=== PATIENT | female | born 1970 | race Hispanic/Latino ===

== ENCOUNTER 2018-01-18 07:30 | Day surgery (SDC) | payer OTHER, MEDICARE ==
[2018-01-18] MEDS ORDERED: Lactated Ringer's 1,000 ML IV ONE (08:09)
[2018-01-18] MEDS ORDERED: Etomidate 20 mg/10ml Inj IV ONE (08:36)
[2018-01-18] MEDS ORDERED: ePHEDrine 50 mg/ml Inj ONE (08:36)
[2018-01-18] MEDS ORDERED: Midazolam 2 MG/2 ML VIAL ONE (08:37)
[2018-01-18] MEDS ORDERED: Esmolol 100 mg/10ml Inj IV ONE (08:37)
[2018-01-18] MEDS ORDERED: Benzocaine/Butamben/Tetracai 14-2-2% TOP Spray TOP ONE (08:37)
[2018-01-18] MEDS ORDERED: Propofol 10 mg/ml Inj (20 ML) ONE (08:38)
[2018-01-18 09:21] VITALS: PULSE 82; TEMP 97
[2018-01-18 09:24] VITALS: BP 145/63; RESP 16; O2SAT 96
[2018-01-18] MEDS ORDERED: Labetalol 5mg/ml (4ml) ONE (15:40)
== END 2018-01-18 13:11 | disposition home or self-care (01) ==
LOC: H.ENDO 07:30 → EDSTATUS 08:45 → H.ENDO 13:11
PROVIDERS: ATTEND Internal Medicine Gastroenterology
DX: K30 Functional dyspepsia (principal); K31.9 Disease of stomach and duodenum, unspecified; J45.909 Unspecified asthma, uncomplicated; I25.10 Atherosclerotic heart disease of native coronary artery without angina pectoris; I50.9 Heart failure, unspecified; E11.9 Type 2 diabetes mellitus without complications; Z86.73 Personal history of transient ischemic attack (TIA), and cerebral infarction without residual deficits
CPT/HCPCS: 43239; 88305; J2250; J2704; J7120

== ENCOUNTER 2018-11-08 15:34 | Inpatient (IN) | payer OTHER, MEDICARE ==
[2018-11-08 15:34] VITALS: BMI 35.3
[2018-11-08 17:10] LABS: BASO % 0.9 % (0.0-2.0); EOS # 0.1 K/uL (0.0-0.7); EOS % 2.5 % (0.0-4.0); HEMOGLOBIN 11.8 g/dL (12.0-16.0); LYMPH # 0.9 K/uL (1.0-4.3); LYMPH % 25.3 % (20.0-40.0); MEAN CELL VOLUME 82.5 fl (81.0-99.0); MEAN CORPUSCULAR HEMOGLOBIN 26.8 pg (27.0-31.0); MEAN CORPUSCULAR HGB CONC 32.5 g/dL (33.0-37.0); MEAN PLATELET VOLUME 7.9 fl (7.2-11.7); MONO # 0.2 K/uL (0.0-0.8); MONO % 5.2 % (0.0-10.0); NEUT # 2.5 K/uL (1.8-7.0); NEUT % 66.1 % (50.0-75.0); NRBC % 0.1 % (0.0-0.0); RBC 4.39 Mil/uL (3.80-5.20); RED CELL DISTRIBUTION WIDTH 19.8 % (11.5-14.5); WHITE BLOOD COUNT 3.7 K/uL (4.8-10.8)
[2018-11-08 17:41] LABS: ALB/GLOB RATIO 0.9 (1.0-2.1); ALBUMIN 3.6 g/dL (3.5-5.0); ALT/SGPT 17 U/L (9-52); AST/SGOT 78 U/L (14-36); BLOOD UREA NITROGEN 13 mg/dl (7-17); CALCIUM 8.7 mg/dL (8.4-10.2); GFR NON-AFRICAN AMERICAN 59
[2018-11-08 17:52] LABS: B-TYPE NATRIURETIC PEPTIDE 1570 pg/ml (0-450)
--- NOTE | 2018-11-08 19:07 | CT ---
Date of service: 11/08/2018 PROCEDURE: CT Abdomen and Pelvis without intravenous contrast HISTORY: upper abd pain, nausea, anorexia COMPARISON: Comparison is made with 11/25/2017 TECHNIQUE: Axial and reformatted coronal and sagittal CT images of the abdomen and pelvis were obtained without IV or oral contrast administration.. Contrast dose: 0 Radiation dose: Total exam DLP = 875.01 mGy-cm. This CT exam was performed using one or more of the following dose reduction techniques: Automated exposure control, adjustment of the mA and/or kV according to patient size, and/or use of iterative reconstruction technique. FINDINGS: LOWER THORAX: Unremarkable. LIVER: Cirrhotic manifestation of the liver are again noted. The evaluation for possible small liver lesion is limited without IV contrast administration. GALLBLADDER AND BILE DUCTS: Distended gallbladder demonstrate mild diffuse wall thickening. PANCREAS: Heterogeneous pancreas. The main pancreatic duct is not clearly visualized. SPLEEN: Splenomegaly is noted. ADRENALS: Unremarkable. No mass. KIDNEYS AND URETERS: Unremarkable. No hydronephrosis. No solid mass. VASCULATURE: Unremarkable. No aortic aneurysm. Moderate aortic atherosclerotic calcification and mural plaque present. BOWEL: Unremarkable. No obstruction. No gross mural thickening. APPENDIX: No evidence of appendicitis PERITONEUM: Unremarkable. No free fluid. No free air. LYMPH NODES: Unremarkable. No enlarged lymph nodes. BLADDER: Unremarkable. REPRODUCTIVE: There is a complex thick wall cystic lesion at the left adnexa measures 5.7 centimeter BONES: No evidence of destructive bony lesion. OTHER FINDINGS: Small amount of ascites in the abdomen and pelvis IMPRESSION: Advanced cirrhosis with findings suggestive of portal hypertension including ascites and splenomegaly. 5.8 centimeter complex cystic mass lesion in the left adnexa. Further evaluation is recommended. The possibility of adnexal neoplasm should be excluded.
[2018-11-08 19:24] LABS: SQUAMOUS EPITHIAL 1 /hpf (0-5); URINE BACTERIA RARE (<OCC); URINE BILIRUBIN NEGATIVE (NEGATIVE); URINE BLOOD NEGATIVE (NEGATIVE); URINE CLARITY CLEAR (Clear); URINE COLOR YELLOW (YELLOW); URINE GLUCOSE (UA) NEG (NEGATIVE); URINE LEUKOCYTE ESTERASE TRACE Leu/uL (Negative); URINE PROTEIN NEGATIVE (NEGATIVE); URINE UROBILINOGEN 0.2-1.0 mg/dL (0.2-1.0)
--- NOTE | 2018-11-08 20:47 | ED PDOC ---
HPI: SOB/CHF/COPD Time Seen by Provider: 11/08/18 16:23 Chief Complaint (Nursing): Shortness Of Breath Chief Complaint (Provider): weak, abdominal pain, SOB History Per: Patient History/Exam Limitations: no limitations Onset/Duration Of Symptoms: Days (6-7), Gradual Current Symptoms Are (Timing): Still Present Quality: Tightness Exacerbating Factor(s): Exertion, Laying Flat Current Respiratory Medications: See Home Med List Severity: Moderate Associated Symptoms: Heart Racing, Dizziness Similar Symptoms Previously: abd pain is new Additional Complaint(s): 48yo female c/o upper abd pain with anorexia, SOB, fatigue and weakness ongoing and worsening over 6-7 days. Associated with nonbloody diarrhea and nausea. D enies fever, sore throat, chest pain or syncope. Admits to compliance w medications. Past Medical History Reviewed: Historical Data, Nursing Documentation, Vital Signs Vital Signs: Last Vital Signs Temp 98.3 F 11/08/18 15:46 Pulse 72 11/08/18 19:13 Resp 20 11/08/18 19:13 BP 155/88 H 11/08/18 19:13 Pulse Ox 98 11/08/18 19:13 - Medical History PMH: Anemia, Anxiety, Arthritis, Asthma, Bronchitis, CAD, CHF, Depression, Diabetes, Deep Vein Thrombosis, Fractures, GERD, HTN, Hypercholesterolemia, Hypothyroidism, Peripheral Edema, Pneumonia, Pulmonary Embolism, Sleep Apnea (use c-pap), TIA (x2 ) Denies: HIV, Osteoporosis, Chronic Kidney Disease - Surgical History Surgical History: Coronary Stent (x4), Endoscopy, Tonsillectomy Denies: Appendectomy, Cholecystectomy - Family History Family History: States: Unknown Family Hx - Living Arrangements Living Arrangements: With Family - Social History Current smoker - smoking cessation education provided: No - Immunization History Hx Tetanus Toxoid Vaccination: No Hx Influenza Vaccination: Yes Hx Pneumococcal Vaccination: No - Home Medications Home Medications: Ambulatory Orders Medication Instructions Recorded Ranolazine [Ranexa] 500 mg PO BID #0 ter 02/27/15 Levothyroxine [Synthroid] 200 mcg PO DAILY 05/30/15 Potassium Chloride [K-Dur 20 mEq 40 meq PO BID 05/30/15 ER Tab] Montelukast [Singulair] 10 mg PO HS 07/18/16 Clopidogrel [Plavix] 75 mg PO DAILY #0 tab 08/01/16 Vilazodone HCl [Viibryd] 20 mg PO DAILY 10/07/16 cloNIDine [Catapres] 0.2 mg PO BID 10/07/16 ALPRAZolam [Xanax] 0.25 mg PO HS PRN 01/28/17 Ergocalciferol (Vitamin D2) 50,000 unit PO TH 01/28/17 [Vitamin D2] Furosemide [Lasix] 40 mg PO BID 01/28/17 Levocetirizine Dihydrochloride 5 mg PO HS 01/28/17 [Xyzal] Rosuvastatin Calcium [Crestor] 10 mg PO QOTHERDAY 01/28/17 metFORMIN [glucOPHAGE] 500 mg PO BID 01/28/17 Levalbuterol Tartrate [Xopenex Hfa] 2 puff IH Q6H PRN 07/29/17 Metoprolol Succinate XL [Toprol XL] 100 mg PO DAILY 08/03/17 Insulin Aspart, Recombinant 15 - 25 unit SC ACTID 08/17/17 [Novolog] Insulin Detemir [Levemir] 20 units SC QAM 08/17/17 Nystatin [Nyamyc] 1 appl TOP BID 09/18/17 Pantoprazole [Protonix EC Tab] 40 mg PO DAILY 12/14/17 Allopurinol [Zyloprim] 1 tab PO DAILY 01/18/18 Insulin Lispro [Humalog (Insulin 20 units SUBCUT TID 01/18/18 Lispro)] - Allergies Allergies/Adverse Reactions: Allergies Allergy/AdvReac Type Severity Reaction Status Date / Time amlodipine [From Norvasc] Allergy RASH Verified 10/20/18 08:13 ciprofloxacin [From Cipro] Allergy NAUSEA Verified 10/20/18 08:13 codeine Allergy FATIGUE Verified 10/20/18 08:13 Iodinated Contrast- Oral and Allergy RASH Verified 10/20/18 08:13 IV Dye kiwi Allergy RASH Verified 10/20/18 08:13 mustard Allergy RASH Verified 10/20/18 08:13 Penicillins Allergy ANAPHYLAXIS Verified 10/20/18 08:13 pepper (genus Capsicum) Allergy RASH Verified 10/20/18 08:13 [pepper] Sulfa (Sulfonamide Allergy RASH Verified 10/20/18 08:13 Antibiotics) tomato Allergy RASH Verified 10/20/18 08:13 metoclopramide HCl AdvReac DIZZINESS Verified 10/20/18 08:13 [From Reglan] filberts Allergy SWELLING Uncoded 10/20/18 08:13 IV CONTRAST Allergy RASH Uncoded 10/20/18 08:13 Review of Systems Constitutional: Positive for: Weakness, Malaise. Negative for: Fever Eyes: Positive for: Other (R eye blindness). Negative for: Vision Change Cardiovascular: Positive for: Palpitations, Orthopnea, Paroxysmal Noc. Dyspnea, Light Headedness Respiratory: Positive for: Shortness of Breath Gastrointestinal: Positive for: Nausea, Abdominal Pain, Diarrhea Genitourinary Female: Negative for: Dysuria, Hematuria Musculoskeletal: Positive for: Back Pain. Negative for: Neck Pain Skin: Negative for: Rash, Lesions Neurological: Positive for: Headache, Dizziness. Negative for: Weakness, Numbness Psych: Negative for: Suicidal ideation Physical Exam - Reviewed Nursing Documentation Reviewed: Yes Vital Signs Reviewed: Yes - Physical Exam Appears: Positive for: Well, Non-toxic, No Acute Distress Head Exam: Positive for: ATRAUMATIC, NORMAL INSPECTION, NORMOCEPHALIC Skin: Positive for: Normal Color, Warm, DRY Eye Exam: Positive for: Normal appearance, EOMI (L eye), PERRL (L eye), Other (R eye patched) ENT: Positive for: Normal ENT Inspection. Negative for: Pharyngeal Erythema Neck: Positive for: Normal, Painless ROM Cardiovascular/Chest: Positive for: Regular Rate, Rhythm Respiratory: Positive for: CNT, Normal Breath Sounds Gastrointestinal/Abdominal: Positive for: Soft, Tenderness (RUQ), Distended, Asicites. Negative for: Guarding Back: Positive for: Normal Inspection Extremity: Positive for: Swelling Neurologic/Psych: Positive for: Alert, Oriented. Negative for: Motor/Sensory Deficits - Laboratory Results Result Diagrams: 11/08/18 17:07 11/08/18 17:07 Lab Results: Troponin I 0.0210 ng/mL (0.00-0.120) 11/08/18 17:07 NT-Pro-B Natriuret Pep 1570 pg/ml (0-450) H 11/08/18 17:07 Total Bilirubin 1.3 mg/dl (0.2-1.3) 11/08/18 17:07 AST 78 U/L (14-36) H D 11/08/18 17:07 ALT 17 U/L (9-52) 11/08/18 17:07 Alkaline Phosphatase 76 U/L (38-126) 11/08/18 17:07 Total Protein 7.6 G/DL (6.3-8.2) 11/08/18 17:07 Albumin 3.6 g/dL (3.5-5.0) 11/08/18 17:07 Globulin 4.0 gm/dL (2.2-3.9) H 11/08/18 17:07 Albumin/Globulin Ratio 0.9 (1.0-2.1) L 11/08/18 17:07 Urine Color Yellow (YELLOW) 11/08/18 19:10 Urine Clarity Clear (Clear) 11/08/18 19:10 Urine pH 7.0 (5.0-8.0) 11/08/18 19:10 Ur Specific [place] 1.010 (1.003-1.030) 11/08/18 19:10 Urine Protein Negative mg/dL (NEGATIVE) 11/08/18 19:10 Urine Glucose (UA) Neg mg/dL (NEGATIVE) 11/08/18 19:10 Urine Ketones Negative mg/dL (NEGATIVE) 11/08/18 19:10 Urine Blood Negative (NEGATIVE) 11/08/18 19:10 Urine Nitrate Negative (NEGATIVE) 11/08/18 19:10 Urine Bilirubin Negative (NEGATIVE) 11/08/18 19:10 Urine Urobilinogen 0.2-1.0 mg/dL (0.2-1.0) 11/08/18 19:10 Ur Leukocyte Esterase Trace Heidi/uL (Negative) 11/08/18 19:10 Urine RBC (Auto) 3 /hpf (0-3) 11/08/18 19:10 Urine Microscopic WBC 5 /hpf (0-5) 11/08/18 19:10 Ur Squamous Epith Cells 1 /hpf (0-5) 11/08/18 19:10 Urine Bacteria Rare (<OCC) 11/08/18 19:10 - ECG ECG Rhythm: Positive for: Sinus Rhythm, Left Bundle Branch Block Rate: 68 O2 Sat by Pulse Oximetry: 98 Pulse Ox Interpretation: Normal - Radiology X-Ray: Interpreted by Me X-Ray Interpretation: Cardiomegaly, Other (neg infiltrates) Medical Decision Making Medical Decision Making: labs reviewed LFTs reveal mild elev AST lipase normal mild leukopenia EKG sinus w LBBB (old) Accession No. 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 Contrast dose: 0 Radiation dose: Total exam DLP = 875.01 mGy-cm. This CT exam was performed using one or more of the following dose reduction techniques: Automated exposure control, adjustment of the mA and/or kV according to patient size, and/or use of iterative reconstruction technique. FINDINGS: LOWER THORAX: Unremarkable. LIVER: Cirrhotic manifestation of the liver are again noted. The evaluation for possible small liver lesion is limited without IV contrast administration. GALLBLADDER AND BILE DUCTS: Distended gallbladder demonstrate mild diffuse wall thickening. PANCREAS: Heterogeneous pancreas. The main pancreatic duct is not clearly visualized. SPLEEN: Splenomegaly is noted. ADRENALS: Unremarkable. No mass. KIDNEYS AND URETERS: Unremarkable. No hydronephrosis. No solid mass. VASCULATURE: Unremarkable. No aortic aneurysm. Moderate aortic atherosclerotic calcification and mural plaque present. BOWEL: Unremarkable. No obstruction. No gross mural thickening. APPENDIX: No evidence of appendicitis PERITONEUM: Unremarkable. No free fluid. No free air. LYMPH NODES: Unremarkable. No enlarged lymph nodes. BLADDER: Unremarkable. REPRODUCTIVE: There is a complex thick wall cystic lesion at the left adnexa measures 5.7 centimeter BONES: No evidence of destructive bony lesion. OTHER FINDINGS: Small amount of ascites in the abdomen and pelvis IMPRESSION: Advanced cirrhosis with findings suggestive of portal hypertension including ascites and splenomegaly. 5.8 centimeter complex cystic mass lesion in the left adnexa. Further evaluation is recommended. The possibility of adnexal neoplasm should be excluded. patient unaware of hepatic findings. Aware of previous [place] from approx 10yrs ago [place] [facility] [place], unclear if same cyst. Post menopausal for approx 10yrs. lasix initiated given SOB and elev BNP US abd and pelvis ordered Admit hospitalist for Dr Granados D/w Dr Granados and Dr Corey. Will need GI eval, followup official US reports r/o cholecystitis. Disposition - Clinical Impression Clinical Impression: Dyspnea, Morbid obesity, Abdominal pain, CHF exacerbation - Patient ED Disposition Is Patient to be Admitted: Yes - Disposition Disposition Time: 20:30 Condition: FAIR - Pt Status Changed To: Hospital Disposition Of: Inpatient - Admit Certification Admit to Inpatient:: After my assessment, the patient will require ho spitalization for at least two midnights. This is because of the severity of symptoms shown, intensity of services needed, and/or the medical risk in this patient being treated as an outpatient. - POA Present On Arrival: Poor Glycemic Control
--- NOTE | 2018-11-09 00:32 | CP.PCM.HP ---
<Chanda Bell - Last Filed: 11/09/18 03:30> History of Present Illness - History of Present Illness History of Present Illness: 48 yo F with history of right eye blindness, TIA, CAD, IDDM II with diabetic neuropathy, hypertension, anemia, gout, anxiety, and environmental allergies- presented to ED with about 1 weeks duration of left sided abdominal pain with loss of appetite, weakness, new onset shortness of breath on light exertion, palpitations. States that despite her not being able to eat and having no appetite, she continues to have soft and at times watery BMs. Endorses that she has also vomited several mornings in a row. States that she can only tolerate tea with honey, however today was able to eat some hashbrowns from [employer]. She has history of anemia; has recently finished 5 monthly infusions of venofer, states done by dispatch manager. Denies fevers, chills, syncope, chest pain, dizziness, dysuria, constipation. PMD: Dr. Granados GI: Dr. Acosta Flight Radio Operator: Dr. Kinjal Kincaid [employer] Operator Dr. Manisha Kincaid PMH: Anemia, Anxiety, Arthritis, Asthma, CAD, Depression, IDDM II; DVT, GERD, HTN, HLD, Hypothyroidism, Osteoporosis, Peripheral Edema, Pulmonary Embolism, Sleep Apnea, TIA, gastroparesis; morbid obesity PSH: Coronary Stent (3x), Endoscopy, Tonsillectomy; malignant tumor of the right eye surgery; D&C X3 SH: Denies smoking, alcohol, drug use FH: NC Allergies: as per EMR: Cipro; Codine; Iodine contrast; PCN; Amlodipine; Reglan; Sulfa, Kiwi; Tomato; mustard; Medication: reviewed, as per med rec In ED: Vitals: BP 156/67, HR 78, Temp 98.3, RR 18, O2 sat 100 on RA EKG - NSR with LBBB CBC: no leukocytosis, Hgb 11.8, PLT 86 CMP - hyperglycemia; AST 78 pro-BNP elevated at 1570; review of EMR shows pt has not had elevated proBNP before; last echo was 07/2016; EF 60%; CHF history documented in prior notes h owever Received 40 mg lasix IVP CXR - cardiomegaly Abd CT: IMPRESSION: Advanced cirrhosis with findings suggestive of portal hypertension including ascites and splenomegaly. 5.8 centimeter complex cystic mass lesion in the left adnexa. Further evaluation is recommended. The possibility of adnexal neoplasm should be excluded. Distended gallbladder with mild diffuse wall thickening also mentioned on CT read. Transvaginal and abd/pelvis US ordered Present on Admission - Present on Admission Any Indicators Present on Admission: Yes History of DVT/PE: Yes History of Uncontrolled Diabetes: Yes Review of Systems - Review of Systems All systems: reviewed and no additional remarkable complaints except Review of Systems: as per hpi Past Patient History - Infectious Disease Hx of Infectious Diseases: None - Past Medical History & Family History Past Medical History?: Yes - Past Social History Smoking Status: Never Smoked Alcohol: None Drugs: Denies Home Situation {Lives}: With Family - CARDIAC Hx Congestive Heart Failure: Yes Hx Heart Attack: Yes Hx Hypercholesterolemia: Yes Hx Hypertension: Yes Hx Peripheral Edema: Yes - PULMONARY Hx Asthma: Yes Hx Bronchitis: Yes Hx Pneumonia: Yes Hx Pulmonary Embolism: Yes Hx Sleep Apnea: Yes (use c-pap) - NEUROLOGICAL Hx Transient Ischemic Attacks (TIA): Yes (x2 2004/2015) - HEENT Hx HEENT Problems: Yes Hx Blind: Yes (right eye) - RENAL Hx Chronic Kidney Disease: No - ENDOCRINE/METABOLIC Hx Diabetes Mellitus Type 1: Yes Hx Diabetes Mellitus Type 2: Yes Hx Hypothyroidism: Yes - HEMATOLOGICAL/ONCOLOGICAL Hx AIDS: No Hx Anemia: Yes Hx Cancer: Yes (right eye) Hx Human Immunodeficiency Virus (HIV): No - INTEGUMENTARY Hx Dermatological Problems: Yes - MUSCULOSKELETAL/RHEUMATOLOGICAL Hx Arthritis: Yes Hx Falls: Yes Hx Fractures: Yes Hx Osteoporosis: No - GASTROINTESTINAL Hx Gastrointestinal Disorders: Yes Hx Gastroesophageal Reflux: Yes Hx Hemorrhoids: Yes Other/Comment: attempted lap band - GENITOURINARY/GYNECOLOGICAL Hx Genitourinary Disorders: No Hx Urinary Tract Infection: Yes - PSYCHIATRIC Hx Anxiety: Yes Hx Depression: Yes Hx Substance Use: No - SURGICAL HISTORY Hx Appendectomy: No Hx Cholecystectomy: No Hx Coronary Stent: Yes (x4) Hx Tonsillectomy: Yes - ANESTHESIA Hx Anesthesia: Yes Hx Anesthesia Reactions: Yes (takes pre-meds prior to anesthesia) Meds Allergies/Adverse Reactions: Allergies Allergy/AdvReac Type Severity Reaction Status Date / Time amlodipine [From Norvasc] Allergy RASH Verified 10/20/18 08:13 ciprofloxacin [From Cipro] Allergy NAUSEA Verified 10/20/18 08:13 codeine Allergy FATIGUE Verified 10/20/18 08:13 Iodinated Contrast- Oral and Allergy RASH Verified 10/20/18 08:13 IV Dye kiwi Allergy RASH Verified 10/20/18 08:13 mustard Allergy RASH Verified 10/20/18 08:13 Penicillins Allergy ANAPHYLAXIS Verified 10/20/18 08:13 pepper (genus Capsicum) Allergy RASH Verified 10/20/18 08:13 [pepper] Sulfa (Sulfonamide Allergy RASH Verified 10/20/18 08:13 Antibiotics) tomato Allergy RASH Verified 10/20/18 08:13 metoclopramide HCl AdvReac DIZZINESS Verified 10/20/18 08:13 [From Reglan] filberts Allergy SWELLING Uncoded 10/20/18 08:13 IV CONTRAST Allergy RASH Uncoded 10/20/18 08:13 Physical Exam - Constitutional Appears: Non-toxic, No Acute Distress - Eye Exam Additional comments: eye patch over R eye - ENT Exam ENT Exam: Mucous Membranes Moist - Neck Exam Neck exam: Positive for: Full Rom - Respiratory Exam Respiratory Exam: NORMAL BREATHING PATTERN. absent: Respiratory Distress Additional comments: breath sounds equal bilaterally; diminished at bases, no wheezing auscultated - Cardiovascular Exam Cardiovascular Exam: REGULAR RHYTHM, +S1, +S2 - GI/Abdominal Exam GI & Abdominal Exam: Normal Bowel Sounds, Soft (exam limited by patient's body habitus), Tenderness (diffuse mild, left sided; no right sided tenderness) - Extremities Exam Extremities exam: Positive for: pedal edema (1+). Negative for: calf tenderness - Back Exam Back exam: NORMAL INSPECTION - Neurological Exam Neurological exam: Alert, Oriented x3 - Psychiatric Exam Psychiatric exam: Normal Affect, Normal Mood - Skin Skin Exam: Dry, Warm Additional comments: multiple papillomas Results - Vital Signs Recent Vital Signs: Last Vital Signs Temp 98.6 F 11/08/18 23:00 Pulse 68 11/08/18 23:11 Resp 18 11/08/18 23:47 BP 156/70 H 11/08/18 23:00 Pulse Ox 98 11/08/18 23:11 - Labs Result Diagrams: 11/08/18 17:07 11/08/18 17:07 Labs: Laboratory Results - last 24 hr 11/08/18 11/08/18 11/08/18 17:07 17:07 19:10 WBC 3.7 L RBC 4.39 Hgb 11.8 L Hct 36.2 MCV 82.5 MCH 26.8 L MCHC 32.5 L RDW 19.8 H Plt Count 86 L D MPV 7.9 Neut % (Auto) 66.1 Lymph % (Auto) 25.3 [place] % (Auto) 5.2 Eos % (Auto) 2.5 Baso % (Auto) 0.9 Neut # (Auto) 2.5 Lymph # (Auto) 0.9 L [place] # (Auto) 0.2 Eos # (Auto) 0.1 Baso # (Auto) 0.0 Sodium 137 Potassium 4.9 Chloride 97 L Carbon Dioxide 27 Anion Gap 18 BUN 13 Creatinine 1.0 Est GFR ( Amer) > 60 Est GFR (Non-Af Amer) 59 Random Glucose 252 H Calcium 8.7 Phosphorus 3.5 Magnesium 1.7 Total Bilirubin 1.3 AST 78 H D ALT 17 Alkaline Phosphatase 76 Troponin I 0.0210 NT-Pro-B Natriuret Pep 1570 H Total Protein 7.6 Albumin 3.6 Globulin 4.0 H Albumin/Globulin Ratio 0.9 L Lipase TSH 3rd Generation 4.35 Urine Color Yellow Urine Clarity Clear Urine pH 7.0 Ur Specific [place] 1.010 Urine Protein Negative Urine Glucose (UA) Neg Urine Ketones Negative Urine Blood Negative Urine Nitrate Negative Urine Bilirubin Negative Urine Urobilinogen 0.2-1.0 Ur Leukocyte Esterase Trace Urine RBC (Auto) 3 Urine Microscopic WBC 5 Ur Squamous Epith Cells 1 Urine Bacteria Rare 11/08/18 22:00 WBC RBC Hgb Hct MCV MCH MCHC RDW Plt Count MPV Neut % (Auto) Lymph % (Auto) [place] % (Auto) Eos % (Auto) Baso % (Auto) Neut # (Auto) Lymph # (Auto) [place] # (Auto) Eos # (Auto) Baso # (Auto) Sodium Potassium Chloride Carbon Dioxide Anion Gap BUN Creatinine Est GFR ( Amer) Est GFR (Non-Af Amer) Random Glucose Calcium Phosphorus Magnesium Total Bilirubin AST ALT Alkaline Phosphatase Troponin I NT-Pro-B Natriuret Pep Total Protein Albumin Globulin Albumin/Globulin Ratio Lipase 199 TSH 3rd Generation Urine Color Urine Clarity Urine pH Ur Specific [place] Urine Protein Urine Glucose (UA) Urine Ketones Urine Blood Urine Nitrate Urine Bilirubin Urine Urobilinogen Ur Leukocyte Esterase Urine RBC (Auto) Urine Microscopic WBC Ur Squamous Epith Cells Urine Bacteria Assessment & Plan - Assessment and Plan (Free Text) Assessment: 48 yo F with history of right eye blindness, TIA, CAD, IDDM II with diabetic neuropathy, hypertension, anemia, gout, anxiety, and environmental allergies with possible CHF exacerbation vs new CHF?, new cirrhosis. Plan: Shortness of Breath - May be CHF new vs exacerbation?; elevated proBNP and new onset SOB - Lasix 40 mg IVP BID - Echo ordered Abdominal pain - May be due to cirrhosis vs cholecystitis - F/u reports for abdominal sono - UA - GI consult - Dr. Acosta, f/u recs - HbsAg, Hep C Ab, Hep A IgM ordered - F/u CMP Adnexal Cyst - F/u results of TVUS - Consider [employer] eval Hypertension - Resume home meds clonidine, metoprolol succinate, CAD - Resume home meds for BP control and Ranexa IDDM - Resume insulin; hold metformin for now - Insulin coverage scale; hypoglycemia protocol Hypothyroidism - Resume levothyroxine 200 mcg daily History of TIA - Resume plavix Anxiety - Home med xanax 0.25 mg HS PRN ordered Anemia - Asymptomatic; Hgb 11.8 - F/u CBC Gout - Resume home med allopurinol Allergies - Resume home med montelukast Diet - NPO for now; plan for Consistent Carb/Heart Healthy when can eat - Protonix for GI prophylaxis DVT prophylaxis - Lovenox Pt examined/discussed with Dr. Corey. <Annalisa Varela - Last Filed: 11/09/18 19:21> Results - Vital Signs Recent Vital Signs: Last Vital Signs Temp 98.1 F 11/09/18 16:00 Pulse 63 11/09/18 17:15 Resp 16 11/09/18 16:00 BP 134/79 11/09/18 17:24 Pulse Ox 92 L 11/09/18 16:00 - Labs Result Diagrams: 11/09/18 04:30 11/09/18 04:30 Labs: Laboratory Results - last 24 hr 11/08/18 11/08/18 11/09/18 19:10 22:00 01:27 WBC RBC Hgb Hct MCV MCH MCHC RDW Plt Count MPV Neut % (Auto) Lymph % (Auto) [place] % (Auto) Eos % (Auto) Baso % (Auto) Neut # (Auto) Lymph # (Auto) [place] # (Auto) Eos # (Auto) Baso # (Auto) Sodium Potassium Chloride Carbon Dioxide Anion Gap BUN Creatinine Est GFR ( Amer) Est GFR (Non-Af Amer) POC Glucose (mg/dL) 303 H Random Glucose Calcium Total Bilirubin AST ALT Alkaline Phosphatase Troponin I Total Protein Albumin Globulin Albumin/Globulin Ratio Lipase 199 Urine Color Yellow Urine Clarity Clear Urine pH 7.0 Ur Specific [place] 1.010 Urine Protein Negative Urine Glucose (UA) Neg Urine Ketones Negative Urine Blood Negative Urine Nitrate Negative Urine Bilirubin Negative Urine Urobilinogen 0.2-1.0 Ur Leukocyte Esterase Trace Urine RBC (Auto) 3 Urine Microscopic WBC 5 Ur Squamous Epith Cells 1 Urine Bacteria Rare Hepatitis A IgM Ab Hep Bs Antigen Hepatitis C Antibody 11/09/18 11/09/18 11/09/18 04:30 04:30 04:30 WBC 3.1 L RBC 4.11 Hgb 11.0 L Hct 34.1 MCV 82.9 MCH 26.8 L MCHC 32.4 L RDW 19.5 H Plt Count 86 L MPV 7.8 Neut % (Auto) 64.4 Lymph % (Auto) 27.4 [place] % (Auto) 5.1 Eos % (Auto) 2.8 Baso % (Auto) 0.3 Neut # (Auto) 2.0 Lymph # (Auto) 0.8 L [place] # (Auto) 0.2 Eos # (Auto) 0.1 Baso # (Auto) 0.0 Sodium 138 Potassium 3.1 L Chloride 98 Carbon Dioxide 29 Anion Gap 14 BUN 12 Creatinine 1.0 Est GFR ( Amer) > 60 Est GFR (Non-Af Amer) 59 POC Glucose (mg/dL) Random Glucose 280 H Calcium 8.6 Total Bilirubin 0.7 AST 49 H D ALT 26 Alkaline Phosphatase 80 Troponin I Total Protein 6.9 Albumin 3.2 L Globulin 3.7 Albumin/Globulin Ratio 0.9 L Lipase Urine Color Urine Clarity Urine pH Ur Specific [place] Urine Protein Urine Glucose (UA) Urine Ketones Urine Blood Urine Nitrate Urine Bilirubin Urine Urobilinogen Ur Leukocyte Esterase Urine RBC (Auto) Urine Microscopic WBC Ur Squamous Epith Cells Urine Bacteria Hepatitis A IgM Ab Negative Hep Bs Antigen Negative Hepatitis C Antibody Negative 11/09/18 11/09/18 11/09/18 06:02 08:20 09:10 WBC RBC Hgb Hct MCV MCH MCHC RDW Plt Count MPV Neut % (Auto) Lymph % (Auto) [place] % (Auto) Eos % (Auto) Baso % (Auto) Neut # (Auto) Lymph # (Auto) [place] # (Auto) Eos # (Auto) Baso # (Auto) Sodium Potassium Chloride Carbon Dioxide Anion Gap BUN Creatinine Est GFR ( Amer) Est GFR (Non-Af Amer) POC Glucose (mg/dL) 235 H Random Glucose Calcium Total Bilirubin AST ALT Alkaline Phosphatase Troponin I 0.0150 Total Protein Albumin Globulin Albumin/Globulin Ratio Lipase Urine Color Yellow Urine Clarity Clear Urine pH 7.0 Ur Specific [place] 1.008 Urine Protein Negative Urine Glucose (UA) 50 Urine Ketones Negative Urine Blood Negative Urine Nitrate Negative Urine Bilirubin Negative Urine Urobilinogen 0.2-1.0 Ur Leukocyte Esterase Neg Urine RBC (Auto) 1 Urine Microscopic WBC 1 Ur Squamous Epith Cells < 1 Urine Bacteria Rare Hepatitis A IgM Ab Hep Bs Antigen Hepatitis C Antibody 11/09/18 11/09/18 10:55 16:19 WBC RBC Hgb Hct MCV MCH MCHC RDW Plt Count MPV Neut % (Auto) Lymph % (Auto) [place] % (Auto) Eos % (Auto) Baso % (Auto) Neut # (Auto) Lymph # (Auto) [place] # (Auto) Eos # (Auto) Baso # (Auto) Sodium Potassium Chloride Carbon Dioxide Anion Gap BUN Creatinine Est GFR ( Amer) Est GFR (Non-Af Amer) POC Glucose (mg/dL) 180 H 266 H Random Glucose Calcium Total Bilirubin AST ALT Alkaline Phosphatase Troponin I Total Protein Albumin Globulin Albumin/Globulin Ratio Lipase Urine Color Urine Clarity Urine pH Ur Specific [place] Urine Protein Urine Glucose (UA) Urine Ketones Urine Blood Urine Nitrate Urine Bilirubin Urine Urobilinogen Ur Leukocyte Esterase Urine RBC (Auto) Urine Microscopic WBC Ur Squamous Epith Cells Urine Bacteria Hepatitis A IgM Ab Hep Bs Antigen Hepatitis C Antibody Attending/Attestation - Attestation I have personally seen and examined this patient.: Yes I have fully participated in the care of the patient.: Yes I have reviewed all pertinent clinical information: Yes Notes (Text): Dyspnea prob due to Acute CHF exacerbation , diastolic dysfunction - elevated proBNP - cont Lasix IV and Toprol Adnexal Mass Dr Lemus consulted however Pt refused to be seen by [employer] and would prefer to have this evaluated a outpt - PET scan as outpt Cirrhosis prob due to fatty liver - will consult Dr Moya for further recommendation DM type II Insulin Dependent with Hyperglycemia - Dr Marte consulted - cont Insulin Hypokalemia likely due to Diuretics - Potassium supplement Pancytopenia likely due to the liver dis
[2018-11-09 05:17] LABS: BASO % 0.3 % (0.0-2.0); EOS # 0.1 K/uL (0.0-0.7); EOS % 2.8 % (0.0-4.0); LYMPH # 0.8 K/uL (1.0-4.3); LYMPH % 27.4 % (20.0-40.0); MEAN CELL VOLUME 82.9 fl (81.0-99.0); MEAN CORPUSCULAR HEMOGLOBIN 26.8 pg (27.0-31.0); MEAN CORPUSCULAR HGB CONC 32.4 g/dL (33.0-37.0); MEAN PLATELET VOLUME 7.8 fl (7.2-11.7); MONO # 0.2 K/uL (0.0-0.8); MONO % 5.1 % (0.0-10.0); NEUT % 64.4 % (50.0-75.0); NRBC % 0.2 % (0.0-0.0); RBC 4.11 Mil/uL (3.80-5.20); RED CELL DISTRIBUTION WIDTH 19.5 % (11.5-14.5); WHITE BLOOD COUNT 3.1 K/uL (4.8-10.8)
[2018-11-09 05:28] LABS: ALB/GLOB RATIO 0.9 (1.0-2.1); ALBUMIN 3.2 g/dL (3.5-5.0); ALT/SGPT 26 U/L (9-52); AST/SGOT 49 U/L (14-36); BLOOD UREA NITROGEN 12 mg/dl (7-17); CALCIUM 8.6 mg/dL (8.4-10.2); GFR NON-AFRICAN AMERICAN 59
[2018-11-09] MEDS ORDERED: Dextrose 50% SYRINGE Inj (50 ml) IV PRN (06:12)
[2018-11-09] MEDS ORDERED: Glucagon Recombinant 1 mg Inj IM PRN (06:12)
[2018-11-09] MEDS: Levothyroxine 200 MCG TAB PO SCH (06:27)
[2018-11-09] MEDS ORDERED: Potassium Chloride 20 mEq ER Tab PO ONE (07:00)
[2018-11-09] MEDS ORDERED: Enoxaparin 40 mg Syringe SC SCH (09:00)
[2018-11-09] MEDS ORDERED: INSULIN LISPRO 20 UNIT SUBCUT SCH (09:00)
[2018-11-09 09:18] LABS: SQUAMOUS EPITHIAL < 1 /hpf (0-5); URINE BACTERIA RARE (<OCC); URINE BILIRUBIN NEGATIVE (NEGATIVE); URINE BLOOD NEGATIVE (NEGATIVE); URINE CLARITY CLEAR (Clear); URINE COLOR YELLOW (YELLOW); URINE GLUCOSE (UA) 50 mg/dL (NEGATIVE); URINE LEUKOCYTE ESTERASE NEG Leu/uL (Negative); URINE PROTEIN NEGATIVE (NEGATIVE); URINE UROBILINOGEN 0.2-1.0 mg/dL (0.2-1.0)
[2018-11-09] MEDS: Potassium Chloride 20 mEq ER Tab PO SCH ×2 (09:47→17:21)
[2018-11-09] MEDS: Insulin Detemir 100 Units/ml Inj SC SCH ×3 (09:50→22:25)
[2018-11-09] MEDS: Enoxaparin 40 mg Syringe SC SCH ×2 (09:51→10:01)
[2018-11-09] MEDS: Pantoprazole 40 mg EC Tab PO SCH (09:52)
[2018-11-09] MEDS: Metoprolol Succinate 100 mg XL Tab PO SCH (09:53)
[2018-11-09] MEDS: Ranolazine 500 mg Extended Release Tablets PO SCH ×2 (09:53→17:26)
[2018-11-09] MEDS: Insulin Lispro (humaLOG) 100 Units/ml Inj SC SCH ×6 (09:55→22:34)
--- NOTE | 2018-11-09 11:02 | CP.PCM.CON ---
Past Patient History - Infectious Disease Hx of Infectious Diseases: None - Past Medical History & Family History Past Medical History?: Yes - Past Social History Smoking Status: Never Smoked Alcohol: None Drugs: Denies Home Situation {Lives}: With Family - CARDIAC Hx Congestive Heart Failure: Yes Hx Heart Attack: Yes Hx Hypercholesterolemia: Yes Hx Hypertension: Yes Hx Peripheral Edema: Yes - PULMONARY Hx Asthma: Yes Hx Bronchitis: Yes Hx Pneumonia: Yes Hx Pulmonary Embolism: Yes Hx Sleep Apnea: Yes (use c-pap) - NEUROLOGICAL Hx Transient Ischemic Attacks (TIA): Yes (x2 2004/2015) - HEENT Hx HEENT Problems: Yes Hx Blind: Yes (right eye) - RENAL Hx Chronic Kidney Disease: No - ENDOCRINE/METABOLIC Hx Diabetes Mellitus Type 1: Yes Hx Diabetes Mellitus Type 2: Yes Hx Hypothyroidism: Yes - HEMATOLOGICAL/ONCOLOGICAL Hx AIDS: No Hx Anemia: Yes Hx Cancer: Yes (right eye) Hx Human Immunodeficiency Virus (HIV): No - INTEGUMENTARY Hx Dermatological Problems: Yes - MUSCULOSKELETAL/RHEUMATOLOGICAL Hx Arthritis: Yes Hx Falls: Yes Hx Fractures: Yes Hx Osteoporosis: No - GASTROINTESTINAL Hx Gastrointestinal Disorders: Yes Hx Gastroesophageal Reflux: Yes Hx Hemorrhoids: Yes Other/Comment: attempted lap band - GENITOURINARY/GYNECOLOGICAL Hx Genitourinary Disorders: No Hx Urinary Tract Infection: Yes - PSYCHIATRIC Hx Anxiety: Yes Hx Depression: Yes Hx Substance Use: No - SURGICAL HISTORY Hx Appendectomy: No Hx Cholecystectomy: No Hx Coronary Stent: Yes (x4) Hx Tonsillectomy: Yes - ANESTHESIA Hx Anesthesia: Yes Hx Anesthesia Reactions: Yes (takes pre-meds prior to anesthesia) Meds Allergies/Adverse Reactions: Allergies Allergy/AdvReac Type Severity Reaction Status Date / Time amlodipine [From Norvasc] Allergy RASH Verified 10/20/18 08:13 ciprofloxacin [From Cipro] Allergy NAUSEA Verified 10/20/18 08:13 codeine Allergy FATIGUE Verified 10/20/18 08:13 Iodinated Contrast- Oral and Allergy RASH Verified 10/20/18 08:13 IV Dye kiwi Allergy RASH Verified 10/20/18 08:13 mustard Allergy RASH Verified 10/20/18 08:13 Penicillins Allergy ANAPHYLAXIS Verified 10/20/18 08:13 pepper (genus Capsicum) Allergy RASH Verified 10/20/18 08:13 [pepper] Sulfa (Sulfonamide Allergy RASH Verified 10/20/18 08:13 Antibiotics) tomato Allergy RASH Verified 10/20/18 08:13 metoclopramide HCl AdvReac DIZZINESS Verified 10/20/18 08:13 [From Reglan] filberts Allergy SWELLING Uncoded 10/20/18 08:13 IV CONTRAST Allergy RASH Uncoded 10/20/18 08:13 - Medications Medications: Current Medications Allopurinol (Zyloprim) 300 mg PO DAILY [facility] Last Admin: 11/09/18 09:53 Dose: 300 mg Alprazolam (Xanax) 0.25 mg PO HS PRN PRN Reason: Anxiety Stop: 11/15/18 22:17 Last Admin: 11/09/18 02:23 Dose: 0.25 mg Clonidine HCl (Catapres) 0.2 mg PO BID [facility] Last Admin: 11/09/18 09:45 Dose: 0.2 mg Clopidogrel Bisulfate (Plavix) 75 mg PO DAILY [facility] Last Admin: 11/09/18 09:52 Dose: 75 mg Dextrose (Dextrose 50% Inj) 0 ml IV STAT PRN; Protocol PRN Reason: Hypoglycemia Protocol Dextrose (Glutose 15) 0 gm PO ONCE PRN; Protocol PRN Reason: Hypoglycemia Protocol Enoxaparin Sodium (Lovenox) 40 mg SC DAILY [facility]; Protocol Last Admin: 11/09/18 10:01 Dose: Not Given Ergocalciferol (Drisdol 50,000 Intl Units Cap) 1 cap PO TH [facility] Furosemide (Lasix) 40 mg IVP BID [facility] Last Admin: 11/09/18 09:48 Dose: 40 mg Glucagon (Glucagen Diagnostic Kit) 0 mg IM STAT PRN; Protocol PRN Reason: Hypoglycemia Protocol Insulin Detemir (Levemir) 20 units SC QAM [facility] Last Admin: 11/09/18 10:24 Dose: Not Given Insulin Human Lispro (Humalog) 20 units SC TID [facility] Last Admin: 11/09/18 10:24 Dose: Not Given Insulin Human Lispro (Humalog) 0 units SC ACHS [facility]; Protocol Last Admin: 11/09/18 09:55 Dose: Not Given Levothyroxine Sodium (Synthroid) 200 mcg PO DAILY@0630 [facility] Last Admin: 11/09/18 06:27 Dose: 200 mcg Metoprolol Succinate (Toprol Xl) 100 mg PO DAILY [facility] Last Admin: 11/09/18 09:53 Dose: 100 mg Montelukast Sodium (Singulair) 10 mg PO [facility] Nystatin (Nystop Topical Powder) 1 applic TOP BID [facility] Last Admin: 11/09/18 09:52 Dose: 1 applic Pantoprazole Sodium (Protonix Ec Tab) 40 mg PO DAILY [facility] Last Admin: 11/09/18 09:52 Dose: 40 mg Potassium Chloride (K-Dur 20 Meq Er Tab) 40 meq PO BID [facility] Last Admin: 11/09/18 09:47 Dose: 40 meq Ranolazine (Ranexa) 500 mg PO BID [facility] Last Admin: 11/09/18 09:53 Dose: 500 mg Results - Vital Signs Recent Vital Signs: Last Vital Signs Temp 97.8 F 11/09/18 08:07 Pulse 65 11/09/18 09:53 Resp 20 11/09/18 08:07 BP 157/83 H 11/09/18 09:53 Pulse Ox 95 11/09/18 08:07 - Labs Result Diagrams: 11/09/18 04:30 11/09/18 04:30 Labs: Laboratory Results - last 24 hr 11/08/18 11/08/18 11/08/18 17:07 17:07 19:10 WBC 3.7 L RBC 4.39 Hgb 11.8 L Hct 36.2 MCV 82.5 MCH 26.8 L MCHC 32.5 L RDW 19.8 H Plt Count 86 L D MPV 7.9 Neut % (Auto) 66.1 Lymph % (Auto) 25.3 [place] % (Auto) 5.2 Eos % (Auto) 2.5 Baso % (Auto) 0.9 Neut # (Auto) 2.5 Lymph # (Auto) 0.9 L [place] # (Auto) 0.2 Eos # (Auto) 0.1 Baso # (Auto) 0.0 Sodium 137 Potassium 4.9 Chloride 97 L Carbon Dioxide 27 Anion Gap 18 BUN 13 Creatinine 1.0 Est GFR ( Amer) > 60 Est GFR (Non-Af Amer) 59 POC Glucose (mg/dL) Random Glucose 252 H Calcium 8.7 Phosphorus 3.5 Magnesium 1.7 Total Bilirubin 1.3 AST 78 H D ALT 17 Alkaline Phosphatase 76 Troponin I 0.0210 NT-Pro-B Natriuret Pep 1570 H Total Protein 7.6 Albumin 3.6 Globulin 4.0 H Albumin/Globulin Ratio 0.9 L Lipase TSH 3rd Generation 4.35 Urine Color Yellow Urine Clarity Clear Urine pH 7.0 Ur Specific [place] 1.010 Urine Protein Negative Urine Glucose (UA) Neg Urine Ketones Negative Urine Blood Negative Urine Nitrate Negative Urine Bilirubin Negative Urine Urobilinogen 0.2-1.0 Ur Leukocyte Esterase Trace Urine RBC (Auto) 3 Urine Microscopic WBC 5 Ur Squamous Epith Cells 1 Urine Bacteria Rare 11/08/18 11/09/18 11/09/18 22:00 01:27 04:30 WBC 3.1 L RBC 4.11 Hgb 11.0 L Hct 34.1 MCV 82.9 MCH 26.8 L MCHC 32.4 L RDW 19.5 H Plt Count 86 L MPV 7.8 Neut % (Auto) 64.4 Lymph % (Auto) 27.4 [place] % (Auto) 5.1 Eos % (Auto) 2.8 Baso % (Auto) 0.3 Neut # (Auto) 2.0 Lymph # (Auto) 0.8 L [place] # (Auto) 0.2 Eos # (Auto) 0.1 Baso # (Auto) 0.0 Sodium Potassium Chloride Carbon Dioxide Anion Gap BUN Creatinine Est GFR ( Amer) Est GFR (Non-Af Amer) POC Glucose (mg/dL) 303 H Random Glucose Calcium Phosphorus Magnesium Total Bilirubin AST ALT Alkaline Phosphatase Troponin I NT-Pro-B Natriuret Pep Total Protein Albumin Globulin Albumin/Globulin Ratio Lipase 199 TSH 3rd Generation Urine Color Urine Clarity Urine pH Ur Specific [place] Urine Protein Urine Glucose (UA) Urine Ketones Urine Blood Urine Nitrate Urine Bilirubin Urine Urobilinogen Ur Leukocyte Esterase Urine RBC (Auto) Urine Microscopic WBC Ur Squamous Epith Cells Urine Bacteria 11/09/18 11/09/18 11/09/18 04:30 06:02 08:20 WBC RBC Hgb Hct MCV MCH MCHC RDW Plt Count MPV Neut % (Auto) Lymph % (Auto) [place] % (Auto) Eos % (Auto) Baso % (Auto) Neut # (Auto) Lymph # (Auto) [place] # (Auto) Eos # (Auto) Baso # (Auto) Sodium 138 Potassium 3.1 L Chloride 98 Carbon Dioxide 29 Anion Gap 14 BUN 12 Creatinine 1.0 Est GFR ( Amer) > 60 Est GFR (Non-Af Amer) 59 POC Glucose (mg/dL) 235 H Random Glucose 280 H Calcium 8.6 Phosphorus Magnesium Total Bilirubin 0.7 AST 49 H D ALT 26 Alkaline Phosphatase 80 Troponin I 0.0150 NT-Pro-B Natriuret Pep Total Protein 6.9 Albumin 3.2 L Globulin 3.7 Albumin/Globulin Ratio 0.9 L Lipase TSH 3rd Generation Urine Color Urine Clarity Urine pH Ur Specific [place] Urine Protein Urine Glucose (UA) Urine Ketones Urine Blood Urine Nitrate Urine Bilirubin Urine Urobilinogen Ur Leukocyte Esterase Urine RBC (Auto) Urine Microscopic WBC Ur Squamous Epith Cells Urine Bacteria 11/09/18 09:10 WBC RBC Hgb Hct MCV MCH MCHC RDW Plt Count MPV Neut % (Auto) Lymph % (Auto) [place] % (Auto) Eos % (Auto) Baso % (Auto) Neut # (Auto) Lymph # (Auto) [place] # (Auto) Eos # (Auto) Baso # (Auto) Sodium Potassium Chloride Carbon Dioxide Anion Gap BUN Creatinine Est GFR ( Amer) Est GFR (Non-Af Amer) POC Glucose (mg/dL) Random Glucose Calcium Phosphorus Magnesium Total Bilirubin AST ALT Alkaline Phosphatase Troponin I NT-Pro-B Natriuret Pep Total Protein Albumin Globulin Albumin/Globulin Ratio Lipase TSH 3rd Generation Urine Color Yellow Urine Clarity Clear Urine pH 7.0 Ur Specific [place] 1.008 Urine Protein Negative Urine Glucose (UA) 50 Urine Ketones Negative Urine Blood Negative Urine Nitrate Negative Urine Bilirubin Negative Urine Urobilinogen 0.2-1.0 Ur Leukocyte Esterase Neg Urine RBC (Auto) 1 Urine Microscopic WBC 1 Ur Squamous Epith Cells < 1 Urine Bacteria Rare Assessment & Plan (1) Asthma Status: Chronic Priority: High (2) Morbid exogenous obesity Status: Chronic Priority: High (3) Obesity hypoventilation syndrome Status: Chronic Priority: High (4) Obstructive sleep apnea (adult) (pediatric) Status: Chronic Priority: High - Date & Time Date: 11/09/18 Time: 10:57
--- NOTE | 2018-11-09 11:10 | CP.PCM.CON ---
History of Present Illness - History of Present Illness History of Present Illness: This is a 48 yrs old female who is well known to me. She has multiple medical problems including DM, HTN,HDL, iron deficiency anemia,morbid obesity. I have seen her for iron deficiency anemia, and given her iv iron infusions off and on .. Last dose of iron was 2 weeks ago. She is admitted with left sided abdominal pain, in the flank. A CAt scan done yesterday showed a cirrhotic liver with varices and splenomegaly. She has low WBC count 3.4, and low platelet count as of 85K. She was also short of breath, and po2 wa65 even though she was using a CPAP machine.. Her PO@ is normal now. The ct scan also sowed a complex mass in the left ovary, but pt says she has always had a cyst in that ovary but was told by her SHOPFITTER , 10 yrs ago to leave it alone unless it bothers her. Past Patient History - Infectious Disease Hx of Infectious Diseases: None - Past Medical History & Family History Past Medical History?: Yes - Past Social History Smoking Status: Never Smoked Alcohol: None Drugs: Denies Home Situation {Lives}: With Family - CARDIAC Hx Congestive Heart Failure: Yes Hx Heart Attack: Yes Hx Hypercholesterolemia: Yes Hx Hypertension: Yes Hx Peripheral Edema: Yes - PULMONARY Hx Asthma: Yes Hx Bronchitis: Yes Hx Pneumonia: Yes Hx Pulmonary Embolism: Yes Hx Sleep Apnea: Yes (use c-pap) - NEUROLOGICAL Hx Transient Ischemic Attacks (TIA): Yes (x2 2004/2015) - HEENT Hx HEENT Problems: Yes Hx Blind: Yes (right eye) - RENAL Hx Chronic Kidney Disease: No - ENDOCRINE/METABOLIC Hx Diabetes Mellitus Type 1: Yes Hx Diabetes Mellitus Type 2: Yes Hx Hypothyroidism: Yes - HEMATOLOGICAL/ONCOLOGICAL Hx AIDS: No Hx Anemia: Yes Hx Cancer: Yes (right eye) Hx Human Immunodeficiency Virus (HIV): No - INTEGUMENTARY Hx Dermatological Problems: Yes - MUSCULOSKELETAL/RHEUMATOLOGICAL Hx Arthritis: Yes Hx Falls: Yes Hx Fractures: Yes Hx Osteoporosis: No - GASTROINTESTINAL Hx Gastrointestinal Disorders: Yes Hx Gastroesophageal Reflux: Yes Hx Hemorrhoids: Yes Other/Comment: attempted lap band - GENITOURINARY/GYNECOLOGICAL Hx Genitourinary Disorders: No Hx Urinary Tract Infection: Yes - PSYCHIATRIC Hx Anxiety: Yes Hx Depression: Yes Hx Substance Use: No - SURGICAL HISTORY Hx Appendectomy: No Hx Cholecystectomy: No Hx Coronary Stent: Yes (x4) Hx Tonsillectomy: Yes - ANESTHESIA Hx Anesthesia: Yes Hx Anesthesia Reactions: Yes (takes pre-meds prior to anesthesia) Meds Allergies/Adverse Reactions: Allergies Allergy/AdvReac Type Severity Reaction Status Date / Time amlodipine [From Norvasc] Allergy RASH Verified 10/20/18 08:13 ciprofloxacin [From Cipro] Allergy NAUSEA Verified 10/20/18 08:13 codeine Allergy FATIGUE Verified 10/20/18 08:13 Iodinated Contrast- Oral and Allergy RASH Verified 10/20/18 08:13 IV Dye kiwi Allergy RASH Verified 10/20/18 08:13 mustard Allergy RASH Verified 10/20/18 08:13 Penicillins Allergy ANAPHYLAXIS Verified 10/20/18 08:13 pepper (genus Capsicum) Allergy RASH Verified 10/20/18 08:13 [pepper] Sulfa (Sulfonamide Allergy RASH Verified 10/20/18 08:13 Antibiotics) tomato Allergy RASH Verified 10/20/18 08:13 metoclopramide HCl AdvReac DIZZINESS Verified 10/20/18 08:13 [From Reglan] filberts Allergy SWELLING Uncoded 10/20/18 08:13 IV CONTRAST Allergy RASH Uncoded 10/20/18 08:13 - Medications Medications: Current Medications Allopurinol (Zyloprim) 300 mg PO DAILY [facility] Last Admin: 11/09/18 09:53 Dose: 300 mg Alprazolam (Xanax) 0.25 mg PO HS PRN PRN Reason: Anxiety Stop: 11/15/18 22:17 Last Admin: 11/09/18 02:23 Dose: 0.25 mg Clonidine HCl (Catapres) 0.2 mg PO BID [facility] Last Admin: 11/09/18 09:45 Dose: 0.2 mg Clopidogrel Bisulfate (Plavix) 75 mg PO DAILY [facility] Last Admin: 11/09/18 09:52 Dose: 75 mg Dextrose (Dextrose 50% Inj) 0 ml IV STAT PRN; Protocol PRN Reason: Hypoglycemia Protocol Dextrose (Glutose 15) 0 gm PO ONCE PRN; Protocol PRN Reason: Hypoglycemia Protocol Enoxaparin Sodium (Lovenox) 40 mg SC DAILY [facility]; Protocol Last Admin: 11/09/18 10:01 Dose: Not Given Ergocalciferol (Drisdol 50,000 Intl Units Cap) 1 cap PO TH [facility] Furosemide (Lasix) 40 mg IVP BID [facility] Last Admin: 11/09/18 09:48 Dose: 40 mg Glucagon (Glucagen Diagnostic Kit) 0 mg IM STAT PRN; Protocol PRN Reason: Hypoglycemia Protocol Insulin Detemir (Levemir) 20 units SC QAM [facility] Last Admin: 11/09/18 10:24 Dose: Not Given Insulin Human Lispro (Humalog) 20 units SC TID [facility] Last Admin: 11/09/18 10:24 Dose: Not Given Insulin Human Lispro (Humalog) 0 units SC ACHS [facility]; Protocol Last Admin: 11/09/18 09:55 Dose: Not Given Levothyroxine Sodium (Synthroid) 200 mcg PO DAILY@0630 [facility] Last Admin: 11/09/18 06:27 Dose: 200 mcg Metoprolol Succinate (Toprol Xl) 100 mg PO DAILY [facility] Last Admin: 11/09/18 09:53 Dose: 100 mg Montelukast Sodium (Singulair) 10 mg PO [facility] Nystatin (Nystop Topical Powder) 1 applic TOP BID [facility] Last Admin: 11/09/18 09:52 Dose: 1 applic Pantoprazole Sodium (Protonix Ec Tab) 40 mg PO DAILY [facility] Last Admin: 11/09/18 09:52 Dose: 40 mg Potassium Chloride (K-Dur 20 Meq Er Tab) 40 meq PO BID [facility] Last Admin: 11/09/18 09:47 Dose: 40 meq Ranolazine (Ranexa) 500 mg PO BID [facility] Last Admin: 11/09/18 09:53 Dose: 500 mg Physical Exam - Additional Findings Additional findings: Physical exam; alert,well oriented, in no acute distress, morbidly obese neck; Supple, no adenopathy Chest; Clear, no rales or rhonchi Heart; RSR,no murmur Abd; Obese, no mass alpable Results - Vital Signs Recent Vital Signs: Last Vital Signs Temp 97.8 F 11/09/18 08:07 Pulse 65 11/09/18 09:53 Resp 20 11/09/18 08:07 BP 157/83 H 11/09/18 09:53 Pulse Ox 95 11/09/18 08:07 - Labs Result Diagrams: 11/09/18 04:30 11/09/18 04:30 Labs: Laboratory Results - last 24 hr 11/08/18 11/08/18 11/08/18 17:07 17:07 19:10 WBC 3.7 L RBC 4.39 Hgb 11.8 L Hct 36.2 MCV 82.5 MCH 26.8 L MCHC 32.5 L RDW 19.8 H Plt Count 86 L D MPV 7.9 Neut % (Auto) 66.1 Lymph % (Auto) 25.3 Hyde % (Auto) 5.2 Eos % (Auto) 2.5 Baso % (Auto) 0.9 Neut # (Auto) 2.5 Lymph # (Auto) 0.9 L Hyde # (Auto) 0.2 Eos # (Auto) 0.1 Baso # (Auto) 0.0 Sodium 137 Potassium 4.9 Chloride 97 L Carbon Dioxide 27 Anion Gap 18 BUN 13 Creatinine 1.0 Est GFR ( Amer) > 60 Est GFR (Non-Af Amer) 59 POC Glucose (mg/dL) Random Glucose 252 H Calcium 8.7 Phosphorus 3.5 Magnesium 1.7 Total Bilirubin 1.3 AST 78 H D ALT 17 Alkaline Phosphatase 76 Troponin I 0.0210 NT-Pro-B Natriuret Pep 1570 H Total Protein 7.6 Albumin 3.6 Globulin 4.0 H Albumin/Globulin Ratio 0.9 L Lipase TSH 3rd Generation 4.35 Urine Color Yellow Urine Clarity Clear Urine pH 7.0 Ur Specific [place] 1.010 Urine Protein Negative Urine Glucose (UA) Neg Urine Ketones Negative Urine Blood Negative Urine Nitrate Negative Urine Bilirubin Negative Urine Urobilinogen 0.2-1.0 Ur Leukocyte Esterase Trace Urine RBC (Auto) 3 Urine Microscopic WBC 5 Ur Squamous Epith Cells 1 Urine Bacteria Rare 11/08/18 11/09/18 11/09/18 22:00 01:27 04:30 WBC 3.1 L RBC 4.11 Hgb 11.0 L Hct 34.1 MCV 82.9 MCH 26.8 L MCHC 32.4 L RDW 19.5 H Plt Count 86 L MPV 7.8 Neut % (Auto) 64.4 Lymph % (Auto) 27.4 Hyde % (Auto) 5.1 Eos % (Auto) 2.8 Baso % (Auto) 0.3 Neut # (Auto) 2.0 Lymph # (Auto) 0.8 L Hyde # (Auto) 0.2 Eos # (Auto) 0.1 Baso # (Auto) 0.0 Sodium Potassium Chloride Carbon Dioxide Anion Gap BUN Creatinine Est GFR ( Amer) Est GFR (Non-Af Amer) POC Glucose (mg/dL) 303 H Random Glucose Calcium Phosphorus Magnesium Total Bilirubin AST ALT Alkaline Phosphatase Troponin I NT-Pro-B Natriuret Pep Total Protein Albumin Globulin Albumin/Globulin Ratio Lipase 199 TSH 3rd Generation Urine Color Urine Clarity Urine pH Ur Specific [place] Urine Protein Urine Glucose (UA) Urine Ketones Urine Blood Urine Nitrate Urine Bilirubin Urine Urobilinogen Ur Leukocyte Esterase Urine RBC (Auto) Urine Microscopic WBC Ur Squamous Epith Cells Urine Bacteria 11/09/18 11/09/18 11/09/18 04:30 06:02 08:20 WBC RBC Hgb Hct MCV MCH MCHC RDW Plt Count MPV Neut % (Auto) Lymph % (Auto) Hyde % (Auto) Eos % (Auto) Baso % (Auto) Neut # (Auto) Lymph # (Auto) Hyde # (Auto) Eos # (Auto) Baso # (Auto) Sodium 138 Potassium 3.1 L Chloride 98 Carbon Dioxide 29 Anion Gap 14 BUN 12 Creatinine 1.0 Est GFR ( Amer) > 60 Est GFR (Non-Af Amer) 59 POC Glucose (mg/dL) 235 H Random Glucose 280 H Calcium 8.6 Phosphorus Magnesium Total Bilirubin 0.7 AST 49 H D ALT 26 Alkaline Phosphatase 80 Troponin I 0.0150 NT-Pro-B Natriuret Pep Total Protein 6.9 Albumin 3.2 L Globulin 3.7 Albumin/Globulin Ratio 0.9 L Lipase TSH 3rd Generation Urine Color Urine Clarity Urine pH Ur Specific [place] Urine Protein Urine Glucose (UA) Urine Ketones Urine Blood Urine Nitrate Urine Bilirubin Urine Urobilinogen Ur Leukocyte Esterase Urine RBC (Auto) Urine Microscopic WBC Ur Squamous Epith Cells Urine Bacteria 11/09/18 09:10 WBC RBC Hgb Hct MCV MCH MCHC RDW Plt Count MPV Neut % (Auto) Lymph % (Auto) Hyde % (Auto) Eos % (Auto) Baso % (Auto) Neut # (Auto) Lymph # (Auto) Hyde # (Auto) Eos # (Auto) Baso # (Auto) Sodium Potassium Chloride Carbon Dioxide Anion Gap BUN Creatinine Est GFR ( Amer) Est GFR (Non-Af Amer) POC Glucose (mg/dL) Random Glucose Calcium Phosphorus Magnesium Total Bilirubin AST ALT Alkaline Phosphatase Troponin I NT-Pro-B Natriuret Pep Total Protein Albumin Globulin Albumin/Globulin Ratio Lipase TSH 3rd Generation Urine Color Yellow Urine Clarity Clear Urine pH 7.0 Ur Specific [place] 1.008 Urine Protein Negative Urine Glucose (UA) 50 Urine Ketones Negative Urine Blood Negative Urine Nitrate Negative Urine Bilirubin Negative Urine Urobilinogen 0.2-1.0 Ur Leukocyte Esterase Neg Urine RBC (Auto) 1 Urine Microscopic WBC 1 Ur Squamous Epith Cells < 1 Urine Bacteria Rare Assessment & Plan - Assessment and Plan (Free Text) Assessment: Impression Cirrhosis due to a fatty liver, with varices,ascitis and splenomegaly COPD Plan: Plan; Would like to have [facility]OPFITTER consult to get an opinion re the ovarian mass Can also get a PET scan on discharge. - Date & Time Date: 11/09/18 Time: 11:24
--- NOTE | 2018-11-09 12:20 | US ---
Date of service: 11/08/2018 HISTORY: RUQ eval for cholecystitis COMPARISON: CT abdomen and pelvis from 11/08/2018. TECHNIQUE: Sonographic evaluation of the right upper quadrant of the abdomen. FINDINGS: LIVER: Measures 19.3 cm in length. There is diffuse increased echogenicity of the liver parenchyma. No mass. No intrahepatic bile duct dilatation. GALLBLADDER: There are no gallstones or pericholecystic fluid. There is diffuse gallbladder wall thickening which measures 11.2 mm. The sonographic Ratliff's sign is negative. COMMON BILE DUCT: Measures 5.3 mm. No stones. No dilatation. PANCREAS: Unremarkable as visualized. No mass. No ductal dilatation. RIGHT KIDNEY: Measures 11.3 cm in length. Normal echogenicity. No calculus, mass, or hydronephrosis. AORTA: No aneurysmal dilatation. IVC: Unremarkable. OTHER FINDINGS: Small amount of free fluid. IMPRESSION: 1. No cholelithiasis. Severe diffuse wall gallbladder wall thickening which is nonspecific and could be related to underdistention, gallbladder edema or thickening related to secondary etiologies. 2. Mild hepatomegaly. Diffuse increased echogenicity in the liver may reflect hepatic steatosis however parenchymal infectious/ inflammatory etiologies cannot be entirely excluded. Clinical and laboratory correlation is advised. 3. Small abdominal ascites. A preliminary report was provided by [employer].
--- NOTE | 2018-11-09 12:24 | US ---
Date of service: 11/08/2018 HISTORY: L adnexal cyst COMPARISON: None available. TECHNIQUE: Transabdominal pelvic ultrasound was performed. The patient refused transvaginal examination. Examination is limited due to patient body habitus FINDINGS: UTERUS: Measures 8.8 x 5.9 x 4.5 cm. Anteverted, normal in size and appearance. No fibroid or other mass lesion seen. ENDOMETRIUM: Unremarkable. CERVIX: No cervical abnormality identified. RIGHT OVARY: Not visualized. LEFT OVARY: Not visualized. FREE FLUID: No significant free fluid noted. OTHER FINDINGS: None. IMPRESSION: Limited transabdominal pelvic ultrasound due to patient body habitus. The patient refused endovaginal examination. Both ovaries are not visualized. No adnexal mass. Endovaginal examination may be helpful for further evaluation.
--- NOTE | 2018-11-09 12:27 | RAD ---
Date of service: 11/08/2018 HISTORY: Evaluate for pneumonia COMPARISON: 01/12/2018. TECHNIQUE: Chest PA and lateral FINDINGS: LINES AND TUBES: None. LUNG AND PLEURA: The lungs are well inflated and clear. No pleural effusion or pneumothorax. HEART AND MEDIASTINUM: The heart is not enlarged. No aortic atherosclerotic calcifications present. The hilar and mediastinal contours are within normal limits. SKELETAL STRUCTURES: The bony structures are within normal limits for the patient's age. VISUALIZED UPPER ABDOMEN: Normal. OTHER FINDINGS: None. IMPRESSION: No active pulmonary disease.
--- NOTE | 2018-11-09 12:32 | CARD ---
APPROVED REPORT Date of service: 11/09/2018 EXAM: Two-dimensional and M-mode echocardiogram with Doppler and color Doppler. Other Information Quality : AverageRhythm : NSR INDICATION Dyspnea Elevated Pro BNP 2D DIMENSIONS IVSd1.25 (0.7-1.1cm)LVDd4.69 (3.9-5.9cm) PWd1.18 (0.7-1.1cm)IVSs1.02 (0.8-1.2cm) LVDs4.17 (2.5-4.0cm)FS (%) 11.0 % PWs1.49 (0.8-1.2cm) M-Mode DIMENSIONS Left Atrium (MM)4.93 (2.5-4.0cm)Aortic Root2.65 (2.2-3.7cm) Aortic Cusp Exc.1.95 (1.5-2.0cm) Aortic Valve AoV Peak Xpqwupft895.4cm/sAoV VTI27.4cmAO Peak GR.7mmHg LVOT Peak Rstlzlmb943.6cm/sLVOT VTI23.76cmAO Mean GR.4mmHg Mitral Valve MV E Euhihvzt64.0cm/sMV DECEL [id number] A Nciodeat51.6cm/s MV [id number]/A ratio0.9MVA (PHT)2.98cm2 TDI E/Lateral E'0.0E/Medial E'0.0 LEFT VENTRICLE The left ventricle is normal size. There is borderline concentric left ventricular hypertrophy. The left ventricular systolic function is normal. The estimated ejection fraction is 55-60% No regional wall motion abnormalities noted.. Transmitral Doppler flow pattern is Grade I-abnormal relaxation pattern. No left ventricle thrombus noted on this study. There is no ventricular septal defect visualized. There is no left ventricular aneurysm. There is no mass noted in the left ventricle. RIGHT VENTRICLE The right ventricle is normal size. There is normal right ventricular wall thickness. The right ventricular systolic function is normal. ATRIA The left atrium is mild to moderately dilated. The right atrium size is normal. The interatrial septum is intact with no evidence for an atrial septal defect. AORTIC VALVE The aortic valve is normal in structure. No aortic regurgitation is present. There is no aortic valvular stenosis. There is no aortic valvular vegetation. MITRAL VALVE The mitral valve is normal in structure. There is no evidence of mitral valve prolapse. There is no mitral valve stenosis. There is no mitral valve regurgitation noted. TRICUSPID VALVE The tricuspid valve is normal in structure. There is no tricuspid valve regurgitation noted. There is no tricuspid valve prolapse or vegetation. There is no tricuspid valve stenosis. PULMONIC VALVE The pulmonary valve is normal in structure. There is no pulmonic valvular regurgitation. There is no pulmonic valvular stenosis. GREAT VESSELS The aortic root is normal in size. The ascending aorta is normal in size. The pulmonary artery is normal. The IVC is not visualized. PERICARDIAL EFFUSION There is no pericardial effusion. There is no pleural effusion. <Conclusion> Technically difficult study The estimated ejection fraction is 55-60% Transmitral Doppler flow pattern is Grade I-abnormal relaxation pattern. The left atrium is mild to moderately dilated. There is no tricuspid valve regurgitation noted. The IVC is not visualized.
--- NOTE | 2018-11-09 12:38 | CARD ---
APPROVED REPORT Date of service: 11/08/2018 EKG Measurement Heart [id number] <Conclusion> Sinus rhythm with 1st degree AV block Left bundle branch block Abnormal ECG
[2018-11-09 12:59] LABS: HEPATITIS B SURFACE AG Negative (NEGATIVE)
[2018-11-09 13:04] LABS: HEPATITIS A IGM NEGATIVE (NEGATIVE)
--- NOTE | 2018-11-09 13:07 | CP.PCM.CON ---
Past Patient History - Infectious Disease Hx of Infectious Diseases: None - Past Medical History & Family History Past Medical History?: Yes - Past Social History Smoking Status: Never Smoked Alcohol: None Drugs: Denies Home Situation {Lives}: With Family - CARDIAC Hx Congestive Heart Failure: Yes Hx Heart Attack: Yes Hx Hypercholesterolemia: Yes Hx Hypertension: Yes Hx Peripheral Edema: Yes - PULMONARY Hx Asthma: Yes Hx Bronchitis: Yes Hx Pneumonia: Yes Hx Pulmonary Embolism: Yes Hx Sleep Apnea: Yes (use c-pap) - NEUROLOGICAL Hx Transient Ischemic Attacks (TIA): Yes (x2 2004/2015) - HEENT Hx HEENT Problems: Yes Hx Blind: Yes (right eye) - RENAL Hx Chronic Kidney Disease: No - ENDOCRINE/METABOLIC Hx Diabetes Mellitus Type 1: Yes Hx Diabetes Mellitus Type 2: Yes Hx Hypothyroidism: Yes - HEMATOLOGICAL/ONCOLOGICAL Hx AIDS: No Hx Anemia: Yes Hx Cancer: Yes (right eye) Hx Human Immunodeficiency Virus (HIV): No - INTEGUMENTARY Hx Dermatological Problems: Yes - MUSCULOSKELETAL/RHEUMATOLOGICAL Hx Arthritis: Yes Hx Falls: Yes Hx Fractures: Yes Hx Osteoporosis: No - GASTROINTESTINAL Hx Gastrointestinal Disorders: Yes Hx Gastroesophageal Reflux: Yes Hx Hemorrhoids: Yes Other/Comment: attempted lap band - GENITOURINARY/GYNECOLOGICAL Hx Genitourinary Disorders: No Hx Urinary Tract Infection: Yes - PSYCHIATRIC Hx Anxiety: Yes Hx Depression: Yes Hx Substance Use: No - SURGICAL HISTORY Hx Appendectomy: No Hx Cholecystectomy: No Hx Coronary Stent: Yes (x4) Hx Tonsillectomy: Yes - ANESTHESIA Hx Anesthesia: Yes Hx Anesthesia Reactions: Yes (takes pre-meds prior to anesthesia) Meds Allergies/Adverse Reactions: Allergies Allergy/AdvReac Type Severity Reaction Status Date / Time amlodipine [From Norvasc] Allergy RASH Verified 10/20/18 08:13 ciprofloxacin [From Cipro] Allergy NAUSEA Verified 10/20/18 08:13 codeine Allergy FATIGUE Verified 10/20/18 08:13 Iodinated Contrast- Oral and Allergy RASH Verified 10/20/18 08:13 IV Dye kiwi Allergy RASH Verified 10/20/18 08:13 mustard Allergy RASH Verified 10/20/18 08:13 Penicillins Allergy ANAPHYLAXIS Verified 10/20/18 08:13 pepper (genus Capsicum) Allergy RASH Verified 10/20/18 08:13 [pepper] Sulfa (Sulfonamide Allergy RASH Verified 10/20/18 08:13 Antibiotics) tomato Allergy RASH Verified 10/20/18 08:13 metoclopramide HCl AdvReac DIZZINESS Verified 10/20/18 08:13 [From Reglan] filberts Allergy SWELLING Uncoded 10/20/18 08:13 IV CONTRAST Allergy RASH Uncoded 10/20/18 08:13 - Medications Medications: Current Medications Allopurinol (Zyloprim) 300 mg PO DAILY [facility] Last Admin: 11/09/18 09:53 Dose: 300 mg Alprazolam (Xanax) 0.25 mg PO HS PRN PRN Reason: Anxiety Stop: 11/15/18 22:17 Last Admin: 11/09/18 02:23 Dose: 0.25 mg Clonidine HCl (Catapres) 0.2 mg PO BID [facility] Last Admin: 11/09/18 09:45 Dose: 0.2 mg Clopidogrel Bisulfate (Plavix) 75 mg PO DAILY [facility] Last Admin: 11/09/18 09:52 Dose: 75 mg Dextrose (Dextrose 50% Inj) 0 ml IV STAT PRN; Protocol PRN Reason: Hypoglycemia Protocol Dextrose (Glutose 15) 0 gm PO ONCE PRN; Protocol PRN Reason: Hypoglycemia Protocol Enoxaparin Sodium (Lovenox) 40 mg SC DAILY [facility]; Protocol Last Admin: 11/09/18 10:01 Dose: Not Given Ergocalciferol (Drisdol 50,000 Intl Units Cap) 1 cap PO TH [facility] Furosemide (Lasix) 40 mg IVP BID [facility] Last Admin: 11/09/18 09:48 Dose: 40 mg Glucagon (Glucagen Diagnostic Kit) 0 mg IM STAT PRN; Protocol PRN Reason: Hypoglycemia Protocol Insulin Detemir (Levemir) 20 units SC QAM [facility] Last Admin: 11/09/18 10:24 Dose: Not Given Insulin Detemir (Levemir) 30 units SC HS [facility] Insulin Human Lispro (Humalog) 24 units SC AC ANTWAN Insulin Human Lispro (Humalog) 0 units SC ACHS [facility] Levothyroxine Sodium (Synthroid) 200 mcg PO DAILY@0630 [facility] Last Admin: 11/09/18 06:27 Dose: 200 mcg Metoprolol Succinate (Toprol Xl) 100 mg PO DAILY [facility] Last Admin: 11/09/18 09:53 Dose: 100 mg Montelukast Sodium (Singulair) 10 mg PO HS [facility] Nystatin (Nystop Topical Powder) 1 applic TOP BID [facility] Last Admin: 11/09/18 09:52 Dose: 1 applic Pantoprazole Sodium (Protonix Ec Tab) 40 mg PO DAILY [facility] Last Admin: 11/09/18 09:52 Dose: 40 mg Potassium Chloride (K-Dur 20 Meq Er Tab) 40 meq PO BID [facility] Last Admin: 11/09/18 09:47 Dose: 40 meq Ranolazine (Ranexa) 500 mg PO BID [facility] Last Admin: 11/09/18 09:53 Dose: 500 mg Results - Vital Signs Recent Vital Signs: Last Vital Signs Temp 97.7 F 11/09/18 12:31 Pulse 65 11/09/18 12:31 Resp 20 11/09/18 12:31 BP 112/74 11/09/18 12:31 Pulse Ox 93 L 11/09/18 12:31 - Labs Result Diagrams: 11/09/18 04:30 11/09/18 04:30 Labs: Laboratory Results - last 24 hr 11/08/18 11/08/18 11/08/18 17:07 17:07 19:10 WBC 3.7 L RBC 4.39 Hgb 11.8 L Hct 36.2 MCV 82.5 MCH 26.8 L MCHC 32.5 L RDW 19.8 H Plt Count 86 L D MPV 7.9 Neut % (Auto) 66.1 Lymph % (Auto) 25.3 [place] % (Auto) 5.2 Eos % (Auto) 2.5 Baso % (Auto) 0.9 Neut # (Auto) 2.5 Lymph # (Auto) 0.9 L [place] # (Auto) 0.2 Eos # (Auto) 0.1 Baso # (Auto) 0.0 Sodium 137 Potassium 4.9 Chloride 97 L Carbon Dioxide 27 Anion Gap 18 BUN 13 Creatinine 1.0 Est GFR ( Amer) > 60 Est GFR (Non-Af Amer) 59 POC Glucose (mg/dL) Random Glucose 252 H Calcium 8.7 Phosphorus 3.5 Magnesium 1.7 Total Bilirubin 1.3 AST 78 H D ALT 17 Alkaline Phosphatase 76 Troponin I 0.0210 NT-Pro-B Natriuret Pep 1570 H Total Protein 7.6 Albumin 3.6 Globulin 4.0 H Albumin/Globulin Ratio 0.9 L Lipase TSH 3rd Generation 4.35 Urine Color Yellow Urine Clarity Clear Urine pH 7.0 Ur Specific [place] 1.010 Urine Protein Negative Urine Glucose (UA) Neg Urine Ketones Negative Urine Blood Negative Urine Nitrate Negative Urine Bilirubin Negative Urine Urobilinogen 0.2-1.0 Ur Leukocyte Esterase Trace Urine RBC (Auto) 3 Urine Microscopic WBC 5 Ur Squamous Epith Cells 1 Urine Bacteria Rare Hepatitis A IgM Ab Hep Bs Antigen 11/08/18 11/09/18 11/09/18 22:00 01:27 04:30 WBC 3.1 L RBC 4.11 Hgb 11.0 L Hct 34.1 MCV 82.9 MCH 26.8 L MCHC 32.4 L RDW 19.5 H Plt Count 86 L MPV 7.8 Neut % (Auto) 64.4 Lymph % (Auto) 27.4 [place] % (Auto) 5.1 Eos % (Auto) 2.8 Baso % (Auto) 0.3 Neut # (Auto) 2.0 Lymph # (Auto) 0.8 L [place] # (Auto) 0.2 Eos # (Auto) 0.1 Baso # (Auto) 0.0 Sodium Potassium Chloride Carbon Dioxide Anion Gap BUN Creatinine Est GFR ( Amer) Est GFR (Non-Af Amer) POC Glucose (mg/dL) 303 H Random Glucose Calcium Phosphorus Magnesium Total Bilirubin AST ALT Alkaline Phosphatase Troponin I NT-Pro-B Natriuret Pep Total Protein Albumin Globulin Albumin/Globulin Ratio Lipase 199 TSH 3rd Generation Urine Color Urine Clarity Urine pH Ur Specific [place] Urine Protein Urine Glucose (UA) Urine Ketones Urine Blood Urine Nitrate Urine Bilirubin Urine Urobilinogen Ur Leukocyte Esterase Urine RBC (Auto) Urine Microscopic WBC Ur Squamous Epith Cells Urine Bacteria Hepatitis A IgM Ab Hep Bs Antigen 11/09/18 11/09/18 11/09/18 04:30 04:30 06:02 WBC RBC Hgb Hct MCV MCH MCHC RDW Plt Count MPV Neut % (Auto) Lymph % (Auto) [place] % (Auto) Eos % (Auto) Baso % (Auto) Neut # (Auto) Lymph # (Auto) [place] # (Auto) Eos # (Auto) Baso # (Auto) Sodium 138 Potassium 3.1 L Chloride 98 Carbon Dioxide 29 Anion Gap 14 BUN 12 Creatinine 1.0 Est GFR ( Amer) > 60 Est GFR (Non-Af Amer) 59 POC Glucose (mg/dL) 235 H Random Glucose 280 H Calcium 8.6 Phosphorus Magnesium Total Bilirubin 0.7 AST 49 H D ALT 26 Alkaline Phosphatase 80 Troponin I NT-Pro-B Natriuret Pep Total Protein 6.9 Albumin 3.2 L Globulin 3.7 Albumin/Globulin Ratio 0.9 L Lipase TSH 3rd Generation Urine Color Urine Clarity Urine pH Ur Specific [place] Urine Protein Urine Glucose (UA) Urine Ketones Urine Blood Urine Nitrate Urine Bilirubin Urine Urobilinogen Ur Leukocyte Esterase Urine RBC (Auto) Urine Microscopic WBC Ur Squamous Epith Cells Urine Bacteria Hepatitis A IgM Ab Negative Hep Bs Antigen Negative 11/09/18 11/09/18 11/09/18 08:20 09:10 10:55 WBC RBC Hgb Hct MCV MCH MCHC RDW Plt Count MPV Neut % (Auto) Lymph % (Auto) [place] % (Auto) Eos % (Auto) Baso % (Auto) Neut # (Auto) Lymph # (Auto) [place] # (Auto) Eos # (Auto) Baso # (Auto) Sodium Potassium Chloride Carbon Dioxide Anion Gap BUN Creatinine Est GFR ( Amer) Est GFR (Non-Af Amer) POC Glucose (mg/dL) 180 H Random Glucose Calcium Phosphorus Magnesium Total Bilirubin AST ALT Alkaline Phosphatase Troponin I 0.0150 NT-Pro-B Natriuret Pep Total Protein Albumin Globulin Albumin/Globulin Ratio Lipase TSH 3rd Generation Urine Color Yellow Urine Clarity Clear Urine pH 7.0 Ur Specific [place] 1.008 Urine Protein Negative Urine Glucose (UA) 50 Urine Ketones Negative Urine Blood Negative Urine Nitrate Negative Urine Bilirubin Negative Urine Urobilinogen 0.2-1.0 Ur Leukocyte Esterase Neg Urine RBC (Auto) 1 Urine Microscopic WBC 1 Ur Squamous Epith Cells < 1 Urine Bacteria Rare Hepatitis A IgM Ab Hep Bs Antigen
[2018-11-09 13:16] LABS: HEPATITIS C ANTIBODY NEGATIVE (NEGATIVE)
--- NOTE | 2018-11-09 16:52 | CP.PCM.CON ---
History of Present Illness - History of Present Illness History of Present Illness: Asked to see patient by Dr Paulino for cirrhosis 48 year old female with morbid obesity, diabetes, sleep apnea, and COPD, admitted for shortness of breath. 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 She suffered subsequent pituatary insufficiency,diabetes, and weight gain a s a child. She notes being evaluated for a lap band in 2009 and had a cardiac arrest in the OR? During this admission she underwent a non-contrast CT scan showing cirrhosis, ascites and splenomegaly. Review of Systems - Constitutional Constitutional: Sleep Apnea, Weight Gain, Weakness - Cardiovascular Cardiovascular: As Per HPI - Respiratory Respiratory: Dyspnea on Exertion - Gastrointestinal Gastrointestinal: As Per HPI - Menstruation Menstruation: As Per HPI - Musculoskeletal Musculoskeletal: As Per HPI - Integumentary Integumentary: As Per HPI - Neurological Neurological: As Per HPI - Endocrine Endocrine: As Per HPI Past Patient History - Infectious Disease Hx of Infectious Diseases: None - Past Medical History & Family History Past Medical History?: Yes - Past Social History Smoking Status: Never Smoked Alcohol: None Drugs: Denies Home Situation {Lives}: With Family - CARDIAC Hx Congestive Heart Failure: Yes Hx Heart Attack: Yes Hx Hypercholesterolemia: Yes Hx Hypertension: Yes Hx Peripheral Edema: Yes - PULMONARY Hx Asthma: Yes Hx Bronchitis: Yes Hx Pneumonia: Yes Hx Pulmonary Embolism: Yes Hx Sleep Apnea: Yes (use c-pap) - NEUROLOGICAL Hx Transient Ischemic Attacks (TIA): Yes (x2 2004/2015) - HEENT Hx HEENT Problems: Yes Hx Blind: Yes (right eye) - RENAL Hx Chronic Kidney Disease: No - ENDOCRINE/METABOLIC Hx Diabetes Mellitus Type 1: Yes Hx Diabetes Mellitus Type 2: Yes Hx Hypothyroidism: Yes - HEMATOLOGICAL/ONCOLOGICAL Hx AIDS: No Hx Anemia: Yes Hx Cancer: Yes (right eye) Hx Human Immunodeficiency Virus (HIV): No - INTEGUMENTARY Hx Dermatological Problems: Yes - MUSCULOSKELETAL/RHEUMATOLOGICAL Hx Arthritis: Yes Hx Falls: Yes Hx Fractures: Yes Hx Osteoporosis: No - GASTROINTESTINAL Hx Gastrointestinal Disorders: Yes Hx Gastroesophageal Reflux: Yes Hx Hemorrhoids: Yes Other/Comment: attempted lap band - GENITOURINARY/GYNECOLOGICAL Hx Genitourinary Disorders: No Hx Urinary Tract Infection: Yes - PSYCHIATRIC Hx Anxiety: Yes Hx Depression: Yes Hx Substance Use: No - SURGICAL HISTORY Hx Appendectomy: No Hx Cholecystectomy: No Hx Coronary Stent: Yes (x4) Hx Tonsillectomy: Yes - ANESTHESIA Hx Anesthesia: Yes Hx Anesthesia Reactions: Yes (takes pre-meds prior to anesthesia) Meds Allergies/Adverse Reactions: Allergies Allergy/AdvReac Type Severity Reaction Status Date / Time amlodipine [From Norvasc] Allergy RASH Verified 10/20/18 08:13 ciprofloxacin [From Cipro] Allergy NAUSEA Verified 10/20/18 08:13 codeine Allergy FATIGUE Verified 10/20/18 08:13 Iodinated Contrast- Oral and Allergy RASH Verified 10/20/18 08:13 IV Dye kiwi Allergy RASH Verified 10/20/18 08:13 mustard Allergy RASH Verified 10/20/18 08:13 Penicillins Allergy ANAPHYLAXIS Verified 10/20/18 08:13 pepper (genus Capsicum) Allergy RASH Verified 10/20/18 08:13 [pepper] Sulfa (Sulfonamide Allergy RASH Verified 10/20/18 08:13 Antibiotics) tomato Allergy RASH Verified 10/20/18 08:13 metoclopramide HCl AdvReac DIZZINESS Verified 10/20/18 08:13 [From Reglan] filberts Allergy SWELLING Uncoded 10/20/18 08:13 IV CONTRAST Allergy RASH Uncoded 10/20/18 08:13 - Medications Medications: Current Medications Allopurinol (Zyloprim) 300 mg PO DAILY [facility] Last Admin: 11/09/18 09:53 Dose: 300 mg Alprazolam (Xanax) 0.25 mg PO HS PRN PRN Reason: Anxiety Stop: 11/15/18 22:17 Last Admin: 11/09/18 02:23 Dose: 0.25 mg Clonidine HCl (Catapres) 0.2 mg PO BID [facility] Last Admin: 11/09/18 09:45 Dose: 0.2 mg Clopidogrel Bisulfate (Plavix) 75 mg PO DAILY [facility] Last Admin: 11/09/18 09:52 Dose: 75 mg Dextrose (Dextrose 50% Inj) 0 ml IV STAT PRN; Protocol PRN Reason: Hypoglycemia Protocol Dextrose (Glutose 15) 0 gm PO ONCE PRN; Protocol PRN Reason: Hypoglycemia Protocol Enoxaparin Sodium (Lovenox) 40 mg SC DAILY [facility]; Protocol Last Admin: 11/09/18 10:01 Dose: Not Given Ergocalciferol (Drisdol 50,000 Intl Units Cap) 1 cap PO TH [facility] Furosemide (Lasix) 40 mg IVP BID [facility] Last Admin: 11/09/18 09:48 Dose: 40 mg Glucagon (Glucagen Diagnostic Kit) 0 mg IM STAT PRN; Protocol PRN Reason: Hypoglycemia Protocol Insulin Detemir (Levemir) 20 units SC QAM [facility] Last Admin: 11/09/18 10:24 Dose: Not Given Insulin Detemir (Levemir) 30 units SC HS [facility] Insulin Human Lispro (Humalog) 24 units SC AC ANTWAN Insulin Human Lispro (Humalog) 0 units SC ACHS [facility] Levothyroxine Sodium (Synthroid) 200 mcg PO DAILY@0630 [facility] Last Admin: 11/09/18 06:27 Dose: 200 mcg Metoprolol Succinate (Toprol Xl) 100 mg PO DAILY [facility] Last Admin: 11/09/18 09:53 Dose: 100 mg Montelukast Sodium (Singulair) 10 mg PO [facility] Nystatin (Nystop Topical Powder) 1 applic TOP BID [facility] Last Admin: 11/09/18 09:52 Dose: 1 applic Pantoprazole Sodium (Protonix Ec Tab) 40 mg PO DAILY [facility] Last Admin: 11/09/18 09:52 Dose: 40 mg Potassium Chloride (K-Dur 20 Meq Er Tab) 40 meq PO BID [facility] Last Admin: 11/09/18 09:47 Dose: 40 meq Ranolazine (Ranexa) 500 mg PO BID [facility] Last Admin: 11/09/18 09:53 Dose: 500 mg Physical Exam - Constitutional Appears: No Acute Distress, Older Than Stated Age - Head Exam Head Exam: ATRAUMATIC - Respiratory Exam Respiratory Exam: NORMAL BREATHING PATTERN - Cardiovascular Exam Cardiovascular Exam: REGULAR RHYTHM - GI/Abdominal Exam GI & Abdominal Exam: Normal Bowel Sounds, Soft - Rectal Exam Rectal Exam: Deferred - Extremities Exam Extremities exam: Positive for: normal inspection - Neurological Exam Neurological exam: Alert, Oriented x3 Results - Vital Signs Recent Vital Signs: Last Vital Signs Temp 97.7 F 11/09/18 12:31 Pulse 65 11/09/18 12:31 Resp 20 11/09/18 12:31 BP 112/74 11/09/18 12:31 Pulse Ox 93 L 11/09/18 12:31 - Labs Result Diagrams: 11/09/18 04:30 11/09/18 04:30 Labs: Laboratory Results - last 24 hr 11/08/18 11/08/18 11/08/18 17:07 17:07 19:10 WBC 3.7 L RBC 4.39 Hgb 11.8 L Hct 36.2 MCV 82.5 MCH 26.8 L MCHC 32.5 L RDW 19.8 H Plt Count 86 L D MPV 7.9 Neut % (Auto) 66.1 Lymph % (Auto) 25.3 [place] % (Auto) 5.2 Eos % (Auto) 2.5 Baso % (Auto) 0.9 Neut # (Auto) 2.5 Lymph # (Auto) 0.9 L [place] # (Auto) 0.2 Eos # (Auto) 0.1 Baso # (Auto) 0.0 Sodium 137 Potassium 4.9 Chloride 97 L Carbon Dioxide 27 Anion Gap 18 BUN 13 Creatinine 1.0 Est GFR ( Amer) > 60 Est GFR (Non-Af Amer) 59 POC Glucose (mg/dL) Random Glucose 252 H Calcium 8.7 Phosphorus 3.5 Magnesium 1.7 Total Bilirubin 1.3 AST 78 H D ALT 17 Alkaline Phosphatase 76 Troponin I 0.0210 NT-Pro-B Natriuret Pep 1570 H Total Protein 7.6 Albumin 3.6 Globulin 4.0 H Albumin/Globulin Ratio 0.9 L Lipase TSH 3rd Generation 4.35 Urine Color Yellow Urine Clarity Clear Urine pH 7.0 Ur Specific [place] 1.010 Urine Protein Negative Urine Glucose (UA) Neg Urine Ketones Negative Urine Blood Negative Urine Nitrate Negative Urine Bilirubin Negative Urine Urobilinogen 0.2-1.0 Ur Leukocyte Esterase Trace Urine RBC (Auto) 3 Urine Microscopic WBC 5 Ur Squamous Epith Cells 1 Urine Bacteria Rare Hepatitis A IgM Ab Hep Bs Antigen Hepatitis C Antibody 11/08/18 11/09/18 11/09/18 22:00 01:27 04:30 WBC 3.1 L RBC 4.11 Hgb 11.0 L Hct 34.1 MCV 82.9 MCH 26.8 L MCHC 32.4 L RDW 19.5 H Plt Count 86 L MPV 7.8 Neut % (Auto) 64.4 Lymph % (Auto) 27.4 [place] % (Auto) 5.1 Eos % (Auto) 2.8 Baso % (Auto) 0.3 Neut # (Auto) 2.0 Lymph # (Auto) 0.8 L [place] # (Auto) 0.2 Eos # (Auto) 0.1 Baso # (Auto) 0.0 Sodium Potassium Chloride Carbon Dioxide Anion Gap BUN Creatinine Est GFR ( Amer) Est GFR (Non-Af Amer) POC Glucose (mg/dL) 303 H Random Glucose Calcium Phosphorus Magnesium Total Bilirubin AST ALT Alkaline Phosphatase Troponin I NT-Pro-B Natriuret Pep Total Protein Albumin Globulin Albumin/Globulin Ratio Lipase 199 TSH 3rd Generation Urine Color Urine Clarity Urine pH Ur Specific [place] Urine Protein Urine Glucose (UA) Urine Ketones Urine Blood Urine Nitrate Urine Bilirubin Urine Urobilinogen Ur Leukocyte Esterase Urine RBC (Auto) Urine Microscopic WBC Ur Squamous Epith Cells Urine Bacteria Hepatitis A IgM Ab Hep Bs Antigen Hepatitis C Antibody 11/09/18 11/09/18 11/09/18 04:30 04:30 06:02 WBC RBC Hgb Hct MCV MCH MCHC RDW Plt Count MPV Neut % (Auto) Lymph % (Auto) [place] % (Auto) Eos % (Auto) Baso % (Auto) Neut # (Auto) Lymph # (Auto) [place] # (Auto) Eos # (Auto) Baso # (Auto) Sodium 138 Potassium 3.1 L Chloride 98 Carbon Dioxide 29 Anion Gap 14 BUN 12 Creatinine 1.0 Est GFR ( Amer) > 60 Est GFR (Non-Af Amer) 59 POC Glucose (mg/dL) 235 H Random Glucose 280 H Calcium 8.6 Phosphorus Magnesium Total Bilirubin 0.7 AST 49 H D ALT 26 Alkaline Phosphatase 80 Troponin I NT-Pro-B Natriuret Pep Total Protein 6.9 Albumin 3.2 L Globulin 3.7 Albumin/Globulin Ratio 0.9 L Lipase TSH 3rd Generation Urine Color Urine Clarity Urine pH Ur Specific [place] Urine Protein Urine Glucose (UA) Urine Ketones Urine Blood Urine Nitrate Urine Bilirubin Urine Urobilinogen Ur Leukocyte Esterase Urine RBC (Auto) Urine Microscopic WBC Ur Squamous Epith Cells Urine Bacteria Hepatitis A IgM Ab Negative Hep Bs Antigen Negative Hepatitis C Antibody Negative 11/09/18 11/09/18 11/09/18 08:20 09:10 10:55 WBC RBC Hgb Hct MCV MCH MCHC RDW Plt Count MPV Neut % (Auto) Lymph % (Auto) [place] % (Auto) Eos % (Auto) Baso % (Auto) Neut # (Auto) Lymph # (Auto) [place] # (Auto) Eos # (Auto) Baso # (Auto) Sodium Potassium Chloride Carbon Dioxide Anion Gap BUN Creatinine Est GFR ( Amer) Est GFR (Non-Af Amer) POC Glucose (mg/dL) 180 H Random Glucose Calcium Phosphorus Magnesium Total Bilirubin AST ALT Alkaline Phosphatase Troponin I 0.0150 NT-Pro-B Natriuret Pep Total Protein Albumin Globulin Albumin/Globulin Ratio Lipase TSH 3rd Generation Urine Color Yellow Urine Clarity Clear Urine pH 7.0 Ur Specific [place] 1.008 Urine Protein Negative Urine Glucose (UA) 50 Urine Ketones Negative Urine Blood Negative Urine Nitrate Negative Urine Bilirubin Negative Urine Urobilinogen 0.2-1.0 Ur Leukocyte Esterase Neg Urine RBC (Auto) 1 Urine Microscopic WBC 1 Ur Squamous Epith Cells < 1 Urine Bacteria Rare Hepatitis A IgM Ab Hep Bs Antigen Hepatitis C Antibody - Imaging and Cardiology CT scan - abdomen Additional comment: cirrhosis, splenomegaly, ascites Assessment & Plan (1) Cirrhosis Assessment and Plan: need to asses for HCC and portal vein patency Status: Acute (2) Portal hypertension Assessment and Plan: needs upper endoscopy to assess for varices Status: Acute (3) Thrombocytopenia Assessment and Plan: secondary to portal hypertension, no treatment indicated Status: Acute (4) DENNIS (nonalcoholic steatohepatitis) Assessment and Plan: Vitamin E 400 IU daily, assess and if possible reduce portal hypertension in order to improve safety for gastric sleeve Status: Acute - Assessment and Plan (Free Text) Assessment: Unfortunate 48 year old women with morbid obesity, multiple medical problems, now with DENNIS cirrhosis and portal hypertension. Her half-way options are limited, though if there is any possibility to help her, she should be be evaluated for bariatric surgery, such as a sleeve. However, given her portal hypertension, a sleeve will be challenging to perform safely. She should have a triple phase CT scan to fully assess her portal hypertension and rule out HCC. If she has significant varices, the challenge will be to reduce her portal hypertension, i.e. via TIPSS, such that a gastric sleeve would be safe. For her likely DENNIS, she can be started on Vitamin E 400 IU daily. Will inquire from Dr Acosta when was her last upper endoscopy, and were there any varices.
--- NOTE | 2018-11-09 19:26 | PQF ---
PROVIDER RESPONSE TEXT: Morbid Obesity BMI 53 REVIEWER QUERY TEXT: Clarification of Clinical Diagnostic Findings Please clarify if you are in agreement with the BMI: 53.2 ? OR: Disagree OR: Other explanation of clinical findings Listed in the EMR:BMI:53.2 5ft 1in 281lb 6.4 oz The patient's Clinical Indicators include: --- Query created by: Nancy Gil on 11/09/2018 11:54 AM Electronically signed by: Annalisa Varela MD 11/09/2018 7:22 PM
--- NOTE | 2018-11-09 19:26 | PQF ---
PROVIDER RESPONSE TEXT: DM type II , Insulin dependent REVIEWER QUERY TEXT: Conflicting Documentation Clarification Please clarify the following diagnosis: DM 1 versus DM 2 -- Other, please specify H and P: PMH: includes: IDDM 11 - ENDOCRINE/METABOLIC --Hx Diabetes Mellitus Type 1: Yes The patient's Clinical Indicators include: ---- Query created by: Nancy Gil on 11/09/2018 11:53 AM Electronically signed by: Annalisa Varela MD 11/09/2018 7:22 PM
--- NOTE | 2018-11-09 19:40 | CP.PCM.CON ---
History of Present Illness - History of Present Illness History of Present Illness: 48 yo female with diabetes and morbid obesity admitted with lower abdominal pain. Patient with h/o cirrhosis likely due to fatty liver.Also has h/o left adnexal lesion. Review of Systems - Constitutional Constitutional: absent: Chills - EENT Eyes: absent: Change in Vision Ears: absent: Ear Pain Nose/Mouth/Throat: absent: Epistaxis - Cardiovascular Cardiovascular: absent: Chest Pain - Respiratory Respiratory: absent: Dyspnea - Gastrointestinal Gastrointestinal: As Per HPI - Genitourinary Genitourinary: absent: Change in Urinary Stream Past Patient History - Infectious Disease Hx of Infectious Diseases: None - Past Medical History & Family History Past Medical History?: Yes - Past Social History Smoking Status: Never Smoked Alcohol: None Drugs: Denies Home Situation {Lives}: With Family - CARDIAC Hx Congestive Heart Failure: Yes Hx Heart Attack: Yes Hx Hypercholesterolemia: Yes Hx Hypertension: Yes Hx Peripheral Edema: Yes - PULMONARY Hx Asthma: Yes Hx Bronchitis: Yes Hx Pneumonia: Yes Hx Pulmonary Embolism: Yes Hx Sleep Apnea: Yes (use c-pap) - NEUROLOGICAL Hx Transient Ischemic Attacks (TIA): Yes (x2 2004/2015) - HEENT Hx HEENT Problems: Yes Hx Blind: Yes (right eye) - RENAL Hx Chronic Kidney Disease: No - ENDOCRINE/METABOLIC Hx Diabetes Mellitus Type 1: Yes Hx Diabetes Mellitus Type 2: Yes Hx Hypothyroidism: Yes - HEMATOLOGICAL/ONCOLOGICAL Hx AIDS: No Hx Anemia: Yes Hx Cancer: Yes (right eye) Hx Human Immunodeficiency Virus (HIV): No - INTEGUMENTARY Hx Dermatological Problems: Yes - MUSCULOSKELETAL/RHEUMATOLOGICAL Hx Arthritis: Yes Hx Falls: Yes Hx Fractures: Yes Hx Osteoporosis: No - GASTROINTESTINAL Hx Gastrointestinal Disorders: Yes Hx Gastroesophageal Reflux: Yes Hx Hemorrhoids: Yes Other/Comment: attempted lap band - GENITOURINARY/GYNECOLOGICAL Hx Genitourinary Disorders: No Hx Urinary Tract Infection: Yes - PSYCHIATRIC Hx Anxiety: Yes Hx Depression: Yes Hx Substance Use: No - SURGICAL HISTORY Hx Appendectomy: No Hx Cholecystectomy: No Hx Coronary Stent: Yes (x4) Hx Tonsillectomy: Yes - ANESTHESIA Hx Anesthesia: Yes Hx Anesthesia Reactions: Yes (takes pre-meds prior to anesthesia) Meds Allergies/Adverse Reactions: Allergies Allergy/AdvReac Type Severity Reaction Status Date / Time amlodipine [From Norvasc] Allergy RASH Verified 10/20/18 08:13 ciprofloxacin [From Cipro] Allergy NAUSEA Verified 10/20/18 08:13 codeine Allergy FATIGUE Verified 10/20/18 08:13 Iodinated Contrast- Oral and Allergy RASH Verified 10/20/18 08:13 IV Dye kiwi Allergy RASH Verified 10/20/18 08:13 mustard Allergy RASH Verified 10/20/18 08:13 Penicillins Allergy ANAPHYLAXIS Verified 10/20/18 08:13 pepper (genus Capsicum) Allergy RASH Verified 10/20/18 08:13 [pepper] Sulfa (Sulfonamide Allergy RASH Verified 10/20/18 08:13 Antibiotics) tomato Allergy RASH Verified 10/20/18 08:13 metoclopramide HCl AdvReac DIZZINESS Verified 10/20/18 08:13 [From Reglan] filberts Allergy SWELLING Uncoded 10/20/18 08:13 IV CONTRAST Allergy RASH Uncoded 10/20/18 08:13 - Medications Medications: Current Medications Allopurinol (Zyloprim) 300 mg PO DAILY [facility] Last Admin: 11/09/18 09:53 Dose: 300 mg Alprazolam (Xanax) 0.25 mg PO HS PRN PRN Reason: Anxiety Stop: 11/15/18 22:17 Last Admin: 11/09/18 02:23 Dose: 0.25 mg Clonidine HCl (Catapres) 0.2 mg PO BID [facility] Last Admin: 11/09/18 17:15 Dose: 0.2 mg Clopidogrel Bisulfate (Plavix) 75 mg PO DAILY [facility] Last Admin: 11/09/18 09:52 Dose: 75 mg Dextrose (Dextrose 50% Inj) 0 ml IV STAT PRN; Protocol PRN Reason: Hypoglycemia Protocol Dextrose (Glutose 15) 0 gm PO ONCE PRN; Protocol PRN Reason: Hypoglycemia Protocol Enoxaparin Sodium (Lovenox) 40 mg SC DAILY [facility]; Protocol Last Admin: 11/09/18 10:01 Dose: Not Given Ergocalciferol (Drisdol 50,000 Intl Units Cap) 1 cap PO TH [facility] Furosemide (Lasix) 40 mg IVP BID [facility] Last Admin: 11/09/18 17:24 Dose: 40 mg Glucagon (Glucagen Diagnostic Kit) 0 mg IM STAT PRN; Protocol PRN Reason: Hypoglycemia Protocol Insulin Detemir (Levemir) 20 units SC QAM [facility] Last Admin: 11/09/18 10:24 Dose: Not Given Insulin Detemir (Levemir) 30 units SC HS [facility] Insulin Human Lispro (Humalog) 24 units SC AC [facility] Last Admin: 11/09/18 17:23 Dose: 24 unit Insulin Human Lispro (Humalog) 0 units SC ACHS [facility] Last Admin: 11/09/18 17:21 Dose: Not Given Levothyroxine Sodium (Synthroid) 200 mcg PO DAILY@0630 [facility] Last Admin: 11/09/18 06:27 Dose: 200 mcg Metoprolol Succinate (Toprol Xl) 100 mg PO DAILY [facility] Last Admin: 11/09/18 09:53 Dose: 100 mg Montelukast Sodium (Singulair) 10 mg PO [facility] Nystatin (Nystop Topical Powder) 1 applic TOP BID [facility] Last Admin: 11/09/18 17:26 Dose: Not Given Pantoprazole Sodium (Protonix Ec Tab) 40 mg PO DAILY [facility] Last Admin: 11/09/18 09:52 Dose: 40 mg Potassium Chloride (K-Dur 20 Meq Er Tab) 40 meq PO BID [facility] Last Admin: 11/09/18 17:21 Dose: 40 meq Ranolazine (Ranexa) 500 mg PO BID [facility] Last Admin: 11/09/18 17:26 Dose: 500 mg Physical Exam - Constitutional Appears: No Acute Distress - Head Exam Head Exam: ATRAUMATIC - Eye Exam Eye Exam: Normal appearance - ENT Exam ENT Exam: Normal Exam - Neck Exam Neck exam: Positive for: Normal Inspection - Respiratory Exam Respiratory Exam: Clear to Auscultation Bilateral - Cardiovascular Exam Cardiovascular Exam: REGULAR RHYTHM, +S1, +S2 - GI/Abdominal Exam GI & Abdominal Exam: Normal Bowel Sounds, Soft, Tenderness Additional comments: LLQ tenderness Results - Vital Signs Recent Vital Signs: Last Vital Signs Temp 98.1 F 11/09/18 16:00 Pulse 63 11/09/18 17:15 Resp 16 11/09/18 16:00 BP 134/79 11/09/18 17:24 Pulse Ox 92 L 11/09/18 16:00 - Labs Result Diagrams: 11/09/18 04:30 11/09/18 04:30 Labs: Laboratory Results - last 24 hr 11/08/18 11/08/18 11/09/18 19:10 22:00 01:27 WBC RBC Hgb Hct MCV MCH MCHC RDW Plt Count MPV Neut % (Auto) Lymph % (Auto) [place] % (Auto) Eos % (Auto) Baso % (Auto) Neut # (Auto) Lymph # (Auto) [place] # (Auto) Eos # (Auto) Baso # (Auto) Sodium Potassium Chloride Carbon Dioxide Anion Gap BUN Creatinine Est GFR ( Amer) Est GFR (Non-Af Amer) POC Glucose (mg/dL) 303 H Random Glucose Calcium Total Bilirubin AST ALT Alkaline Phosphatase Troponin I Total Protein Albumin Globulin Albumin/Globulin Ratio Lipase 199 Urine Color Yellow Urine Clarity Clear Urine pH 7.0 Ur Specific [place] 1.010 Urine Protein Negative Urine Glucose (UA) Neg Urine Ketones Negative Urine Blood Negative Urine Nitrate Negative Urine Bilirubin Negative Urine Urobilinogen 0.2-1.0 Ur Leukocyte Esterase Trace Urine RBC (Auto) 3 Urine Microscopic WBC 5 Ur Squamous Epith Cells 1 Urine Bacteria Rare Hepatitis A IgM Ab Hep Bs Antigen Hepatitis C Antibody 11/09/18 11/09/18 11/09/18 04:30 04:30 04:30 WBC 3.1 L RBC 4.11 Hgb 11.0 L Hct 34.1 MCV 82.9 MCH 26.8 L MCHC 32.4 L RDW 19.5 H Plt Count 86 L MPV 7.8 Neut % (Auto) 64.4 Lymph % (Auto) 27.4 [place] % (Auto) 5.1 Eos % (Auto) 2.8 Baso % (Auto) 0.3 Neut # (Auto) 2.0 Lymph # (Auto) 0.8 L [place] # (Auto) 0.2 Eos # (Auto) 0.1 Baso # (Auto) 0.0 Sodium 138 Potassium 3.1 L Chloride 98 Carbon Dioxide 29 Anion Gap 14 BUN 12 Creatinine 1.0 Est GFR ( Amer) > 60 Est GFR (Non-Af Amer) 59 POC Glucose (mg/dL) Random Glucose 280 H Calcium 8.6 Total Bilirubin 0.7 AST 49 H D ALT 26 Alkaline Phosphatase 80 Troponin I Total Protein 6.9 Albumin 3.2 L Globulin 3.7 Albumin/Globulin Ratio 0.9 L Lipase Urine Color Urine Clarity Urine pH Ur Specific [place] Urine Protein Urine Glucose (UA) Urine Ketones Urine Blood Urine Nitrate Urine Bilirubin Urine Urobilinogen Ur Leukocyte Esterase Urine RBC (Auto) Urine Microscopic WBC Ur Squamous Epith Cells Urine Bacteria Hepatitis A IgM Ab Negative Hep Bs Antigen Negative Hepatitis C Antibody Negative 11/09/18 11/09/18 11/09/18 06:02 08:20 09:10 WBC RBC Hgb Hct MCV MCH MCHC RDW Plt Count MPV Neut % (Auto) Lymph % (Auto) [place] % (Auto) Eos % (Auto) Baso % (Auto) Neut # (Auto) Lymph # (Auto) [place] # (Auto) Eos # (Auto) Baso # (Auto) Sodium Potassium Chloride Carbon Dioxide Anion Gap BUN Creatinine Est GFR ( Amer) Est GFR (Non-Af Amer) POC Glucose (mg/dL) 235 H Random Glucose Calcium Total Bilirubin AST ALT Alkaline Phosphatase Troponin I 0.0150 Total Protein Albumin Globulin Albumin/Globulin Ratio Lipase Urine Color Yellow Urine Clarity Clear Urine pH 7.0 Ur Specific [place] 1.008 Urine Protein Negative Urine Glucose (UA) 50 Urine Ketones Negative Urine Blood Negative Urine Nitrate Negative Urine Bilirubin Negative Urine Urobilinogen 0.2-1.0 Ur Leukocyte Esterase Neg Urine RBC (Auto) 1 Urine Microscopic WBC 1 Ur Squamous Epith Cells < 1 Urine Bacteria Rare Hepatitis A IgM Ab Hep Bs Antigen Hepatitis C Antibody 11/09/18 11/09/18 10:55 16:19 WBC RBC Hgb Hct MCV MCH MCHC RDW Plt Count MPV Neut % (Auto) Lymph % (Auto) [place] % (Auto) Eos % (Auto) Baso % (Auto) Neut # (Auto) Lymph # (Auto) [place] # (Auto) Eos # (Auto) Baso # (Auto) Sodium Potassium Chloride Carbon Dioxide Anion Gap BUN Creatinine Est GFR ( Amer) Est GFR (Non-Af Amer) POC Glucose (mg/dL) 180 H 266 H Random Glucose Calcium Total Bilirubin AST ALT Alkaline Phosphatase Troponin I Total Protein Albumin Globulin Albumin/Globulin Ratio Lipase Urine Color Urine Clarity Urine pH Ur Specific [place] Urine Protein Urine Glucose (UA) Urine Ketones Urine Blood Urine Nitrate Urine Bilirubin Urine Urobilinogen Ur Leukocyte Esterase Urine RBC (Auto) Urine Microscopic WBC Ur Squamous Epith Cells Urine Bacteria Hepatitis A IgM Ab Hep Bs Antigen Hepatitis C Antibody Assessment & Plan (1) Abdominal pain Assessment and Plan: Patient with chronic cirrhosis as a result of morbid obesity. GB wall thickness likely edema rather than cholecystitis. Cause of LLQ pain unclear. No evidence of colitis or GI mass. Status: Acute
--- NOTE | 2018-11-09 20:45 | CON ---
DATE: 11/09/2018 ENDOCRINOLOGY CONSULT LOCATION: Room 410. HISTORY OF PRESENT ILLNESS: This is a 48-year-old female with known history of type 1 insulin-dependent diabetes with suboptimal metabolic control and A1c is always above 11-12% despite a very hefty insulin dose regimen, presenting here with progressive shortness of breath and supervening upper abdominal pain and has been evaluated to be in congestive heart failure and is being referred now for diabetic evaluation and management. PAST MEDICAL HISTORY: History of type 1 insulin-dependent diabetes, on a combination of Levemir given at a hefty dose of 40 units b.i.d. and Humalog given at a hefty dose also of 40-50 units t.i.d. before meals, she is also on metformin given as 500 mg b.i.d. History of hypothyroidism, on levothyroxine replacement therapy at a dose of 200 mcg daily. History of generalized anxiety and depression, on psychotropic medications. History of chronic obstructive lung disease, on bronchodilator and Singulair therapy. History of coronary artery disease with previous admissions for congestive heart failure, she also has prior coronary stent placement about four stents in the last 10 years or so prior to admission. History of cerebrovascular disease with prior TIA with no residual weakness. History of super morbid obesity with obstructive sleep apnea. She also has prior history of pulmonary embolism with underlying vein thrombosis. History of diabetic gastroparesis with episodic bouts of nausea, dyspepsia and vomiting episodes. History of chronic gastritis and GERD. History of hypertension and dyslipidemia. History of generalized osteoarthritis and underlying osteoporosis. History of chronic iron-deficiency anemia and has been receiving IV infusions almost on a weekly to bimonthly basis with Dr. 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 FAMILY HISTORY: Positive for diabetes and hypertension. SOCIAL HISTORY: The patient is a former smoker, has supportive and family otherwise, no other known substance use. REVIEW OF SYSTEMS: As mentioned above. Admits to generalized body weakness with progressive bouts of dizziness and lightheadedness, worse on the day of admission. Also admits to episodic bifrontal headaches with visual blurring in the left eye. No chest pains or palpitations but admits to progressive shortness of breath initially on exertion and then at rest with paroxysmal nocturnal dyspnea. Her oral intake has been variable with nausea, dyspepsia and episodic vomiting episodes. Also admits to marked polyuria, nocturia and polydipsia. Moreover, admits to lower extremity edema worse in the last few days prior to admission. PHYSICAL EXAMINATION: GENERAL: This is a morbidly obese female, in no apparent distress. VITAL SIGNS: Blood pressure of 150/90, pulse of 100 beats per minute and regular, temperature 98, respirations 20, height is 5 feet 1 inch, weight is 281 pounds. HEENT: Head; normocephalic. Eyes; anicteric with pink conjunctivae. Funduscopy not possible at this time. Ears, Nose, and Throat: Otherwise normal. NECK: Supple. Thyroid gland shows nodular thyromegaly, which is firm and nontender. No thyroid bruits or palpable thyroid nodules. HEART: Hyperdynamic precordium. S1, S2, rapid and regular. LUNGS: Scattered rhonchi and bibasilar dullness. ABDOMEN: Obese, soft with positive bowel sounds. EXTREMITIES: There is +2 bipedal edema. Pulses are +2 bilaterally. LABORATORY DATA: Chemistry showed a BUN of 12, sodium 138, potassium 3.1, chloride 98, CO2 of 29, glucose 280, creatinine 1. Her glucose levels have ranged from 235 to 303 mg/dL. Her CAT scan of the abdomen showed advanced cirrhosis with findings suggestive of portal hypertension with ascites and splenomegaly. There is also a 5.8 complex cystic mass in the left adnexa. ASSESSMENT: This is a 48-year-old female with uncontrolled and decompensated type 1 insulin-dependent diabetes with marked hyperglycemic accelerations and suboptimal metabolic control with also underlying tremendous insulin resistance with underlying morbid obesity, presenting here with congestive heart failure on the background of significant cardiac vasculopathy as noted and mentioned. She also has diabetic microvascular complications of retinopathy and polyneuropathy and diabetic macrovascular complications of cerebrovascular disease, coronary artery disease with previous coronary artery stent placements and peripheral vasculopathy as noted. There is also underlying advanced cirrhosis as noted from the CAT scan of the abdomen, and because of her underlying super morbid obesity and expected super fatty liver, I would not be surprised if the patient would have evolved to develop hepatic steatosis or the so-called DENNIS or nonalcoholic steatohepatitis which could have led to cirrhosis as noted above. PLAN OF MANAGEMENT: We will modify her current insulin regimen and switch her over to a more physiologic basal and bolus insulin drug combination as ordered. We will continue the Levemir given as 20 units subcu every 09:00 a.m. daily and add basal insulin with Levemir given as 30 units subcu at bedtime daily to start tonight. We will add Humalog given as 24 units subcu t.i.d. before meals to start today as ordered. We will modify the coverage scale to obviate hypoglycemia and detailed orders been given. Hemoglobin A1c will be done to confirm her prior glycemic control and baseline thyroid function studies will be ordered and we will titrate her dose regimen accordingly. We will follow and advise accordingly. Elizabeth Marte MD
[2018-11-09] MEDS ORDERED: Insulin Detemir 100 Units/ml Inj SC SCH (22:00)
[2018-11-10 05:30] LABS: BASO # 0.1 K/uL (0.0-0.2); BASO % 2.1 % (0.0-2.0); EOS # 0.1 K/uL (0.0-0.7); EOS % 4.1 % (0.0-4.0); HEMOGLOBIN 10.3 g/dL (12.0-16.0); LYMPH # 0.9 K/uL (1.0-4.3); LYMPH % 32.5 % (20.0-40.0); MEAN CELL VOLUME 83.9 fl (81.0-99.0); MEAN CORPUSCULAR HEMOGLOBIN 27.3 pg (27.0-31.0); MEAN CORPUSCULAR HGB CONC 32.6 g/dL (33.0-37.0); MEAN PLATELET VOLUME 7.7 fl (7.2-11.7); MONO # 0.2 K/uL (0.0-0.8); MONO % 7.7 % (0.0-10.0); NEUT # 1.4 K/uL (1.8-7.0); NEUT % 53.6 % (50.0-75.0); NRBC % 0.3 % (0.0-0.0); RBC 3.78 Mil/uL (3.80-5.20); RED CELL DISTRIBUTION WIDTH 20.6 % (11.5-14.5); WHITE BLOOD COUNT 2.7 K/uL (4.8-10.8)
[2018-11-10 05:45] LABS: ALB/GLOB RATIO 0.8 (1.0-2.1); ALBUMIN 2.8 g/dL (3.5-5.0); CALCIUM 8.3 mg/dL (8.4-10.2)
[2018-11-10 05:47] LABS: T4 6.81 ug/dl (5.5-11.0)
[2018-11-10] MEDS: Levothyroxine 200 MCG TAB PO SCH (06:02)
[2018-11-10] MEDS: Insulin Lispro (humaLOG) 100 Units/ml Inj SC SCH ×6 (08:42→18:06)
[2018-11-10] MEDS: Potassium Chloride 20 mEq ER Tab PO SCH ×2 (08:44→18:06)
[2018-11-10] MEDS: Insulin Detemir 100 Units/ml Inj SC SCH (08:47)
[2018-11-10] MEDS: Enoxaparin 40 mg Syringe SC SCH (08:50)
[2018-11-10] MEDS: Ranolazine 500 mg Extended Release Tablets PO SCH ×2 (08:51→18:06)
[2018-11-10] MEDS: Pantoprazole 40 mg EC Tab PO SCH (08:51)
[2018-11-10] MEDS: Metoprolol Succinate 100 mg XL Tab PO SCH (08:51)
--- NOTE | 2018-11-10 09:00 | CP.PCM.PN ---
Subjective - Date & Time of Evaluation Date of Evaluation: 11/10/18 Time of Evaluation: 09:00 - Subjective Subjective: Seen on morning rounds. Interim events and EMR entries noted. Patient states she is feeling improved, though some overnight sleep disturbance present. Vital signs remain stable, albeit hypertensive. Neutropenic, anemic, thrombocytopenic. Asthma remains stable, MARYA symptomatic, needs to resume nCPAP. Liver cirrhosis, hypersplenism, morbid obesity and CAD. Multiple significant comorbid illnesses and complex medical management. Will continue to have [place] followup and probable EGD for evaluation of varices. 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 Objective - Vital Signs/Intake and Output Vital Signs (last 24 hours): Temp Pulse Resp BP Pulse Ox 97.5 F L 66 18 188/82 H 97 11/10/18 08:07 11/10/18 08:51 11/10/18 08:07 11/10/18 08:51 11/10/18 08:07 Intake and Output: 11/09/18 11/10/18 23:59 11:59 Output Total 550 Balance -550 - Medications Medications: Current Medications Allopurinol (Zyloprim) 300 mg PO DAILY [facility] Last Admin: 11/10/18 08:52 Dose: 300 mg Alprazolam (Xanax) 0.25 mg PO HS PRN PRN Reason: Anxiety Stop: 11/15/18 22:17 Last Admin: 11/09/18 22:35 Dose: 0.25 mg Clonidine HCl (Catapres) 0.2 mg PO BID [facility] Last Admin: 11/10/18 08:42 Dose: 0.2 mg Clopidogrel Bisulfate (Plavix) 75 mg PO DAILY [facility] Last Admin: 11/10/18 08:50 Dose: 75 mg Dextrose (Dextrose 50% Inj) 0 ml IV STAT PRN; Protocol PRN Reason: Hypoglycemia Protocol Dextrose (Glutose 15) 0 gm PO ONCE PRN; Protocol PRN Reason: Hypoglycemia Protocol Enoxaparin Sodium (Lovenox) 40 mg SC DAILY [facility]; Protocol Last Admin: 11/10/18 08:50 Dose: Not Given Ergocalciferol (Drisdol 50,000 Intl Units Cap) 1 cap PO TH [facility] Furosemide (Lasix) 20 mg IVP BID [facility] Last Admin: 11/10/18 08:45 Dose: 20 mg Glucagon (Glucagen Diagnostic Kit) 0 mg IM STAT PRN; Protocol PRN Reason: Hypoglycemia Protocol Insulin Detemir (Levemir) 20 units SC Q12 [facility] Last Admin: 11/10/18 08:47 Dose: 20 units Insulin Human Lispro (Humalog) 24 units SC AC [facility] Last Admin: 11/10/18 08:42 Dose: 24 unit Insulin Human Lispro (Humalog) 0 units SC ACHS [facility] Last Admin: 11/10/18 08:44 Dose: Not Given Levothyroxine Sodium (Synthroid) 200 mcg PO DAILY@0630 [facility] Last Admin: 11/10/18 06:02 Dose: 200 mcg Metoprolol Succinate (Toprol Xl) 100 mg PO DAILY [facility] Last Admin: 11/10/18 08:51 Dose: 100 mg Montelukast Sodium (Singulair) 10 mg PO HS [facility] Last Admin: 11/09/18 22:25 Dose: 10 mg Nystatin (Nystop Topical Powder) 1 applic TOP BID [facility] Last Admin: 11/10/18 08:49 Dose: Not Given Pantoprazole Sodium (Protonix Ec Tab) 40 mg PO DAILY [facility] Last Admin: 11/10/18 08:51 Dose: 40 mg Potassium Chloride (K-Dur 20 Meq Er Tab) 40 meq PO BID [facility] Last Admin: 11/10/18 08:44 Dose: 40 meq Ranolazine (Ranexa) 500 mg PO BID [facility] Last Admin: 11/10/18 08:51 Dose: 500 mg - Labs Labs: 11/10/18 05:00 11/10/18 05:00 Assessment and Plan (1) Asthma Status: Chronic (2) Morbid exogenous obesity Status: Chronic (3) Obesity hypoventilation syndrome Status: Chronic (4) Obstructive sleep apnea (adult) (pediatric) Status: Chronic
--- NOTE | 2018-11-10 10:05 | CP.PCM.PN ---
Subjective - Date & Time of Evaluation Date of Evaluation: 11/10/18 Time of Evaluation: 09:30 - Subjective Subjective: Patient seen and examined this morning. No acute overnight events Elevated BP otherwise stable vitals, saturating well 97% on 2 L Oxygen. Patient reports she could not sleep well and felt shortness of breath last night due to not having her CPAP machine. States cough and abdominal pain improved. Denies any chest pain, nausea, vomiting, fever, headache, dizziness or focal weakness. Objective - Vital Signs/Intake and Output Vital Signs (last 24 hours): Temp Pulse Resp BP Pulse Ox 97.5 F L 66 18 188/82 H 97 11/10/18 08:07 11/10/18 08:51 11/10/18 08:07 11/10/18 08:51 11/10/18 08:07 Intake and Output: 11/10/18 11/10/18 06:59 18:59 Output Total 550 Balance -550 - Medications Medications: Current Medications Allopurinol (Zyloprim) 300 mg PO DAILY [facility] Last Admin: 11/10/18 08:52 Dose: 300 mg Alprazolam (Xanax) 0.25 mg PO HS PRN PRN Reason: Anxiety Stop: 11/15/18 22:17 Last Admin: 11/09/18 22:35 Dose: 0.25 mg Clonidine HCl (Catapres) 0.2 mg PO BID [facility] Clopidogrel Bisulfate (Plavix) 75 mg PO DAILY [facility] Last Admin: 11/10/18 08:50 Dose: 75 mg Dextrose (Dextrose 50% Inj) 0 ml IV STAT PRN; Protocol PRN Reason: Hypoglycemia Protocol Dextrose (Glutose 15) 0 gm PO ONCE PRN; Protocol PRN Reason: Hypoglycemia Protocol Enoxaparin Sodium (Lovenox) 40 mg SC DAILY [facility]; Protocol Last Admin: 11/10/18 08:50 Dose: Not Given Ergocalciferol (Drisdol 50,000 Intl Units Cap) 1 cap PO TH [facility] Furosemide (Lasix) 40 mg IVP DAILY [facility] Glucagon (Glucagen Diagnostic Kit) 0 mg IM STAT PRN; Protocol PRN Reason: Hypoglycemia Protocol Insulin Detemir (Levemir) 20 units SC Q12 [facility] Last Admin: 11/10/18 08:47 Dose: 20 units Insulin Human Lispro (Humalog) 24 units SC AC [facility] Last Admin: 11/10/18 08:42 Dose: 24 unit Insulin Human Lispro (Humalog) 0 units SC ACHS [facility] Last Admin: 11/10/18 08:44 Dose: Not Given Levothyroxine Sodium (Synthroid) 200 mcg PO DAILY@0630 [facility] Last Admin: 11/10/18 06:02 Dose: 200 mcg Metoprolol Succinate (Toprol Xl) 100 mg PO DAILY [facility] Last Admin: 11/10/18 08:51 Dose: 100 mg Montelukast Sodium (Singulair) 10 mg PO HS [facility] Last Admin: 11/09/18 22:25 Dose: 10 mg Nystatin (Nystop Topical Powder) 1 applic TOP BID [facility] Last Admin: 11/10/18 08:49 Dose: Not Given Pantoprazole Sodium (Protonix Ec Tab) 40 mg PO DAILY [facility] Last Admin: 11/10/18 08:51 Dose: 40 mg Potassium Chloride (K-Dur 20 Meq Er Tab) 40 meq PO BID [facility] Last Admin: 11/10/18 08:44 Dose: 40 meq Ranolazine (Ranexa) 500 mg PO BID [facility] Last Admin: 11/10/18 08:51 Dose: 500 mg - Labs Labs: 11/10/18 05:00 11/10/18 05:00 - Constitutional Appears: No Acute Distress, Older Than Stated Age, Other (morbidly obese) - Head Exam Head Exam: NORMAL INSPECTION - Eye Exam Additional comments: Eye patch over right eye - ENT Exam ENT Exam: Mucous Membranes Moist - Neck Exam Neck Exam: Full ROM, Normal Inspection - Respiratory Exam Respiratory Exam: NORMAL BREATHING PATTERN. absent: Accessory Muscle Use, Rhon chi, Wheezes, Respiratory Distress Additional comments: Crackles on right lung base. NO wheezing. - Cardiovascular Exam Cardiovascular Exam: REGULAR RHYTHM, +S1, +S2 - GI/Abdominal Exam GI & Abdominal Exam: Soft, Normal Bowel Sounds. absent: Tenderness Additional comments: morbidly obese with extensively large abdominal girth - Extremities Exam Extremities Exam: Normal Capillary Refill, Pedal Edema (1+). absent: Calf Tenderness - Neurological Exam Neurological Exam: Alert, Awake, Oriented x3 - Psychiatric Exam Psychiatric exam: Normal Affect, Normal Mood - Skin Skin Exam: Dry, Normal Color Assessment and Plan - Assessment and Plan (Free Text) Assessment: 48 yo F with history of right eye blindness, TIA, CAD, IDDM II with diabetic ne uropathy, hypertension, anemia, gout, anxiety, and environmental allergies with possible CHF exacerbation and liver cirrhosis. Plan: Shortness of Breath likely secondary to CHF exacerbation -Improved -proBNP 1570 -d/c Lasix 40 mg IVP BID -start lasix 40 mg IVP QD -Echo on 11/08/18: EF 55-60%. Left atrium is mild to moderately dilated. There is no tricuspid valve regurgitation noted. Chronic liver cirrhosis: -Abdominal pain improved -Abdominal US: IMPRESSION: 1. No cholelithiasis. Severe diffuse wall gallbladder wall thickening which is nonspecific and could be related to underdistention, gallbladder edema or thickening related to secondary etiologies. 2. Mild hepatomegaly. Diffuse increased echogenicity in the liver may reflect hepatic steatosis however parenchymal infectious/ inflammatory etiologies cannot be entirely excluded. Clinical and laboratory correlation is advised. 3. Small abdominal ascites. -GI consult - Dr. Acosta, recs appreciated. -Hem/onc consult--Dr. Kincaid, recs appreciated. -Hepatobiliary surgeon, Dr. Fan, recs appreciated. Acute Kidney injury: -BUN 14/1.4 with GFR 40 -d/c lasix 40 ivp bid -start lasix 40 IVP qd -f/u BMP Adnexal Cyst - TVUS: limited exam due to body habitus. - PROFILE SAW SETUP OPERATOR eval: patient declined outside machinist supervisor eval in hospital. She will f/u outpatient. Hypertension -NOT controlled during night, however stable during day -Consider TANNER/ARB if renal function returns to baseline -Resume home meds clonidine, metoprolol succinate. MARYA -Advised to bring CPAP machine from home CAD - Resume home meds for BP control and Ranexa IDDM - Resume insulin; hold metformin for now - Insulin coverage scale; hypoglycemia protocol Hypothyroidism - Resume levothyroxine 200 mcg daily History of TIA - Resume plavix Anxiety - Home med xanax 0.25 mg HS PRN ordered Anemia - Asymptomatic; Hgb 11.8 - F/u CBC Gout - Resume home med allopurinol Allergies - Resume home med montelukast Diet - Consistent Carb/Heart Healthy - Protonix for GI prophylaxis DVT prophylaxis - Lovenox Plan discussed with Dr. Phillip
--- NOTE | 2018-11-10 13:09 | CP.PCM.PN ---
Subjective - Date & Time of Evaluation Date of Evaluation: 11/10/18 Time of Evaluation: 13:03 - Subjective Subjective: Pt c/o left lower quadrant pain. . but cannot take tylenol because of her liver cirrhosis. Will give her one dose of toradol 15 cc, . She is allergic to opioids and and cannot take aspirin because of the variices She was seen by the gas mask assembler Dr Moya, and his note was appreciated. She will have an endoscopy to evaluate the varices and possibly cap them In the meanwhile she continues to be pancytopenic secondary to te hypersplenism. She does want to see a FARM CREW LEADER specialist at this time. Will ck her Ca125. Objective - Vital Signs/Intake and Output Vital Signs (last 24 hours): Temp Pulse Resp BP Pulse Ox 97.6 F 62 18 122/68 95 11/10/18 12:12 11/10/18 12:12 11/10/18 12:12 11/10/18 12:12 11/10/18 12:12 Intake and Output: 11/10/18 11/10/18 06:59 18:59 Output Total 550 Balance -550 - Medications Medications: Current Medications Allopurinol (Zyloprim) 300 mg PO DAILY [facility] Last Admin: 11/10/18 08:52 Dose: 300 mg Alprazolam (Xanax) 0.25 mg PO HS PRN PRN Reason: Anxiety Stop: 11/15/18 22:17 Last Admin: 11/09/18 22:35 Dose: 0.25 mg Clonidine HCl (Catapres) 0.2 mg PO BID [facility] Clopidogrel Bisulfate (Plavix) 75 mg PO DAILY [facility] Last Admin: 11/10/18 08:50 Dose: 75 mg Dextrose (Dextrose 50% Inj) 0 ml IV STAT PRN; Protocol PRN Reason: Hypoglycemia Protocol Dextrose (Glutose 15) 0 gm PO ONCE PRN; Protocol PRN Reason: Hypoglycemia Protocol Enoxaparin Sodium (Lovenox) 40 mg SC DAILY [facility]; Protocol Last Admin: 11/10/18 08:50 Dose: Not Given Ergocalciferol (Drisdol 50,000 Intl Units Cap) 1 cap PO TH [facility] Furosemide (Lasix) 40 mg IVP DAILY [facility] Last Admin: 11/10/18 10:44 Dose: Not Given Glucagon (Glucagen Diagnostic Kit) 0 mg IM STAT PRN; Protocol PRN Reason: Hypoglycemia Protocol Insulin Detemir (Levemir) 20 units SC Q12 [facility] Last Admin: 11/10/18 08:47 Dose: 20 units Insulin Human Lispro (Humalog) 24 units SC AC [facility] Last Admin: 11/10/18 13:01 Dose: 24 unit Insulin Human Lispro (Humalog) 0 units SC ACHS [facility] Last Admin: 11/10/18 13:00 Dose: Not Given Levothyroxine Sodium (Synthroid) 200 mcg PO DAILY@0630 [facility] Last Admin: 11/10/18 06:02 Dose: 200 mcg Metoprolol Succinate (Toprol Xl) 100 mg PO DAILY [facility] Last Admin: 11/10/18 08:51 Dose: 100 mg Montelukast Sodium (Singulair) 10 mg PO HS [facility] Last Admin: 11/09/18 22:25 Dose: 10 mg Nystatin (Nystop Topical Powder) 1 applic TOP BID [facility] Last Admin: 11/10/18 08:49 Dose: Not Given Pantoprazole Sodium (Protonix Ec Tab) 40 mg PO DAILY [facility] Last Admin: 11/10/18 08:51 Dose: 40 mg Potassium Chloride (K-Dur 20 Meq Er Tab) 40 meq PO BID [facility] Last Admin: 11/10/18 08:44 Dose: 40 meq Ranolazine (Ranexa) 500 mg PO BID [facility] Last Admin: 11/10/18 08:51 Dose: 500 mg - Labs Labs: 11/10/18 05:00 11/10/18 05:00
--- NOTE | 2018-11-10 15:28 | CP.PCM.DIS ---
Provider - Provider Date of Admission: 11/08/18 21:05 Attending physician: Juan Carlos Corey MD Consults: 11/09/18 02:12 Gastroenterology Consult Routine Comment: abd pain, + cirrhosis on CT Consulting Provider: Surinder Acosta Consulting Physician: Surinder Acosta Reason for Consult: abd pain, + cirrhosis on CT 11/09/18 07:30 Physician Consult Routine Comment: Consulting Provider: Hector Granados Consulting Physician: Hector Granados Reason for Consult: consult 11/09/18 07:36 Hematology Oncology Consult Routine Comment: Consulting Provider: Kylie Kincaid Consulting Physician: Kylie Kincaid Reason for Consult: anemia, new findings on liver cirrhosis 11/09/18 11:11 Endocrinology Consult Routine Comment: Consulting Provider: Elizabeth Marte Consulting Physician: Elizabeth Marte Reason for Consult: insulin dependant diabetic Time Spent in preparation of Discharge (in minutes): 30 Diagnosis - Discharge Diagnosis (1) Heart failure with preserved ejection fraction Status: Resolved (2) Acute renal injury Status: Acute (3) Abdominal pain Status: Resolved (4) CHF exacerbation Status: Resolved (5) Cirrhosis Status: Chronic (6) Dyspnea Status: Resolved (7) DENNIS (nonalcoholic steatohepatitis) Status: Chronic (8) Portal hypertension Status: Chronic (9) Thrombocytopenia Status: Chronic (10) Morbid obesity Status: Chronic Priority: High (11) Anemia Status: Chronic Priority: High (12) Obstructive sleep apnea on CPAP Status: Chronic (13) Asthma Status: Chronic Priority: High Hospital Course - Lab Results Lab Results: Most Recent Lab Values WBC 2.7 K/uL (4.8-10.8) L 11/10/18 05:00 RBC 3.78 Mil/uL (3.80-5.20) L 11/10/18 05:00 Hgb 10.3 g/dL (12.0-16.0) L 11/10/18 05:00 Hct 31.7 % (34.0-47.0) L 11/10/18 05:00 MCV 83.9 fl (81.0-99.0) 11/10/18 05:00 MCH 27.3 pg (27.0-31.0) 11/10/18 05:00 MCHC 32.6 g/dL (33.0-37.0) L 11/10/18 05:00 RDW 20.6 % (11.5-14.5) H 11/10/18 05:00 Plt Count 85 K/uL (130-400) L 11/10/18 05:00 MPV 7.7 fl (7.2-11.7) 11/10/18 05:00 Neut % (Auto) 53.6 % (50.0-75.0) 11/10/18 05:00 Lymph % (Auto) 32.5 % (20.0-40.0) 11/10/18 05:00 Greene % (Auto) 7.7 % (0.0-10.0) 11/10/18 05:00 Eos % (Auto) 4.1 % (0.0-4.0) H 11/10/18 05:00 Baso % (Auto) 2.1 % (0.0-2.0) H 11/10/18 05:00 Neut # (Auto) 1.4 K/uL (1.8-7.0) L 11/10/18 05:00 Lymph # (Auto) 0.9 K/uL (1.0-4.3) L 11/10/18 05:00 Greene # (Auto) 0.2 K/uL (0.0-0.8) 11/10/18 05:00 Eos # (Auto) 0.1 K/uL (0.0-0.7) 11/10/18 05:00 Baso # (Auto) 0.1 K/uL (0.0-0.2) 11/10/18 05:00 Sodium 138 mmol/l (132-148) 11/10/18 05:00 Potassium 4.1 MMOL/L (3.6-5.0) 11/10/18 05:00 Chloride 99 mmol/L (98-107) 11/10/18 05:00 Carbon Dioxide 32 mmol/L (22-30) H 11/10/18 05:00 Anion Gap 11 (10-20) 11/10/18 05:00 BUN 14 mg/dl (7-17) 11/10/18 05:00 Creatinine 1.4 mg/dl (0.7-1.2) H 11/10/18 05:00 Est GFR ( Amer) 49 11/10/18 05:00 Est GFR (Non-Af Amer) 40 11/10/18 05:00 POC Glucose (mg/dL) 102 mg/dL (65-110) 11/10/18 11:06 Random Glucose 167 mg/dL (65-105) H 11/10/18 05:00 Hemoglobin A1c 7.6 % (4.2-6.5) H 11/10/18 05:00 Calcium 8.3 mg/dL (8.4-10.2) L 11/10/18 05:00 Phosphorus 3.5 mg/dl (2.5-4.5) 11/08/18 17:07 Magnesium 1.7 MG/DL (1.6-2.3) 11/10/18 05:00 Total Bilirubin 0.4 mg/dl (0.2-1.3) 11/10/18 05:00 AST 52 U/L (14-36) H 11/10/18 05:00 ALT 24 U/L (9-52) 11/10/18 05:00 Alkaline Phosphatase 69 U/L (38-126) 11/10/18 05:00 Troponin I 0.0150 ng/mL (0.00-0.120) 11/09/18 08:20 NT-Pro-B Natriuret Pep 1570 pg/ml (0-450) H 11/08/18 17:07 Total Protein 6.4 G/DL (6.3-8.2) 11/10/18 05:00 Albumin 2.8 g/dL (3.5-5.0) L 11/10/18 05:00 Globulin 3.6 gm/dL (2.2-3.9) 11/10/18 05:00 Albumin/Globulin Ratio 0.8 (1.0-2.1) L 11/10/18 05:00 Triglycerides 148 mg/DL (0-149) D 11/10/18 05:00 Cholesterol 114 mg/dL (0-199) 11/10/18 05:00 LDL Cholesterol Direct 59 mg/dL (0-129) 11/10/18 05:00 HDL Cholesterol 27 MG/DL (30-70) L 11/10/18 05:00 Lipase 199 U/L (23-300) 11/08/18 22:00 Alpha Fetoprotein 1.2 IU/mL (0.0-7.22) 11/10/18 05:00 CA 125 Antigen 442 U/mL (0-35) H 11/10/18 05:00 Thyroxine (T4) 6.81 ug/dl (5.5-11.0) 11/10/18 05:00 TSH 3rd Generation 3.79 mIU/ML (0.46-4.68) 11/10/18 05:00 Cortisol AM Sample 3.1 ug/dL (4.46-22.7) L 11/10/18 05:00 Urine Color Yellow (YELLOW) 11/09/18 09:10 Urine Clarity Clear (Clear) 11/09/18 09:10 Urine pH 7.0 (5.0-8.0) 11/09/18 09:10 Ur Specific [place] 1.008 (1.003-1.030) 11/09/18 09:10 Urine Protein Negative mg/dL (NEGATIVE) 11/09/18 09:10 Urine Glucose (UA) 50 mg/dL (NEGATIVE) 11/09/18 09:10 Urine Ketones Negative mg/dL (NEGATIVE) 11/09/18 09:10 Urine Blood Negative (NEGATIVE) 11/09/18 09:10 Urine Nitrate Negative (NEGATIVE) 11/09/18 09:10 Urine Bilirubin Negative (NEGATIVE) 11/09/18 09:10 Urine Urobilinogen 0.2-1.0 mg/dL (0.2-1.0) 11/09/18 09:10 Ur Leukocyte Esterase Neg Heidi/uL (Negative) 11/09/18 09:10 Urine RBC (Auto) 1 /hpf (0-3) 11/09/18 09:10 Urine Microscopic WBC 1 /hpf (0-5) 11/09/18 09:10 Ur Squamous Epith Cells < 1 /hpf (0-5) 11/09/18 09:10 Urine Bacteria Rare (<OCC) 11/09/18 09:10 Hepatitis A IgM Ab Negative (NEGATIVE) 11/09/18 04:30 Hep Bs Antigen Negative (NEGATIVE) 11/09/18 04:30 Hepatitis C Antibody Negative (NEGATIVE) 11/09/18 04:30 - Hospital Course Hospital Course: 48 yo F with history of right eye blindness, TIA, CAD, IDDM II with diabetic neuropathy, hypertension, anemia, gout, anxiety, and environmental allergies- presented to ED on 11/08/18 with about 1 weeks duration of left sided abdominal pain with loss of appetite, weakness, new onset shortness of breath on light exertion, palpitations. Patient has history of anemia; has recently finished 5 monthly infusions of venofer, states done by event lighting specialist. Patient was admitted for shortness of breath and for evaluation of liver cirrhosis. Patient knows about liver cirrhosis but had no outpatient follow. During hospitalization, Electrical Installer Dr. Acosta, hepatobiliary surgeon Dr. Fan, squad leader Dr. Granados, hem/onc Dr. Kincaid and Aircraft Life Support Fitter Dr. Marte were involved in patient care. Patient's CT A/P showed left sided adnexal cyst but patient refused to evaluated by [facility] stating she knows everyone at [facility] department and will follow outside provider. Patient received lasix 40 mg IVP for one day. This morning, patient's BUN/Cr was slightly elevated and lasix was decreased to 40 mg IVP daily. Patient has stable BP and saturating >95% on RA. Patient is hemodynamically stable to discharge home. Advised to follow up with outpatient color separation photographer as soon as possible for left adnexal mass and elevated CA 125. Advised to follow up with PMD and hepatobiliary surgeon. Patient agrees with the plan. Plan: Shortness of Breath likely secondary to CHF exacerbation -Improved -proBNP 1570 -d/c Lasix 40 mg IVP BID -start lasix 40 mg IVP QD -Echo on 11/08/18: EF 55-60%. Left atrium is mild to moderately dilated. There is no tricuspid valve regurgitation noted. Chronic liver cirrhosis: -Abdominal pain improved -Abdominal US: IMPRESSION: 1. No cholelithiasis. Severe diffuse wall gallbladder wall thickening which is nonspecific and could be related to underdistention, gallbladder edema or thickening related to secondary etiologies. 2. Mild hepatomegaly. Diffuse increased echogenicity in the liver may reflect hepatic steatosis however parenchymal infectious/ inflammatory etiologies cannot be entirely excluded. Clinical and laboratory correlation is advised. 3. Small abdominal ascites. -GI consult - Dr. Acosta, recs appreciated. -Hem/onc consult--Dr. Kincaid, recs appreciated. -Hepatobiliary surgeon, Dr. Fan, recs appreciated. Acute Kidney injury: -BUN 14/1.4 with GFR 40 -d/c lasix 40 ivp bid -start lasix 40 IVP qd -f/u BMP Adnexal Cyst - TVUS: limited exam due to body habitus. - ULTRASOUND SPEC eval: patient declined ob/gyn eval in hospital. She will f/u outpatient. Hypertension -controlled -Resume home meds clonidine, metoprolol succinate. MARYA -Advised to continue use CPAP machine CAD - Resume home meds for BP control and Ranexa IDDM - Resume insulin; hold metformin for now - Insulin coverage scale; hypoglycemia protocol Hypothyroidism - Resume levothyroxine 200 mcg daily History of TIA - Resume plavix Anxiety - Home med xanax 0.25 mg HS PRN ordered Anemia - Asymptomatic; Hgb 11.8 - F/u CBC Gout - Resume home med allopurinol Allergies - Resume home med montelukast Diet - Consistent Carb/Heart Healthy - Protonix for GI prophylaxis Discharge Exam - Additional Findings Additional findings: - Constitutional Appears: No Acute Distress, Older Than Stated Age, Other (morbidly obese) - Head Exam Head Exam: NORMAL INSPECTION - Eye Exam Additional comments: Eye patch over right eye - ENT Exam ENT Exam: Mucous Membranes Moist - Neck Exam Neck Exam: Full ROM, Normal Inspection - Respiratory Exam Respiratory Exam: NORMAL BREATHING PATTERN. absent: Accessory Muscle Use, Rhonchi, Wheezes, Respiratory Distress Additional comments: NO wheezing. - Cardiovascular Exam Cardiovascular Exam: REGULAR RHYTHM, +S1, +S2 - GI/Abdominal Exam GI & Abdominal Exam: Soft, Normal Bowel Sounds. absent: Tenderness Additional comments: morbidly obese with extensively large abdominal girth - Extremities Exam Extremities Exam: Normal Capillary Refill, Pedal Edema (1+). absent: Calf Tenderness - Neurological Exam Neurological Exam: Alert, Awake, Oriented x3 - Psychiatric Exam Psychiatric exam: Normal Affect, Normal Mood - Skin Skin Exam: Dry, Normal Color Discharge Plan - Follow Up Plan Condition: FAIR Disposition: HOME/ ROUTINE Instructions: Heart Failure, Adult (DC), Shortness of Breath (Dyspnea) (DC), Cirrhosis (DC) Additional Instructions: Please follow up with your color separation photographer doctor for left adnexal mass and increased level of CA-125 ,and Liver specialist Dr. Fan in 1-2 weeks. please keep scheduled appt with Dr. Friedman Referrals: Esteban Fan MD [Staff Provider] - Hector Granados MD [Staff Provider] - Kylie Kincaid MD [Family Provider] - Clinical Quality Measures - CQM - Heart Failure Ejection Fraction: 40 % or Greater Left Ventricular Function to be assessed after discharge: No TANNER Inhibitor Prescribed: No Contraindication/Reason for not providing: EE 55-60% Beta-Rakel Prescribed: Metoprolol Succinate Angiotensin II Receptor Rakel Prescribed: No Contraindication/Reason for not providing: EE 55-60% AnticoagulationTherapy for Atrial Fibrillation/Atrialflutter: No Contraindication/Reason for not providing: on PLAVIX Aldosterone Antagonist Prescribed: No Contraindication/Reason for not providing: EE 55-60% Hydralazine Nitrate Prescribed: No Contraindication/Reason for not providing: No chest pain, EE 55-60% Implantable Cardioverter Defibrillator Therapy: No Contraindication/Reason for not providing: EE 55-60% Cardiac Resynchronization Therapy Prescribed: No Contraindication/Reason for not providing: EE 55-60% Will be discharged to: Home Follow Up Date (must be within 7 days from discharge): 11/17/18 (Patient will call to make appointment)
[2018-11-10 16:08] VITALS: BP 131/80; PULSE 65; RESP 16; TEMP 98.4; O2SAT 96
[2018-11-10] MEDS ORDERED: Insulin Lispro (humaLOG) 100 Units/ml Inj SC SCH (16:30)
--- NOTE | 2018-11-11 02:16 | PN ---
DATE: 11/10/2018 ENDOCRINOLOGY FOLLOWUP NOTE LOCATION: Room 410. SUBJECTIVE: This is a 48-year-old female with recent uncontrolled type 1 insulin-dependent diabetes, presenting here with diffuse abdominal pain localized to the left upper and lower quadrants and is now undergoing GI workup and management and also being followed closely for metabolic management with extremes of glycemic fluctuations as noted thereof. However, overnight glucose levels have improved and the glycemic values have ranged from 102 to 125 and 152 mg/dL. Her hemoglobin A1c is 7.6%, which is actually near optimal in terms of her metabolic control on the outpatient, which is quite remarkable improvement since the previous year when her average A1c were always above 12% to 16% as noted. Her serum cortisol level is 3.1 with an alpha-fetoprotein of 1.2. LABORATORY DATA: Her chemistries showed a BUN of 14, sodium 138, potassium 4.1, chloride 99, CO2 32, glucose 167, and creatinine 1.4. Her cholesterol is with triglyceride levels of 148. Her thyroid studies showed a T4 of 6.81 with a TSH of 3.79. Her CA-125, however, is extremely elevated at 442. ASSESSMENT: This is a 48-year-old female with uncontrolled and decompensated type 1 insulin-dependent diabetes with left-sided abdominal pain and an apparent large left ovarian mass with a concomitant markedly elevated CA-125 level and the possibility always of a left ovarian malignancy has to be excluded at this time. Moreover, also quite a surprise if the patient's CT scan findings of advanced liver cirrhosis with portal hypertension and splenomegaly with underlying varices as noted. The most likely etiology would be a fatty liver or the so-called nonalcoholic steatohepatitis evolving into liver cirrhosis as noted. She also has diabetic microvascular complications of retinopathy, polyneuropathy, and nephropathy with underlying early chronic kidney disease. Moreover, she also has significant diabetic macrovascular complications of coronary artery disease with previous coronary stent placements and peripheral arterial disease and vasculopathy. PLAN OF MANAGEMENT: As discussed lengthily with the patient and her mother and her at the bedside, the implications for the aforementioned have to be ascertained and worked up and she is to follow with all the multi-specialists involved in her complicated medical care, especially with a multiple comorbid medical conditions and complications as mentioned above. We would highly recommend a EXTERMINATION INSPECTOR evaluation and followup accordingly and a very close followup with the GI and/or liver specialist as she was seen also with this admission. In the meantime for her insulin regimen, we will modify once again her basal and bolus insulin drug combination with Humalog to be given as 20 units t.i.d. before meals as ordered. We will also lower the basal insulin with Levemir given as 20 units every 12 hours at 10:00 a.m. and 10:00 p.m. daily as given. We will follow and advise accordingly. We will also continue the levothyroxine given as 200 mcg daily as ordered as her biochemical status for the thyroid indices have remained near optimal as noted. Elizabeth Marte MD
--- NOTE | 2018-11-11 09:08 | PQF ---
PROVIDER RESPONSE TEXT: Mild persistent Asthma not exacerbated during this admission. Remains on medication as outpatient wit h good control. Previously diagnosed many years ago. .2 (two) queries as follows: Asthma is documented in the Medical Record. Please specify the type and severity of asthma : Stable o r in Exacerbtion: : Type: -- Mild intermittent -- Mild persistent -- Moderate persistent -- Severe persistent -- Other, please specify Pulmonary consult: dxs. include:1) Asthma Status: Chronic Priority: High -singulair, O2: PRN The patient's Clinical Indicators include: ---- REVIEWER QUERY TEXT: Asthma Specificity and Type 2 (two) queries as follows: Asthma is documented in the Medical Record. Please specify the type and severity of asthma : Stable or in Exacerbtion: : Type: -- Mild intermittent -- Mild persistent -- Moderate persistent -- Severe persistent -- Other, please specify Pulmonary consult: dxs. include:1) Asthma Status: Chronic Priority: High -singulair, O2: PRN The patient's Clinical Indicators include: ---- Query created by: Nancy Gil on 11/11/2018 8:49 AM Electronically signed by: Hector Granados MD 11/11/2018 9:05 AM
[2018-11-11] MEDS ORDERED: Ergocalciferol 50,000 Intl Units Cap PO SCH (22:16)
== END 2018-11-10 18:05 | disposition home or self-care (01) | DRG 292 ==
LOC: H.ER 15:34 → H.ERHOLD 21:05 → H.TEL 23:47
PROVIDERS: ADMIT Internal Medicine; ATTEND Internal Medicine
DX: I11.0 Hypertensive heart disease with heart failure (principal); N17.9 Acute kidney failure, unspecified; E66.2 Morbid (severe) obesity with alveolar hypoventilation; K76.6 Portal hypertension; R18.8 Other ascites; Z68.43 Body mass index [BMI] 50.0-59.9, adult; D61.818 Other pancytopenia; Z79.4 Long term (current) use of insulin; K75.81 Nonalcoholic steatohepatitis (NASH); D50.9 Iron deficiency anemia, unspecified; E11.319 Type 2 diabetes mellitus with unspecified diabetic retinopathy without macular edema; E11.51 Type 2 diabetes mellitus with diabetic peripheral angiopathy without gangrene; I50.33 Acute on chronic diastolic (congestive) heart failure; I25.10 Atherosclerotic heart disease of native coronary artery without angina pectoris; F32.9 Major depressive disorder, single episode, unspecified; E11.43 Type 2 diabetes mellitus with diabetic autonomic (poly)neuropathy; E11.65 Type 2 diabetes mellitus with hyperglycemia; K31.84 Gastroparesis; K74.60 Unspecified cirrhosis of liver; M81.0 Age-related osteoporosis without current pathological fracture; Z86.711 Personal history of pulmonary embolism; M10.9 Gout, unspecified; J45.20 Mild intermittent asthma, uncomplicated; Z86.73 Personal history of transient ischemic attack (TIA), and cerebral infarction without residual deficits; Z95.5 Presence of coronary angioplasty implant and graft; H54.61 Unqualified visual loss, right eye, normal vision left eye; E78.5 Hyperlipidemia, unspecified; K76.0 Fatty (change of) liver, not elsewhere classified; E87.6 Hypokalemia; K21.9 Gastro-esophageal reflux disease without esophagitis; E78.00 Pure hypercholesterolemia, unspecified; E03.9 Hypothyroidism, unspecified; F41.1 Generalized anxiety disorder; E11.21 Type 2 diabetes mellitus with diabetic nephropathy; J44.9 Chronic obstructive pulmonary disease, unspecified; D73.1 Hypersplenism; R97.1 Elevated cancer antigen 125 [CA 125]; N83.202 Unspecified ovarian cyst, left side

== ENCOUNTER 2018-12-28 13:04 | Emergency (ER) | payer MEDICARE ==
[2018-12-28 13:05] VITALS: BMI 49.1
[2018-12-28] MEDS ORDERED: Atropine-Diphenoxylate 0.025-2.5 mg Tab PO STA (13:52)
[2018-12-28] MEDS ORDERED: Sodium Chloride 0.9% 1,000 ML IV STA (13:52)
--- NOTE | 2018-12-28 14:01 | ED PDOC ---
HPI: Abdomen Time Seen by Provider: 12/28/18 13:41 Chief Complaint (Nursing): Abdominal Pain Chief Complaint (Provider): Abdominal pain History Per: Patient History/Exam Limitations: no limitations Onset/Duration Of Symptoms: Persistent, Worse Since (3 days) Current Symptoms Are (Timing): Still Present Additional History Per: Patient Additional Complaint(s): 48yo female, with history of CHF, comes to ER reporting nausea, diarrhea, abdominal pain and distention x 2 weeks, but worsening over the past 3 days. She also reports small amount of bright red blood in her stool, but attributes that to her hemorrhoids. She denies any fevers; also states has not been able to tolerate PO fluids. No additional complaints. PMD: Sarah Kincaid Past Medical History Reviewed: Historical Data, Nursing Documentation, Vital Signs Vital Signs: Last Vital Signs Temp 97.4 F L 12/28/18 13:11 Pulse 97 H 12/28/18 13:11 Resp 16 12/28/18 13:11 BP 151/80 H 12/28/18 13:11 Pulse Ox 94 L 12/28/18 13:11 - Medical History PMH: Anemia, Anxiety, Arthritis, Asthma, Bronchitis, CAD, CHF, Depression, Diabetes, Deep Vein Thrombosis, Fractures, GERD, HTN, Hypercholesterolemia, Hypothyroidism, Peripheral Edema, Pneumonia, Pulmonary Embolism, Sleep Apnea (use c-pap), TIA (x2 2004/2015) Denies: HIV, Osteoporosis, Chronic Kidney Disease - Surgical History Surgical History: Coronary Stent (x4), Endoscopy, Tonsillectomy Denies: Appendectomy, Cholecystectomy - Family History Family History: States: Unknown Family Hx - Immunization History Hx Tetanus Toxoid Vaccination: No Hx Influenza Vaccination: Yes Hx Pneumococcal Vaccination: No - Home Medications Home Medications: Ambulatory Orders Medication Instructions Recorded Ranolazine [Ranexa] 500 mg PO BID #0 ter 02/27/15 Levothyroxine [Synthroid] 200 mcg PO DAILY 05/30/15 Potassium Chloride [K-Dur 20 mEq 40 meq PO BID 05/30/15 ER Tab] Montelukast [Singulair] 10 mg PO HS 07/18/16 Clopidogrel [Plavix] 75 mg PO DAILY #0 tab 08/01/16 Vilazodone HCl [Viibryd] 20 mg PO DAILY 10/07/16 cloNIDine [Catapres] 0.2 mg PO BID 10/07/16 ALPRAZolam [Xanax] 0.25 mg PO HS PRN 01/28/17 Ergocalciferol (Vitamin D2) 50,000 unit PO TH 01/28/17 [Vitamin D2] Furosemide [Lasix] 40 mg PO BID 01/28/17 Levocetirizine Dihydrochloride 5 mg PO HS 01/28/17 [Xyzal] Rosuvastatin Calcium [Crestor] 10 mg PO QOTHERDAY 01/28/17 metFORMIN [glucOPHAGE] 500 mg PO BID 01/28/17 Levalbuterol Tartrate [Xopenex Hfa] 2 puff IH Q6H PRN 07/29/17 Metoprolol Succinate XL [Toprol XL] 100 mg PO DAILY 08/03/17 Insulin Aspart, Recombinant 15 - 25 unit SC ACTID 08/17/17 [Novolog] Insulin Detemir [Levemir] 20 units SC QAM 08/17/17 Nystatin [Nyamyc] 1 appl TOP BID 09/18/17 Pantoprazole [Protonix EC Tab] 40 mg PO DAILY 12/14/17 Allopurinol [Zyloprim] 1 tab PO DAILY 01/18/18 Insulin Lispro [Humalog (Insulin 20 units SUBCUT TID 01/18/18 Lispro)] Azelastine HCl [Astepro] 1 spray NS BID 11/30/18 Vitamin E [Vitamin E 400 Units Cap] 1,000 iu PO BID 11/30/18 - Allergies Allergies/Adverse Reactions: Allergies Allergy/AdvReac Type Severity Reaction Status Date / Time amlodipine [From Norvasc] Allergy RASH Verified 10/20/18 08:13 ciprofloxacin [From Cipro] Allergy NAUSEA Verified 12/21/18 12:28 codeine Allergy FATIGUE Verified 12/21/18 12:28 Iodinated Contrast- Oral and Allergy RASH Verified 12/21/18 12:28 IV Dye kiwi Allergy RASH Verified 12/21/18 12:28 mustard Allergy RASH Verified 12/21/18 12:28 Penicillins Allergy ANAPHYLAXIS Verified 12/21/18 12:28 pepper (genus Capsicum) Allergy RASH Verified 12/21/18 12:28 [pepper] Sulfa (Sulfonamide Allergy RASH Verified 12/21/18 12:28 Antibiotics) tomato Allergy RASH Verified 12/21/18 12:28 metoclopramide HCl AdvReac DIZZINESS Verified 12/21/18 12:28 [From [facility]] filberts Allergy SWELLING Uncoded 12/21/18 12:28 IV CONTRAST Allergy RASH Uncoded 12/21/18 12:28 Review of Systems ROS Statement: Except As Marked, All Systems Reviewed And Found Negative Constitutional: Negative for: Fever, Chills Gastrointestinal: Positive for: Nausea, Abdominal Pain, Diarrhea Physical Exam - Reviewed Nursing Documentation Reviewed: Yes Vital Signs Reviewed: Yes - Physical Exam Appears: Positive for: Non-toxic, No Acute Distress Head Exam: Positive for: ATRAUMATIC, NORMAL INSPECTION, NORMOCEPHALIC Skin: Positive for: Normal Color Eye Exam: Positive for: Normal appearance, EOMI, PERRL ENT: Positive for: Other (dry mucus membranes) Neck: Positive for: Supple Cardiovascular/Chest: Positive for: Regular Rate, Rhythm. Negative for: Tachycardia Respiratory: Positive for: Normal Breath Sounds. Negative for: Respiratory Distress Gastrointestinal/Abdominal: Positive for: Soft, Tenderness (diffuse), Distended (mild). Negative for: Guarding, Rebound Back: Positive for: Normal Inspection Extremity: Positive for: Normal ROM Neurological/Psych: Positive for: Awake, Alert - Laboratory Results Result Diagrams: 12/28/18 14:05 12/28/18 14:05 - ECG O2 Sat by Pulse Oximetry: 94 (RA) Medical Decision Making Medical Decision Makinyo with abdominal pain, nausea and diarrhea Plan: -- Labs -- CT A/P w/o contrast -- IV Fluids -- Zofran 4mg IV -- Lomotil 1tab Po Scribe Attestation: Documented by Concepcion Frye, acting as a scribe for Kwesi Downey MD Provider Scribe Attestation: All medical record entries made by the Scribe were at my direction and personally dictated by me. I have reviewed the chart and agree that the record accurately reflects my personal performance of the history, physical exam, medical decision making, and the department course for this patient. I have also personally directed, reviewed, and agree with the discharge instructions and disposition. Disposition - Clinical Impression Clinical Impression: Abdominal pain - Patient ED Disposition Is Patient to be Admitted: Transfer of Care - Disposition Disposition: Transfer of Care Disposition Time: 16:00 Condition: FAIR Forms: [employer] (Brazilian) Patient Signed Over To: Della Sharma (Pending CT and reeval)
[2018-12-28 14:46] LABS: BASO # 0.1 K/uL (0.0-0.2); BASO % 2.2 % (0.0-2.0); EOS # 0.1 K/uL (0.0-0.7); EOS % 1.9 % (0.0-4.0); HEMOGLOBIN 13.2 g/dL (12.0-16.0); MEAN CELL VOLUME 83.5 fl (81.0-99.0); MEAN CORPUSCULAR HEMOGLOBIN 27.8 pg (27.0-31.0); MEAN CORPUSCULAR HGB CONC 33.3 g/dL (33.0-37.0); MEAN PLATELET VOLUME 8.7 fl (7.2-11.7); MONO # 0.3 K/uL (0.0-0.8); MONO % 7.3 % (0.0-10.0); NEUT % 65.6 % (50.0-75.0); NRBC % 0.2 % (0.0-0.0); RBC 4.76 Mil/uL (3.80-5.20); RED CELL DISTRIBUTION WIDTH 19.8 % (11.5-14.5); WHITE BLOOD COUNT 4.5 K/uL (4.8-10.8)
[2018-12-28] MEDS ORDERED: Atropine-Diphenoxylate 0.025-2.5 mg Tab ONE (14:55)
[2018-12-28 14:56] LABS: ALB/GLOB RATIO 0.9 (1.0-2.1); ALBUMIN 3.4 g/dL (3.5-5.0); ALT/SGPT 29 U/L (9-52); AST/SGOT 66 U/L (14-36); BLOOD UREA NITROGEN 26 mg/dl (7-17); CALCIUM 9.2 mg/dL (8.4-10.2); GFR NON-AFRICAN AMERICAN 53; LIPASE 270 U/L (23-300)
[2018-12-28] MEDS ORDERED: Potassium Chloride 20 mEq ER Tab PO ONE ×2 (15:33→16:14)
--- NOTE | 2018-12-28 16:33 | CT ---
Date of service: 12/28/2018 PROCEDURE: CT Abdomen and Pelvis without intravenous contrast HISTORY: abd pain and distention COMPARISON: 11/22/2018 TECHNIQUE: Without contrast.. Contrast dose: 0 Radiation dose: Total exam DLP = 866.95 mGy-cm. This CT exam was performed using one or more of the following dose reduction techniques: Automated exposure control, adjustment of the mA and/or kV according to patient size, and/or use of iterative reconstruction technique. FINDINGS: LOWER THORAX: There is mild mosaic attenuation in both lower lobes. LIVER: Nodular hepatic contour consistent with cirrhosis. Normal attenuation. No mass. No biliary ductal dilatation. GALLBLADDER AND BILE DUCTS: Gallbladder difficult to appreciate due to surrounding ascites. No calcified gallstones. PANCREAS: Unremarkable. No gross lesion or ductal dilatation. SPLEEN: Splenomegaly. The spleen measures 15.6 cm in greatest dimension. No mass. ADRENALS: Unremarkable. No mass. KIDNEYS AND URETERS: Unremarkable. No hydronephrosis. No solid mass. VASCULATURE: Unremarkable. No aortic aneurysm. There is atherosclerotic calcification of the abdominal aorta. BOWEL: Unremarkable. No obstruction. No gross mural thickening. APPENDIX: Not identified. No secondary findings. PERITONEUM: Moderate ascites slightly increased in extent compared to prior CT. LYMPH NODES: Unremarkable. No enlarged lymph nodes. BLADDER: Unremarkable. REPRODUCTIVE: Unremarkable uterus. Complex left adnexal mass measuring approximately 4.6 x 5.7 cm, containing a 3.8 cm cystic component. Concerning for neoplasm. No significant change from 11/22/2018. BONES: No acute fracture. OTHER FINDINGS: None. IMPRESSION: 5.7 cm stable complex left adnexal mass. Concerning for neoplasm. Increasing ascites. Hepatic cirrhosis. Mild splenomegaly. No other acute abnormality.
--- NOTE | 2018-12-28 16:48 | ED PDOC ---
- Laboratory Results Result Diagrams: 12/28/18 14:05 12/28/18 14:05 Lab Results: Total Bilirubin 1.1 mg/dl (0.2-1.3) 12/28/18 14:05 AST 66 U/L (14-36) H D 12/28/18 14:05 ALT 29 U/L (9-52) 12/28/18 14:05 Alkaline Phosphatase 88 U/L (38-126) 12/28/18 14:05 Total Protein 7.1 G/DL (6.3-8.2) 12/28/18 14:05 Albumin 3.4 g/dL (3.5-5.0) L D 12/28/18 14:05 Globulin 3.7 gm/dL (2.2-3.9) 12/28/18 14:05 Albumin/Globulin Ratio 0.9 (1.0-2.1) L 12/28/18 14:05 Lipase 270 U/L (23-300) 12/28/18 14:05 - ECG O2 Sat by Pulse Oximetry: 94 (RA) Medical Decision Making Medical Decision Makin patient signed out to me pending CT abdomen/pelvis 1809 CT Abdomen/Pelvis FINDINGS: LOWER THORAX: There is mild mosaic attenuation in both lower lobes. LIVER: Nodular hepatic contour consistent with cirrhosis. Normal attenuation. No mass. No biliary ductal dilatation. GALLBLADDER AND BILE DUCTS: Gallbladder difficult to appreciate due to surrounding ascites. No calcified gallstones. PANCREAS: Unremarkable. No gross lesion or ductal dilatation. SPLEEN: Splenomegaly. The spleen measures 15.6 cm in greatest dimension. No mass. ADRENALS: Unremarkable. No mass. KIDNEYS AND URETERS: Unremarkable. No hydronephrosis. No solid mass. VASCULATURE: Unremarkable. No aortic aneurysm. There is atherosclerotic calcification of the abdominal aorta. BOWEL: Unremarkable. No obstruction. No gross mural thickening. APPENDIX: Not identified. No secondary findings. PERITONEUM: Moderate ascites slightly increased in extent compared to prior CT. LYMPH NODES: Unremarkable. No enlarged lymph nodes. BLADDER: Unremarkable. REPRODUCTIVE: Unremarkable uterus. Complex left adnexal mass measuring approximately 4.6 x 5.7 cm, containing a 3.8 cm cystic component. Concerning for neoplasm. No significant change from 11/22/2018. BONES: No acute fracture. OTHER FINDINGS: None. IMPRESSION: 5.7 cm stable complex left adnexal mass. Concerning for neoplasm. Increasing ascites. Hepatic cirrhosis. Mild splenomegaly. No other acute abnormality. pt reeval, tolerated po and feels imrpoved Patient informed of imaging findings and expresses understanding, she states she is being worked up for that mass. she is aware of it.. Reports improvement in ab dominal discomfort. Patient is stable for discharge home, instructed on follow up with Dr. Ennis, who she has been following up with in the past. Scribe Attestation: Documented by Concepcion Frye, acting as a scribe for Della Sharma MD Provider Scribe Attestation: All medical record entries made by the Scribe were at my direction and personally dictated by me. I have reviewed the chart and agree that the record accurately reflects my personal performance of the history, physical exam, medical decision making, and the department course for this patient. I have also personally directed, reviewed, and agree with the discharge instructions and disposition. Disposition - Clinical Impression Clinical Impression: Abdominal pain, Ascites, Adnexal mass - POA Present On Arrival: None - Disposition Disposition: Routine/Home Disposition Time: 18:35 Condition: IMPROVED Additional Instructions: follow up with your primary doctor and your oncologist Dr Sarah ennis in 1-2 days return to the ED with any worsening or concerning symptoms Instructions: Acute Abdomen (Belly Pain), Fluid in the Belly (Ascites) (DC) Forms: [employer] (Martiniquais)
[2018-12-28 18:38] VITALS: BP 147/82; PULSE 75; RESP 17; TEMP 98.4
[2018-12-29 21:07] VITALS: O2SAT 94
== END 2018-12-28 18:35 | disposition home or self-care (01) ==
LOC: H.ER 13:04
DX: R10.9 Unspecified abdominal pain (principal); R18.8 Other ascites; R19.09 Other intra-abdominal and pelvic swelling, mass and lump; E03.9 Hypothyroidism, unspecified; E11.9 Type 2 diabetes mellitus without complications; E78.00 Pure hypercholesterolemia, unspecified; I11.0 Hypertensive heart disease with heart failure; I25.10 Atherosclerotic heart disease of native coronary artery without angina pectoris; Z86.711 Personal history of pulmonary embolism; Z86.73 Personal history of transient ischemic attack (TIA), and cerebral infarction without residual deficits; Z88.0 Allergy status to penicillin; Z95.5 Presence of coronary angioplasty implant and graft; Z88.8 Allergy status to other drugs, medicaments and biological substances
CPT/HCPCS: 74176; 80053; 83690; 85025; 96374; 99283; J2405; J7030

== ENCOUNTER 2019-01-03 11:37 | Observation (INO) | payer MEDICARE, OTHER ==
--- NOTE | 2019-01-03 14:19 | ED PDOC ---
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 Patient was recently diagnosed with Cirrhosis. Patient had a CT performed last week showing significant ascites. Patient denies fever and focal abdominal pain. Dr. Fan recommends paracentesis. Of note, patient is currently taking Plavix. Patient denies taking any other oral anticoagulants including Aspirin. PMD: Hector Granados Sericulturist: Dr Fan Past Medical History Reviewed: Historical Data, Nursing Documentation, Vital Signs - Medical History PMH: Anemia, Anxiety, Arthritis, Asthma, Bronchitis, CAD, CHF, Depression, Diabetes, Deep Vein Thrombosis, Fractures, GERD, HTN, Hypercholesterolemia, Hypothyroidism, Peripheral Edema, Pneumonia, Pulmonary Embolism, Sleep Apnea (use c-pap), TIA (x2 2004/2015) Denies: HIV, Osteoporosis, Chronic Kidney Disease - Surgical History Surgical History: Coronary Stent (x4), Endoscopy, Tonsillectomy Denies: Appendectomy, Cholecystectomy - Family History Family History: States: Unknown Family Hx - Immunization History Hx Tetanus Toxoid Vaccination: No Hx Influenza Vaccination: Yes Hx Pneumococcal Vaccination: No - Home Medications Home Medications: Ambulatory Orders Medication Instructions Recorded Levothyroxine [Synthroid] 200 mcg PO DAILY 05/30/15 Montelukast [Singulair] 10 mg PO HS 07/18/16 Clopidogrel [Plavix] 75 mg PO DAILY #0 tab 08/01/16 Vilazodone HCl [Viibryd] 20 mg PO DAILY 10/07/16 cloNIDine [Catapres] 0.2 mg PO Q12 10/07/16 Ergocalciferol (Vitamin D2) 50,000 unit PO TH 01/28/17 [Vitamin D2] Levocetirizine Dihydrochloride 5 mg PO HS 01/28/17 [Xyzal] Rosuvastatin Calcium [Crestor] 10 mg PO Q72H 01/28/17 metFORMIN [glucOPHAGE] 500 mg PO BID 01/28/17 Metoprolol Succinate XL [Toprol XL] 100 mg PO DAILY 08/03/17 Insulin Aspart, Recombinant 6 unit SC ACTID 08/17/17 [Novolog] Nystatin [Nyamyc] 1 appl TOP BID 09/18/17 Allopurinol [Zyloprim] 300 mg PO DAILY 01/18/18 Vitamin E [Vitamin E 400 Units Cap] 800 unit PO QAM 11/30/18 Famotidine [Pepcid] 20 mg PO BID 01/03/19 Insulin Glargine,Hum.rec.anlog 5 unit SC Q12 01/03/19 [Basaglar Kwikpen U-100] Ranolazine [Ranexa] 500 mg PO Q12 01/03/19 Vitamin E [Vitamin E 400 Units Cap] 1,200 unit PO HS 01/03/19 Furosemide [Lasix] 80 mg PO DAILY #30 tab 01/05/19 Spironolactone [Aldactone] 150 mg PO DAILY #90 tab 01/05/19 - Allergies Allergies/Adverse Reactions: Allergies Allergy/AdvReac Type Severity Reaction Status Date / Time amlodipine [From Norvasc] Allergy RASH Verified 10/20/18 08:13 ciprofloxacin [From Cipro] Allergy NAUSEA Verified 12/21/18 12:28 codeine Allergy FATIGUE Verified 12/21/18 12:28 Iodinated Contrast- Oral and Allergy RASH Verified 12/21/18 12:28 IV Dye kiwi Allergy RASH Verified 12/21/18 12:28 mustard Allergy RASH Verified 12/21/18 12:28 Penicillins Allergy ANAPHYLAXIS Verified 12/21/18 12:28 pepper (genus Capsicum) Allergy RASH Verified 12/21/18 12:28 [pepper] Sulfa (Sulfonamide Allergy RASH Verified 12/21/18 12:28 Antibiotics) tomato Allergy RASH Verified 12/21/18 12:28 metoclopramide HCl AdvReac DIZZINESS Verified 12/21/18 12:28 [From Reglan] filberts Allergy SWELLING Uncoded 12/21/18 12:28 IV CONTRAST Allergy RASH Uncoded 12/21/18 12:28 Review of Systems ROS Statement: Except As Marked, All Systems Reviewed And Found Negative Constitutional: Positive for: Weakness Respiratory: Positive for: Shortness of Breath, SOB with Exertion Gastrointestinal: Positive for: Other (abdominal distention) Physical Exam - Reviewed Nursing Documentation Reviewed: Yes Vital Signs Reviewed: Yes - Physical Exam Head Exam: Positive for: ATRAUMATIC Skin: Positive for: Pallor Eye Exam: Negative for: Normal appearance (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 Negative for: Murmur Respiratory: Positive for: Normal Breath Sounds. Negative for: Respiratory Distress Gastrointestinal/Abdominal: Positive for: Distended (tense ), Asicites Extremity: Positive for: Normal ROM. Negative for: Deformity Neurological/Psych: Positive for: Awake, Alert. Negative for: Motor/Sensory Deficits - Laboratory Results Result Diagrams: 01/05/19 05:50 01/05/19 05:50 Medical Decision Making Medical Decision Making: Time: 1342 A/P: Will attempt to discuss with Interventional Radiology for paracentesis -- CMP -- Magnesium -- Phosporus -- CBC with Differentials -- PTT -- Prothrombin Time -- CXR Portable -- US Paracentesis [IR Drain ABD Paracentesis] labs reviewed admit Obs Dr Wolf for IR availability for paracentesis as ascitic fluid causing pressure on diaphragm with dyspnea. Patient took plavix this morning per her report. No NOACs and denies taking ASA. Scribe Attestation: Documented by Gladis Schmitz, acting as a scribe for Casa Manrique III, DO. Provider Scribe Attestation: All medical record entries made by the Scribe were at my direction and personally dictated by me. I have reviewed the chart and agree that the record accurately reflects my personal performance of the history, physical exam, medical decision making, and the department course for this patient. I have also personally directed, reviewed, and agree with the discharge instructions and disposition. Disposition - Clinical Impression Clinical Impression: Ascites, Dyspnea - Patient ED Disposition Is Patient to be Admitted: Yes Counseled Patient/Family Regarding: Studies Performed, Diagnosis, Need For Followup, Rx Given - Disposition Disposition Time: 15:15 Condition: GOOD - Pt Status Changed To: Hospital Disposition Of: Observation - POA Present On Arrival: None
--- NOTE | 2019-01-03 16:05 | CP.PCM.HP ---
<Dickson PeacockRosa Juan - Last Filed: 01/03/19 17:00> History of Present Illness - History of Present Illness History of Present Illness: 48 yo F with history of right eye blindness, TIA, CAD, IDDM II with diabetic neuropathy, hypertension, anemia, gout, anxiety, and environmental allergies- presented to ED complaining of progressive and gradually increase abdominal girth for 2 weeks and progressive associated short of breath when lying down and dyspnea on ambulation. Patient admits a h/o hepatic steatosis and recently diagnosed with Liver Cirrhosis by her Pier Hand, Dr. Corley. Patient had a CT performed last week on 12/28/18 showing increasing ascites. Patient denies fevers, chills, melena, N/V, urinary symptoms. Never had similar abdominal distension episode in the past. Denies fevers, chills, syncope, chest pain, dizziness, dysuria, constipation. PMD: Dr. Granados GI: Dr. Acosta Dispatcher Maintenance: Dr. Kinjal Kincaid Brand Ambassador Promotional Model Dr. Manisha Kincaid Pier Hand: Dr. 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; D&C X3 SH: Denies smoking, alcohol, drug use FH: NC Allergies: as per EMR: Cipro; Codine; Iodine contrast; PCN; Amlodipine; Reglan; Sulfa, Kiwi; Tomato; mustard; Medication: reviewed, as per med rec Present on Admission - Present on Admission Any Indicators Present on Admission: No History of DVT/PE: No History of Uncontrolled Diabetes: No Urinary Catheter: No Decubitus Ulcer Present: No Review of Systems - Review of Systems All systems: reviewed and no additional remarkable complaints except Past Patient History - Infectious Disease Hx of Infectious Diseases: None - Past Medical History & Family History Past Medical History?: Yes - Past Social History Smoking Status: Never Smoked - CARDIAC Hx Congestive Heart Failure: Yes Hx Hypercholesterolemia: Yes Hx Hypertension: Yes Hx Peripheral Edema: Yes - PULMONARY Hx Asthma: Yes Hx Bronchitis: Yes Hx Pneumonia: Yes Hx Pulmonary Embolism: Yes Hx Sleep Apnea: Yes (use c-pap) - NEUROLOGICAL Hx Transient Ischemic Attacks (TIA): Yes (x2 2004/2015) - HEENT Hx Blind: Yes (right eye) - RENAL Hx Chronic Kidney Disease: No - ENDOCRINE/METABOLIC Hx Hypothyroidism: Yes - HEMATOLOGICAL/ONCOLOGICAL Hx Anemia: Yes Hx Human Immunodeficiency Virus (HIV): No - INTEGUMENTARY Hx Dermatological Problems: Yes - MUSCULOSKELETAL/RHEUMATOLOGICAL Hx Arthritis: Yes Hx Fractures: Yes Hx Osteoporosis: No - GASTROINTESTINAL Hx Gastrointestinal Disorders: Yes Hx Gastroesophageal Reflux: Yes Hx Hemorrhoids: Yes Other/Comment: attempted lap band - GENITOURINARY/GYNECOLOGICAL Hx Urinary Tract Infection: Yes - PSYCHIATRIC Hx Anxiety: Yes Hx Depression: Yes - SURGICAL HISTORY Hx Appendectomy: No Hx Cholecystectomy: No Hx Coronary Stent: Yes (x4) Hx Tonsillectomy: Yes - ANESTHESIA Hx Anesthesia: Yes Hx Anesthesia Reactions: Yes (takes pre-meds prior to anesthesia) Meds Allergies/Adverse Reactions: Allergies Allergy/AdvReac Type Severity Reaction Status Date / Time amlodipine [From Norvasc] Allergy RASH Verified 10/20/18 08:13 ciprofloxacin [From Cipro] Allergy NAUSEA Verified 12/21/18 12:28 codeine Allergy FATIGUE Verified 12/21/18 12:28 Iodinated Contrast- Oral and Allergy RASH Verified 12/21/18 12:28 IV Dye kiwi Allergy RASH Verified 12/21/18 12:28 mustard Allergy RASH Verified 12/21/18 12:28 Penicillins Allergy ANAPHYLAXIS Verified 12/21/18 12:28 pepper (genus Capsicum) Allergy RASH Verified 12/21/18 12:28 [pepper] Sulfa (Sulfonamide Allergy RASH Verified 12/21/18 12:28 Antibiotics) tomato Allergy RASH Verified 12/21/18 12:28 metoclopramide HCl AdvReac DIZZINESS Verified 12/21/18 12:28 [From Reglan] filberts Allergy SWELLING Uncoded 12/21/18 12:28 IV CONTRAST Allergy RASH Uncoded 12/21/18 12:28 Physical Exam - Constitutional Appears: Non-toxic, No Acute Distress - ENT Exam ENT Exam: Mucous Membranes Dry - Respiratory Exam Respiratory Exam: Clear to Auscultation Bilateral, NORMAL BREATHING PATTERN - Cardiovascular Exam Cardiovascular Exam: REGULAR RHYTHM, +S1, +S2 - GI/Abdominal Exam GI & Abdominal Exam: Distended, Organomegaly. absent: Guarding, Rebound, Rigid - Extremities Exam Extremities exam: Negative for: calf tenderness - Neurological Exam Neurological exam: Alert, Oriented x3 - Psychiatric Exam Psychiatric exam: Normal Affect, Normal Mood - Skin Skin Exam: Dry, Intact, Normal Color Results - Labs Result Diagrams: 01/03/19 16:00 Assessment & Plan - Assessment and Plan (Free Text) Assessment: 48 y/o F with extensive PMHx including Hepatic steatosis, recently diagnosed with Hepatic Cirrhosis, admitted with gradually worsening abdominal distension associated with dypsnea for possible paracentesis. Plan: Abdominal distension and pain -likely 2/2 Hepatic cirrhosis -afebrile, no clinical evidence of SBP at this time -had an abdominal CT scan done on 12/28/18 which reported : Hepatic cirrhosis , increasing ascitis. -CBC, CMP, PT/PTT -c/w furosemide and spironolactone -Dr. Wolf spoke with Dr. Zepeda( IR operations technician) because patient is taking plavix. Per IR if coagulation panel is WNL patient could undergo Paracentesis -Send for ascitis fluid analysis -IR consult for paracentesis -Pier Hand: Dr. Corley Left adnexal mass Patient states she had Ovarian CA work up done as outpatient by her Hem/ONc, Dr. Manisha Kincaid, and there is no evidence of malignancy. c/w follow up as outpatient with Dr. Manisha Kincaid Hypertension controlled - Resume home meds CAD -controlled -Resume home meds IDDM - c/w home treatment - Insulin coverage scale; hypoglycemia protocol Hypothyroidism - Resume levothyroxine 200 mcg daily History of TIA - Resume plavix Anxiety - Home med xanax 0.25 mg HS PRN ordered Gout - Resume home med allopurinol Allergies - Resume home med montelukast DVT prophylaxis SCDS for now - Date & Time Date: 01/03/19 Time: 16:00 <Dimitris Wolf - Last Filed: 01/03/19 23:28> Results - Vital Signs Recent Vital Signs: Last Vital Signs Temp 98.4 F 01/03/19 18:45 Pulse 80 01/03/19 20:39 Resp 18 01/03/19 18:45 BP 154/94 H 01/03/19 20:39 Pulse Ox 94 L 01/03/19 18:45 - Labs Result Diagrams: 01/03/19 17:05 01/03/19 17:05 Labs: Laboratory Results - last 24 hr 01/03/19 01/03/19 01/03/19 16:00 17:05 17:05 WBC 4.7 L 3.9 L RBC 4.85 4.62 Hgb 13.1 12.6 Hct 40.7 38.7 MCV 84.0 83.6 MCH 27.0 27.3 MCHC 32.1 L 32.7 L RDW 19.6 H 19.6 H Plt Count 109 L 104 L MPV 8.5 8.9 Neut % (Auto) 57.1 55.5 Lymph % (Auto) 31.4 32.4 [place] % (Auto) 7.8 7.2 Eos % (Auto) 2.3 2.6 Baso % (Auto) 1.4 2.3 H Neut # (Auto) 2.7 2.2 Lymph # (Auto) 1.5 1.3 [place] # (Auto) 0.4 0.3 Eos # (Auto) 0.1 0.1 Baso # (Auto) 0.1 0.1 PT INR APTT Sodium 138 Potassium 3.8 Chloride 99 Carbon Dioxide 28 Anion Gap 15 BUN 33 H Creatinine 1.2 Est GFR ( Amer) 58 Est GFR (Non-Af Amer) 48 POC Glucose (mg/dL) Random Glucose 80 Calcium 9.7 Total Bilirubin 1.1 AST 69 H ALT 40 Alkaline Phosphatase 91 Total Protein 7.2 Albumin 3.4 L Globulin 3.8 Albumin/Globulin Ratio 0.9 L 01/03/19 01/03/19 17:05 21:30 WBC RBC Hgb Hct MCV MCH MCHC RDW Plt Count MPV Neut % (Auto) Lymph % (Auto) [place] % (Auto) Eos % (Auto) Baso % (Auto) Neut # (Auto) Lymph # (Auto) [place] # (Auto) Eos # (Auto) Baso # (Auto) PT 15.8 H INR 1.4 APTT 41.2 H Sodium Potassium Chloride Carbon Dioxide Anion Gap BUN Creatinine Est GFR ( Amer) Est GFR (Non-Af Amer) POC Glucose (mg/dL) 137 H Random Glucose Calcium Total Bilirubin AST ALT Alkaline Phosphatase Total Protein Albumin Globulin Albumin/Globulin Ratio Attending/Attestation - Attestation I have personally seen and examined this patient.: Yes I have fully participated in the care of the patient.: Yes I have reviewed all pertinent clinical information: Yes Notes (Text): 01/03/19 23:27 Patient seen and examined with resident. Case discussed and agreed with assessment and plan of management.
[2019-01-03 16:25] LABS: BASO # 0.1 K/uL (0.0-0.2); BASO % 1.4 % (0.0-2.0); EOS # 0.1 K/uL (0.0-0.7); EOS % 2.3 % (0.0-4.0); HEMOGLOBIN 13.1 g/dL (12.0-16.0); LYMPH # 1.5 K/uL (1.0-4.3); LYMPH % 31.4 % (20.0-40.0); MEAN CORPUSCULAR HGB CONC 32.1 g/dL (33.0-37.0); MEAN PLATELET VOLUME 8.5 fl (7.2-11.7); MONO # 0.4 K/uL (0.0-0.8); MONO % 7.8 % (0.0-10.0); NEUT # 2.7 K/uL (1.8-7.0); NEUT % 57.1 % (50.0-75.0); NRBC % 0.2 % (0.0-0.0); RBC 4.85 Mil/uL (3.80-5.20); RED CELL DISTRIBUTION WIDTH 19.6 % (11.5-14.5); WHITE BLOOD COUNT 4.7 K/uL (4.8-10.8)
--- NOTE | 2019-01-03 16:51 | RAD ---
Date of service: 01/03/2019 HISTORY: Shortness of breath. COMPARISON: 11/08/2018. FINDINGS: LUNGS: No active pulmonary disease. PLEURA: No significant pleural effusion identified, no pneumothorax apparent. CARDIOVASCULAR: No atherosclerotic calcification present Normal. OSSEOUS STRUCTURES: No significant abnormalities. VISUALIZED UPPER ABDOMEN: Normal. OTHER FINDINGS: None. IMPRESSION: No active disease. No significant interval change compared to the prior examination(s).
[2019-01-03] MEDS: Insulin Lispro (humaLOG) 100 Units/ml Inj SC SCH (17:00)
[2019-01-03 17:41] LABS: BASO # 0.1 K/uL (0.0-0.2); BASO % 2.3 % (0.0-2.0); EOS # 0.1 K/uL (0.0-0.7); EOS % 2.6 % (0.0-4.0); HEMOGLOBIN 12.6 g/dL (12.0-16.0); LYMPH # 1.3 K/uL (1.0-4.3); LYMPH % 32.4 % (20.0-40.0); MEAN CELL VOLUME 83.6 fl (81.0-99.0); MEAN CORPUSCULAR HEMOGLOBIN 27.3 pg (27.0-31.0); MEAN CORPUSCULAR HGB CONC 32.7 g/dL (33.0-37.0); MEAN PLATELET VOLUME 8.9 fl (7.2-11.7); MONO # 0.3 K/uL (0.0-0.8); MONO % 7.2 % (0.0-10.0); NEUT # 2.2 K/uL (1.8-7.0); NEUT % 55.5 % (50.0-75.0); NRBC % 0.1 % (0.0-0.0); RBC 4.62 Mil/uL (3.80-5.20); RED CELL DISTRIBUTION WIDTH 19.6 % (11.5-14.5); WHITE BLOOD COUNT 3.9 K/uL (4.8-10.8)
[2019-01-03 17:43] LABS: INR 1.4; PROTHROMBIN TIME 15.8 Seconds (9.8-13.1)
[2019-01-03 17:45] LABS: PARTIAL THROMBOPLASTIN TIME 41.2 Seconds (25.6-37.1)
[2019-01-03 18:13] LABS: ALB/GLOB RATIO 0.9 (1.0-2.1); ALBUMIN 3.4 g/dL (3.5-5.0); CALCIUM 9.7 mg/dL (8.4-10.2)
[2019-01-03] MEDS: Ranolazine 500 mg Extended Release Tablets PO SCH (20:42)
[2019-01-03] MEDS: Insulin Detemir 100 Units/ml Inj SC SCH (21:51)
[2019-01-04 04:54] VITALS: BMI 51.3
[2019-01-04] MEDS: Levothyroxine 200 MCG TAB PO SCH (05:46)
[2019-01-04 07:01] LABS: BASO # 0.1 K/uL (0.0-0.2); BASO % 2.1 % (0.0-2.0); EOS # 0.1 K/uL (0.0-0.7); EOS % 3.3 % (0.0-4.0); HEMOGLOBIN 11.9 g/dL (12.0-16.0); LYMPH # 1.1 K/uL (1.0-4.3); LYMPH % 31.5 % (20.0-40.0); MEAN CELL VOLUME 84.1 fl (81.0-99.0); MEAN CORPUSCULAR HEMOGLOBIN 27.4 pg (27.0-31.0); MEAN CORPUSCULAR HGB CONC 32.6 g/dL (33.0-37.0); MEAN PLATELET VOLUME 8.4 fl (7.2-11.7); MONO # 0.3 K/uL (0.0-0.8); MONO % 8.6 % (0.0-10.0); NEUT # 1.8 K/uL (1.8-7.0); NEUT % 54.5 % (50.0-75.0); NRBC % 0.2 % (0.0-0.0); RBC 4.36 Mil/uL (3.80-5.20); RED CELL DISTRIBUTION WIDTH 19.5 % (11.5-14.5); WHITE BLOOD COUNT 3.3 K/uL (4.8-10.8)
[2019-01-04 07:15] LABS: CALCIUM 9.2 mg/dL (8.4-10.2)
[2019-01-04] MEDS: Insulin Lispro (humaLOG) 100 Units/ml Inj SC SCH ×3 (07:30→17:21)
[2019-01-04] MEDS ORDERED: Patient's Own Med (Vilazodone Hcl [Viibryd] 20 mg) PO SCH (09:00)
[2019-01-04] MEDS: Insulin Detemir 100 Units/ml Inj SC SCH ×2 (09:26→22:16)
[2019-01-04] MEDS: Ranolazine 500 mg Extended Release Tablets PO SCH ×2 (11:10→22:12)
[2019-01-04] MEDS ORDERED: Potassium Chloride 20 mEq ER Tab PO ONE (11:24)
--- NOTE | 2019-01-04 11:28 | CP.PCM.PN ---
<Rosa Guzman - Last Filed: 01/04/19 15:59> Subjective - Date & Time of Evaluation Date of Evaluation: 01/04/19 Time of Evaluation: 09:10 - Subjective Subjective: Patient seen and examined at bedside. Patient still complaining of abdominal distention and pain. No events overnight. Has been afebrile since admission. Patient is scheduled for Paracentesis this morning by IR. Objective - Vital Signs/Intake and Output Vital Signs (last 24 hours): Temp Pulse Resp BP Pulse Ox 97.8 F 76 20 126/79 97 01/04/19 08:50 01/04/19 11:15 01/04/19 08:50 01/04/19 11:15 01/04/19 08:50 - Medications Medications: Current Medications Allopurinol (Zyloprim) 300 mg PO DAILY [facility] Last Admin: 01/04/19 11:18 Dose: 300 mg Clonidine HCl (Catapres) 0.2 mg PO Q12 [facility] Last Admin: 01/04/19 11:15 Dose: 0.2 mg Clopidogrel Bisulfate (Plavix) 75 mg PO DAILY [facility] Last Admin: 01/04/19 11:12 Dose: 75 mg Ergocalciferol (Drisdol 50,000 Intl Units Cap) 1 cap PO TH [facility] Famotidine (Pepcid) 20 mg PO BID [facility] Last Admin: 01/04/19 11:15 Dose: 20 mg Furosemide (Lasix) 40 mg PO DAILY [facility] Home Med (Vilazodone Hcl [Viibryd]) 20 mg PO DAILY [facility] Insulin Detemir (Levemir) 5 units SC Q12 [facility] Last Admin: 01/04/19 09:26 Dose: Not Given Insulin Human Lispro (Humalog) 6 units SC ACTID [facility] Last Admin: 01/04/19 07:30 Dose: Not Given Levothyroxine Sodium (Synthroid) 200 mcg PO DAILY@0630 [facility] Last Admin: 01/04/19 05:46 Dose: 200 mcg Loratadine (Claritin) 10 mg PO DAILY [facility] Last Admin: 01/04/19 11:13 Dose: 10 mg Metformin HCl (Glucophage) 500 mg PO BID [facility] Last Admin: 01/04/19 11:11 Dose: 500 mg Metoprolol Succinate (Toprol Xl) 100 mg PO DAILY [facility] Montelukast Sodium (Singulair) 10 mg PO HS [facility] Last Admin: 01/03/19 21:51 Dose: 10 mg Ranolazine (Ranexa) 500 mg PO Q12 [facility] Last Admin: 01/04/19 11:10 Dose: 500 mg Spironolactone (Aldactone) 50 mg PO BID [facility] Last Admin: 01/04/19 11:14 Dose: 50 mg Vitamin E (Vitamin E 400 Units Cap) 800 intlu PO QAM [facility] Last Admin: 01/04/19 11:20 Dose: 800 intlu Vitamin E (Vitamin E 400 Units Cap) 1,200 intlu PO HS [facility] Last Admin: 01/03/19 21:51 Dose: 1,200 intlu - Labs Labs: 01/04/19 06:35 01/04/19 06:35 PT 15.8 Seconds (9.8-13.1) H 01/03/19 17:05 INR 1.4 01/03/19 17:05 APTT 41.2 Seconds (25.6-37.1) H 01/03/19 17:05 - Skin Additional comments: Constitutional Appears: Non-toxic, No Acute Distress - ENT Exam ENT Exam: Mucous Membranes Dry - Respiratory Exam Respiratory Exam: Clear to Auscultation Bilateral, NORMAL BREATHING PATTERN - Cardiovascular Exam Cardiovascular Exam: REGULAR RHYTHM, +S1, +S2 - GI/Abdominal Exam GI & Abdominal Exam: Distended, Organomegaly. absent: Guarding, Rebound, Rigid - Extremities Exam Extremities exam: Negative for: calf tenderness - Neurological Exam Neurological exam: Alert, Oriented x3 - Psychiatric Exam Psychiatric exam: Normal Affect, Normal Mood - Skin Skin Exam: Dry, Intact, Normal Color Assessment and Plan - Assessment and Plan (Free Text) Assessment: 48 y/o F with extensive PMHx including Hepatic steatosis, recently diagnosed with Hepatic Cirrhosis, admitted with gradually worsening abdominal distension associated with dyspnea for possible paracentesis. Plan: Ascitis -likely 2/2 Hepatic cirrhosis -for Paracentesis today AM by IR -f/u BP after paracentesis -afebrile, no clinical evidence of SBP at this time -had an abdominal CT scan done on 12/28/18 which reported : Hepatic cirrhosis , increasing ascitis. -CBC, CMP, PT/PTT reviewed -c/w furosemide and spironolactone -Dr. Wolf spoke with Dr. Zepeda( IR air support operations operator) because patient is taking plavix. Per IR if coagulation panel is WNL patient could undergo Paracentesis -Send for ascitis fluid analysis -IR consult for paracentesis -Conflicts Analyst: Dr. Corley was consulted. Recommendations are appreciated Azotemia -BUN/Cr: 33/1.4 -likely 2/2 diuresis -will decrease furosemide from 40 mg BID to daily -f/u repeat BMP Hypokalemia -mild -replace with KCL 20 meq once -f/u repeat BMP Left adnexal mass Patient states she had Ovarian CA work up done as outpatient by her Hem/ONc, Dr. Manisha Kincaid, and there is no evidence of malignancy. c/w follow up as outpatient with Dr. Manisha Kincaid Hypertension controlled - Resume home meds CAD -controlled -Resume home meds IDDM - c/w home treatment - Insulin coverage scale; hypoglycemia protocol Hypothyroidism - Resume levothyroxine 200 mcg daily History of TIA - Resume plavix Anxiety - Home med xanax 0.25 mg HS PRN ordered Gout - Resume home med allopurinol Allergies - Resume home med montelukast DVT prophylaxis SCDS for now <Dimitris Wolf D - Last Filed: 01/04/19 16:58> Objective - Vital Signs/Intake and Output Vital Signs (last 24 hours): Temp Pulse Resp BP Pulse Ox 97.6 F 70 18 133/66 95 01/04/19 15:58 01/04/19 15:58 01/04/19 15:58 01/04/19 15:58 01/04/19 15:58 - Medications Medications: Current Medications Albumin Human (Albumin Human 25% (12.5 Gm/50 Ml)) 25 gm IV Q6 [facility] Stop: 01/05/19 10:01 Allopurinol (Zyloprim) 300 mg PO DAILY [facility] Last Admin: 01/04/19 11:18 Dose: 300 mg Clonidine HCl (Catapres) 0.2 mg PO Q12 [facility] Last Admin: 01/04/19 11:15 Dose: 0.2 mg Clopidogrel Bisulfate (Plavix) 75 mg PO DAILY [facility] Last Admin: 01/04/19 11:12 Dose: 75 mg Ergocalciferol (Drisdol 50,000 Intl Units Cap) 1 cap PO TH [facility] Famotidine (Pepcid) 20 mg PO BID [facility] Last Admin: 01/04/19 11:15 Dose: 20 mg Furosemide (Lasix) 80 mg PO DAILY [facility] Home Med (Vilazodone Hcl [Viibryd]) 20 mg PO DAILY [facility] Insulin Detemir (Levemir) 5 units SC Q12 [facility] Last Admin: 01/04/19 09:26 Dose: Not Given Insulin Human Lispro (Humalog) 6 units SC ACTID [facility] Last Admin: 01/04/19 13:23 Dose: Not Given Levothyroxine Sodium (Synthroid) 200 mcg PO DAILY@0630 [facility] Last Admin: 01/04/19 05:46 Dose: 200 mcg Loratadine (Claritin) 10 mg PO DAILY [facility] Last Admin: 01/04/19 11:13 Dose: 10 mg Metformin HCl (Glucophage) 500 mg PO BID [facility] Last Admin: 01/04/19 11:11 Dose: 500 mg Metoprolol Succinate (Toprol Xl) 100 mg PO DAILY [facility] Last Admin: 01/04/19 13:31 Dose: 100 mg Montelukast Sodium (Singulair) 10 mg PO [facility] Last Admin: 01/03/19 21:51 Dose: 10 mg Ranolazine (Ranexa) 500 mg PO Q12 [facility] Last Admin: 01/04/19 11:10 Dose: 500 mg Spironolactone (Aldactone) 150 mg PO DAILY [facility] Vitamin E (Vitamin E 400 Units Cap) 800 intlu PO QAM [facility] Last Admin: 01/04/19 11:20 Dose: 800 intlu Vitamin E (Vitamin E 400 Units Cap) 1,200 intlu PO [facility] Last Admin: 01/03/19 21:51 Dose: 1,200 intlu - Labs Labs: 01/04/19 06:35 01/04/19 06:35 PT 15.8 Seconds (9.8-13.1) H 01/03/19 17:05 INR 1.4 01/03/19 17:05 APTT 41.2 Seconds (25.6-37.1) H 01/03/19 17:05 Attending/Attestation - Attestation I have personally seen and examined this patient.: Yes I have fully participated in the care of the patient.: Yes I have reviewed all pertinent clinical information, including history, physical exam and plan: Yes Notes (Text): 01/04/19 16:57 Patient seen and examined with resident. Case discussed and agreed with assessment and plan. IR able to drain 2.3 liters of clear yellow fluid.
--- NOTE | 2019-01-04 11:46 | CP.PCM.CON ---
<Lester Frankel - Last Filed: 01/04/19 12:04> History of Present Illness - History of Present Illness History of Present Illness: P Surgery Consult Note for Dr. Fan Reason for consult: ascites, liver cirrhosis 48 F with PMH that includes liver cirrhosis, ascites, DENNIS, CAD, IDDM II with diabetic neuropathy, hypertension, anemia presented to [facility] with complaint of increasing abdominal girth and progressive shortness of breath. Patient seen and examined on the med/surg floor. Patient reports that symptoms have been going on for at least 2 weeks. She was recently diagnosed with Liver Cirrhosis by Dr. Fan. Patient had a CT abd/pelvis performed on 12/28/18 which shows increa sing ascites (see full report). PMD: Dr. Granados GI: Dr. Acosta Radio Communications Mechanician: Dr. Kinjal Kincaid Enterprise Security Architect Dr. Manisha Kincaid Elevator Erector Helper: Dr. 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, D&C x 3 ALL: Cipro, Codine, Iodine contrast, PCN, Amlodipine, Reglan, Sulfa, Kiwi, Tomato, mustard Past Patient History - Infectious Disease Hx of Infectious Diseases: None - Past Medical History & Family History Past Medical History?: Yes - Past Social History Smoking Status: Never Smoked - CARDIAC Hx Cardiac Disorders: Yes Hx Congestive Heart Failure: Yes Hx Hypercholesterolemia: Yes Hx Hypertension: Yes Hx Peripheral Edema: Yes - PULMONARY Hx Respiratory Disorders: Yes Hx Asthma: Yes Hx Bronchitis: Yes Hx Pneumonia: Yes Hx Pulmonary Embolism: Yes Hx Sleep Apnea: Yes (use c-pap @ home) - NEUROLOGICAL Hx Neurological Disorder: Yes Hx Transient Ischemic Attacks (TIA): Yes (x2) - HEENT Hx HEENT Problems: Yes Hx Blind: Yes (right eye) - RENAL Hx Chronic Kidney Disease: No - ENDOCRINE/METABOLIC Hx Endocrine Disorders: Yes Hx Diabetes Mellitus Type 2: Yes Hx Hypothyroidism: Yes - HEMATOLOGICAL/ONCOLOGICAL Hx Blood Disorders: Yes Hx Anemia: Yes Hx Cancer: Yes Hx Cirrhosis: Yes - INTEGUMENTARY Hx Dermatological Problems: Yes Other/Comment: peripheral edema - MUSCULOSKELETAL/RHEUMATOLOGICAL Hx Arthritis: Yes Hx Falls: No Hx Fractures: Yes Hx Osteoporosis: Yes - GASTROINTESTINAL Hx Gastrointestinal Disorders: Yes Hx Fatty Liver Disease: Yes Hx Gastroesophageal Reflux: Yes Hx Hemorrhoids: Yes Other/Comment: attempted lap band. gastroparesis- morbid obesity - GENITOURINARY/GYNECOLOGICAL Hx Genitourinary Disorders: No - PSYCHIATRIC Hx Psychophysiologic Disorder: Yes Hx Anxiety: Yes Hx Depression: Yes Hx Substance Use: No - SURGICAL HISTORY Hx Appendectomy: No Hx Cholecystectomy: No Hx Coronary Stent: Yes (x4) Hx Dilation and Curettage: Yes Hx Eye Surgery: Yes (right eye) Hx Tonsillectomy: Yes - ANESTHESIA Hx Anesthesia: Yes Hx Anesthesia Reactions: Yes (takes pre-meds prior to anesthesia) Meds Allergies/Adverse Reactions: Allergies Allergy/AdvReac Type Severity Reaction Status Date / Time amlodipine [From Norvasc] Allergy RASH Verified 10/20/18 08:13 ciprofloxacin [From Cipro] Allergy NAUSEA Verified 12/21/18 12:28 codeine Allergy FATIGUE Verified 12/21/18 12:28 Iodinated Contrast- Oral and Allergy RASH Verified 12/21/18 12:28 IV Dye kiwi Allergy RASH Verified 12/21/18 12:28 mustard Allergy RASH Verified 12/21/18 12:28 Penicillins Allergy ANAPHYLAXIS Verified 12/21/18 12:28 pepper (genus Capsicum) Allergy RASH Verified 12/21/18 12:28 [pepper] Sulfa (Sulfonamide Allergy RASH Verified 12/21/18 12:28 Antibiotics) tomato Allergy RASH Verified 12/21/18 12:28 metoclopramide HCl AdvReac DIZZINESS Verified 12/21/18 12:28 [From Reglan] filberts Allergy SWELLING Uncoded 12/21/18 12:28 IV CONTRAST Allergy RASH Uncoded 12/21/18 12:28 - Medications Medications: Current Medications Allopurinol (Zyloprim) 300 mg PO DAILY [facility] Last Admin: 01/04/19 11:18 Dose: 300 mg Clonidine HCl (Catapres) 0.2 mg PO Q12 [facility] Last Admin: 01/04/19 11:15 Dose: 0.2 mg Clopidogrel Bisulfate (Plavix) 75 mg PO DAILY [facility] Last Admin: 01/04/19 11:12 Dose: 75 mg Ergocalciferol (Drisdol 50,000 Intl Units Cap) 1 cap PO TH [facility] Famotidine (Pepcid) 20 mg PO BID [facility] Last Admin: 01/04/19 11:15 Dose: 20 mg Furosemide (Lasix) 40 mg PO DAILY [facility] Home Med (Vilazodone Hcl [Viibryd]) 20 mg PO DAILY [facility] Insulin Detemir (Levemir) 5 units SC Q12 [facility] Last Admin: 01/04/19 09:26 Dose: Not Given Insulin Human Lispro (Humalog) 6 units SC ACTID [facility] Last Admin: 01/04/19 07:30 Dose: Not Given Levothyroxine Sodium (Synthroid) 200 mcg PO DAILY@0630 [facility] Last Admin: 01/04/19 05:46 Dose: 200 mcg Loratadine (Claritin) 10 mg PO DAILY [facility] Last Admin: 01/04/19 11:13 Dose: 10 mg Metformin HCl (Glucophage) 500 mg PO BID [facility] Last Admin: 01/04/19 11:11 Dose: 500 mg Metoprolol Succinate (Toprol Xl) 100 mg PO DAILY [facility] Montelukast Sodium (Singulair) 10 mg PO [facility] Last Admin: 01/03/19 21:51 Dose: 10 mg Ranolazine (Ranexa) 500 mg PO Q12 [facility] Last Admin: 01/04/19 11:10 Dose: 500 mg Spironolactone (Aldactone) 50 mg PO BID [facility] Last Admin: 01/04/19 11:14 Dose: 50 mg Vitamin E (Vitamin E 400 Units Cap) 800 intlu PO QAM [facility] Last Admin: 01/04/19 11:20 Dose: 800 intlu Vitamin E (Vitamin E 400 Units Cap) 1,200 intlu PO HS [facility] Last Admin: 01/03/19 21:51 Dose: 1,200 intlu Results - Vital Signs Recent Vital Signs: Last Vital Signs Temp 97.8 F 01/04/19 08:50 Pulse 76 01/04/19 11:15 Resp 20 01/04/19 08:50 BP 126/79 01/04/19 11:15 Pulse Ox 97 01/04/19 08:50 - Labs Result Diagrams: 01/04/19 06:35 01/04/19 06:35 Labs: Laboratory Results - last 24 hr 04/01/19 04/01/19 04/01/19 16:00 17:05 17:05 WBC 4.7 L 3.9 L RBC 4.85 4.62 Hgb 13.1 12.6 Hct 40.7 38.7 MCV 84.0 83.6 MCH 27.0 27.3 MCHC 32.1 L 32.7 L RDW 19.6 H 19.6 H Plt Count 109 L 104 L MPV 8.5 8.9 Neut % (Auto) 57.1 55.5 Lymph % (Auto) 31.4 32.4 [place] % (Auto) 7.8 7.2 Eos % (Auto) 2.3 2.6 Baso % (Auto) 1.4 2.3 H Neut # (Auto) 2.7 2.2 Lymph # (Auto) 1.5 1.3 [place] # (Auto) 0.4 0.3 Eos # (Auto) 0.1 0.1 Baso # (Auto) 0.1 0.1 PT INR APTT Sodium 138 Potassium 3.8 Chloride 99 Carbon Dioxide 28 Anion Gap 15 BUN 33 H Creatinine 1.2 Est GFR ( Amer) 58 Est GFR (Non-Af Amer) 48 POC Glucose (mg/dL) Random Glucose 80 Calcium 9.7 Total Bilirubin 1.1 AST 69 H ALT 40 Alkaline Phosphatase 91 Total Protein 7.2 Albumin 3.4 L Globulin 3.8 Albumin/Globulin Ratio 0.9 L Urine HCG, Qual 01/03/19 01/03/19 01/03/19 17:05 21:30 22:41 WBC RBC Hgb Hct MCV MCH MCHC RDW Plt Count MPV Neut % (Auto) Lymph % (Auto) [place] % (Auto) Eos % (Auto) Baso % (Auto) Neut # (Auto) Lymph # (Auto) [place] # (Auto) Eos # (Auto) Baso # (Auto) PT 15.8 H INR 1.4 APTT 41.2 H Sodium Potassium Chloride Carbon Dioxide Anion Gap BUN Creatinine Est GFR ( Amer) Est GFR (Non-Af Amer) POC Glucose (mg/dL) 137 H Random Glucose Calcium Total Bilirubin AST ALT Alkaline Phosphatase Total Protein Albumin Globulin Albumin/Globulin Ratio Urine HCG, Qual Negative 01/04/19 01/04/19 01/04/19 05:09 06:35 06:35 WBC 3.3 L RBC 4.36 Hgb 11.9 L Hct 36.6 MCV 84.1 MCH 27.4 MCHC 32.6 L RDW 19.5 H Plt Count 103 L MPV 8.4 Neut % (Auto) 54.5 Lymph % (Auto) 31.5 [place] % (Auto) 8.6 Eos % (Auto) 3.3 Baso % (Auto) 2.1 H Neut # (Auto) 1.8 Lymph # (Auto) 1.1 [place] # (Auto) 0.3 Eos # (Auto) 0.1 Baso # (Auto) 0.1 PT INR APTT Sodium 140 Potassium 3.5 L Chloride 100 Carbon Dioxide 30 Anion Gap 14 BUN 33 H Creatinine 1.4 H Est GFR ( Amer) 49 Est GFR (Non-Af Amer) 40 POC Glucose (mg/dL) 101 Random Glucose 80 Calcium 9.2 Total Bilirubin AST ALT Alkaline Phosphatase Total Protein Albumin Globulin Albumin/Globulin Ratio Urine HCG, Qual 01/04/19 11:00 WBC RBC Hgb Hct MCV MCH MCHC RDW Plt Count MPV Neut % (Auto) Lymph % (Auto) [place] % (Auto) Eos % (Auto) Baso % (Auto) Neut # (Auto) Lymph # (Auto) [place] # (Auto) Eos # (Auto) Baso # (Auto) PT INR APTT Sodium Potassium Chloride Carbon Dioxide Anion Gap BUN Creatinine Est GFR ( Amer) Est GFR (Non-Af Amer) POC Glucose (mg/dL) 95 Random Glucose Calcium Total Bilirubin AST ALT Alkaline Phosphatase Total Protein Albumin Globulin Albumin/Globulin Ratio Urine HCG, Qual <MengEsteban N - Last Filed: 01/04/19 13:29> History of Present Illness - History of Present Illness History of Present Illness: All medical record entries made by the resident were at my direction. I have reviewed the chart and agree that the record accurately reflects my personal performance of the history, physical exam, and medical decision making. Recommend: albumin 50cc 25% IV q6hr x 4 doses Increase spironolactone to 150 mg daily Increase furosemide to 80 mg daily strict I & Os daily weight paracentesis 4-6 liters, no more than 6 liters Meds - Medications Medications: Current Medications Albumin Human (Albumin Human 25% (12.5 Gm/50 Ml)) 25 gm IV Q6 [facility] Stop: 01/05/19 10:01 Allopurinol (Zyloprim) 300 mg PO DAILY [facility] Last Admin: 01/04/19 11:18 Dose: 300 mg Clonidine HCl (Catapres) 0.2 mg PO Q12 [facility] Last Admin: 01/04/19 11:15 Dose: 0.2 mg Clopidogrel Bisulfate (Plavix) 75 mg PO DAILY [facility] Last Admin: 01/04/19 11:12 Dose: 75 mg Ergocalciferol (Drisdol 50,000 Intl Units Cap) 1 cap PO TH [facility] Famotidine (Pepcid) 20 mg PO BID [facility] Last Admin: 01/04/19 11:15 Dose: 20 mg Furosemide (Lasix) 80 mg PO DAILY [facility] Home Med (Vilazodone Hcl [Viibryd]) 20 mg PO DAILY [facility] Insulin Detemir (Levemir) 5 units SC Q12 [facility] Last Admin: 01/04/19 09:26 Dose: Not Given Insulin Human Lispro (Humalog) 6 units SC ACTID [facility] Last Admin: 01/04/19 13:23 Dose: Not Given Levothyroxine Sodium (Synthroid) 200 mcg PO DAILY@0630 [facility] Last Admin: 01/04/19 05:46 Dose: 200 mcg Loratadine (Claritin) 10 mg PO DAILY [facility] Last Admin: 01/04/19 11:13 Dose: 10 mg Metformin HCl (Glucophage) 500 mg PO BID [facility] Last Admin: 01/04/19 11:11 Dose: 500 mg Metoprolol Succinate (Toprol Xl) 100 mg PO DAILY [facility] Montelukast Sodium (Singulair) 10 mg PO [facility] Last Admin: 01/03/19 21:51 Dose: 10 mg Ranolazine (Ranexa) 500 mg PO Q12 [facility] Last Admin: 01/04/19 11:10 Dose: 500 mg Spironolactone (Aldactone) 150 mg PO DAILY [facility] Vitamin E (Vitamin E 400 Units Cap) 800 intlu PO QAM [facility] Last Admin: 01/04/19 11:20 Dose: 800 intlu Vitamin E (Vitamin E 400 Units Cap) 1,200 intlu PO HS [facility] Last Admin: 01/03/19 21:51 Dose: 1,200 intlu Results - Vital Signs Recent Vital Signs: Last Vital Signs Temp 98.2 F 01/04/19 12:32 Pulse 76 01/04/19 12:32 Resp 18 04/02/19 12:32 BP 144/83 01/04/19 12:32 Pulse Ox 99 01/04/19 12:32 - Labs Result Diagrams: 01/04/19 06:35 01/04/19 06:35 Labs: Laboratory Results - last 24 hr 01/03/19 01/03/19 01/03/19 16:00 17:05 17:05 WBC 4.7 L 3.9 L RBC 4.85 4.62 Hgb 13.1 12.6 Hct 40.7 38.7 MCV 84.0 83.6 MCH 27.0 27.3 MCHC 32.1 L 32.7 L RDW 19.6 H 19.6 H Plt Count 109 L 104 L MPV 8.5 8.9 Neut % (Auto) 57.1 55.5 Lymph % (Auto) 31.4 32.4 [place] % (Auto) 7.8 7.2 Eos % (Auto) 2.3 2.6 Baso % (Auto) 1.4 2.3 H Neut # (Auto) 2.7 2.2 Lymph # (Auto) 1.5 1.3 [place] # (Auto) 0.4 0.3 Eos # (Auto) 0.1 0.1 Baso # (Auto) 0.1 0.1 PT INR APTT Sodium 138 Potassium 3.8 Chloride 99 Carbon Dioxide 28 Anion Gap 15 BUN 33 H Creatinine 1.2 Est GFR ( Amer) 58 Est GFR (Non-Af Amer) 48 POC Glucose (mg/dL) Random Glucose 80 Calcium 9.7 Total Bilirubin 1.1 AST 69 H ALT 40 Alkaline Phosphatase 91 Total Protein 7.2 Albumin 3.4 L Globulin 3.8 Albumin/Globulin Ratio 0.9 L Urine HCG, Qual Fluid Source Fluid Total Protein Fluid LDH 01/03/19 01/03/19 01/03/19 17:05 21:30 22:41 WBC RBC Hgb Hct MCV MCH MCHC RDW Plt Count MPV Neut % (Auto) Lymph % (Auto) [place] % (Auto) Eos % (Auto) Baso % (Auto) Neut # (Auto) Lymph # (Auto) [place] # (Auto) Eos # (Auto) Baso # (Auto) PT 15.8 H INR 1.4 APTT 41.2 H Sodium Potassium Chloride Carbon Dioxide Anion Gap BUN Creatinine Est GFR ( Amer) Est GFR (Non-Af Amer) POC Glucose (mg/dL) 137 H Random Glucose Calcium Total Bilirubin AST ALT Alkaline Phosphatase Total Protein Albumin Globulin Albumin/Globulin Ratio Urine HCG, Qual Negative Fluid Source Fluid Total Protein Fluid LDH 01/04/19 01/04/19 01/04/19 05:09 06:35 06:35 WBC 3.3 L RBC 4.36 Hgb 11.9 L Hct 36.6 MCV 84.1 MCH 27.4 MCHC 32.6 L RDW 19.5 H Plt Count 103 L MPV 8.4 Neut % (Auto) 54.5 Lymph % (Auto) 31.5 [place] % (Auto) 8.6 Eos % (Auto) 3.3 Baso % (Auto) 2.1 H Neut # (Auto) 1.8 Lymph # (Auto) 1.1 [place] # (Auto) 0.3 Eos # (Auto) 0.1 Baso # (Auto) 0.1 PT INR APTT Sodium 140 Potassium 3.5 L Chloride 100 Carbon Dioxide 30 Anion Gap 14 BUN 33 H Creatinine 1.4 H Est GFR ( Amer) 49 Est GFR (Non-Af Amer) 40 POC Glucose (mg/dL) 101 Random Glucose 80 Calcium 9.2 Total Bilirubin AST ALT Alkaline Phosphatase Total Protein Albumin Globulin Albumin/Globulin Ratio Urine HCG, Qual Fluid Source Fluid Total Protein Fluid LDH 01/04/19 01/04/19 01/04/19 11:00 12:24 12:24 WBC RBC Hgb Hct MCV MCH MCHC RDW Plt Count MPV Neut % (Auto) Lymph % (Auto) [place] % (Auto) Eos % (Auto) Baso % (Auto) Neut # (Auto) Lymph # (Auto) [place] # (Auto) Eos # (Auto) Baso # (Auto) PT INR APTT Sodium Potassium Chloride Carbon Dioxide Anion Gap BUN Creatinine Est GFR ( Amer) Est GFR (Non-Af Amer) POC Glucose (mg/dL) 95 Random Glucose Calcium Total Bilirubin AST ALT Alkaline Phosphatase Total Protein Albumin Globulin Albumin/Globulin Ratio Urine HCG, Qual Fluid Source Peritoneal/ascites Fluid Total Protein < 2.0 Fluid LDH 179 01/04/19 13:10 WBC RBC Hgb Hct MCV MCH MCHC RDW Plt Count MPV Neut % (Auto) Lymph % (Auto) [place] % (Auto) Eos % (Auto) Baso % (Auto) Neut # (Auto) Lymph # (Auto) [place] # (Auto) Eos # (Auto) Baso # (Auto) PT INR APTT Sodium Potassium Chloride Carbon Dioxide Anion Gap BUN Creatinine Est GFR ( Amer) Est GFR (Non-Af Amer) POC Glucose (mg/dL) 121 H Random Glucose Calcium Total Bilirubin AST ALT Alkaline Phosphatase Total Protein Albumin Globulin Albumin/Globulin Ratio Urine HCG, Qual Fluid Source Fluid Total Protein Fluid LDH
[2019-01-04] MEDS ORDERED: Lidocaine Hydrochloride 5 ML INJ ONE (11:55)
[2019-01-04 12:26] LABS: BODY FLUID TYPE PERITONEAL/ASCITES
[2019-01-04 12:51] LABS: TOTAL PROTEIN,BODY FLUID < 2.0 g/dL (NONE ESTABLISHED)
--- NOTE | 2019-01-04 13:00 | PCM.SURG1 ---
Surgeon's Initial Post Op Note - Surgeon's Notes Surgeon: Blake Zepeda MD Slab Lifting Engineer: NONE Type of Anesthesia: Local Pre-Operative Diagnosis: Cirrhosis, ascites Operative Findings: US showed a small amount of ascites Post-Operative Diagnosis: Cirrhosis, ascites Operation Performed: US guided paracentesis Specimen/Specimens Removed: 2.3 liters of clear yellow fluid Estimated Blood Loss: EBL {In ML}: 0 Blood Products Given: N/A Drains Used: No Drains Post-Op Condition: Fair Date of Surgery/Procedure: 01/04/19 Time of Surgery/Procedure: 12:45
--- NOTE | 2019-01-04 13:00 | US ---
Date of Procedure: 01/04/2019 PROCEDURE: Ultrasound-guided paracentesis, CPT 89600 Medications: 7 cc 1% Lidocaine HISTORY: Ascites, abdominal pain, cirrhosis TECHNIQUE: Following informed consent , the patient was placed supine on the stretcher and the site was marked. A limited abdominal ultrasound was performed that showed a small amount of intra-abdominal fluid. Procedural time out was called and the Pt's abdomen was marked and prepped and draped in the usual sterile fashion. Ultrasound-guided large volume paracentesis performed. A total of 2.3 Liters of straw colored fluid was removed without complication. IMPRESSION: Ultrasound-guided paracentesis.
[2019-01-04] MEDS: Metoprolol Succinate 100 mg XL Tab PO SCH (13:31)
[2019-01-04 13:45] LABS: BF GROSS APPEARANCE CLOUDY (CLEAR)
[2019-01-04 15:26] LABS: BODY FLUID MONO/MACROPHAGE 46 % (0-0)
[2019-01-04 15:30] LABS: BODY FLUID TOTAL COUNT 100 (0-0)
[2019-01-04] MEDS: Albumin Human 25% (12.5 gm/50 ml) IV SCH ×2 (18:26→22:07)
[2019-01-05 00:01] VITALS: RESP 19
[2019-01-05] MEDS: Albumin Human 25% (12.5 gm/50 ml) IV SCH ×2 (04:31→10:23)
[2019-01-05] MEDS: Levothyroxine 200 MCG TAB PO SCH (06:27)
[2019-01-05 06:36] LABS: INR 1.5; PROTHROMBIN TIME 17.3 Seconds (9.8-13.1)
[2019-01-05 06:39] LABS: PARTIAL THROMBOPLASTIN TIME 38.9 Seconds (25.6-37.1)
[2019-01-05 06:54] LABS: ALB/GLOB RATIO 1.2 (1.0-2.1); ALBUMIN 3.6 g/dL (3.5-5.0); CALCIUM 9.4 mg/dL (8.4-10.2)
[2019-01-05 07:01] LABS: BASO # 0.1 K/uL (0.0-0.2); BASO % 2.4 % (0.0-2.0); EOS # 0.1 K/uL (0.0-0.7); EOS % 3.6 % (0.0-4.0); HEMOGLOBIN 10.8 g/dL (12.0-16.0); LYMPH # 0.9 K/uL (1.0-4.3); LYMPH % 33.2 % (20.0-40.0); MEAN CELL VOLUME 84.2 fl (81.0-99.0); MEAN CORPUSCULAR HEMOGLOBIN 27.5 pg (27.0-31.0); MEAN CORPUSCULAR HGB CONC 32.6 g/dL (33.0-37.0); MEAN PLATELET VOLUME 8.2 fl (7.2-11.7); MONO # 0.2 K/uL (0.0-0.8); MONO % 8.7 % (0.0-10.0); NEUT # 1.4 K/uL (1.8-7.0); NEUT % 52.1 % (50.0-75.0); NRBC % 0.3 % (0.0-0.0); RBC 3.94 Mil/uL (3.80-5.20); RED CELL DISTRIBUTION WIDTH 19.4 % (11.5-14.5); WHITE BLOOD COUNT 2.6 K/uL (4.8-10.8)
[2019-01-05 07:36] VITALS: BP 151/75; PULSE 79; TEMP 97.5; O2SAT 96
[2019-01-05] MEDS: Insulin Lispro (humaLOG) 100 Units/ml Inj SC SCH ×2 (08:32→13:40)
--- NOTE | 2019-01-05 09:47 | CP.PCM.CON ---
History of Present Illness - History of Present Illness History of Present Illness: This 48-year-old morbidly obese female is well-known to me over last 6 years. 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 She is a type I diabetic with vascular disease which has manifested itself in the form of an acute myocardial infarction in 2004 and required stenting of coronary arteries in 2007 and 2009. She has multiple medical issues which include depression as well as asthma she has had obstructive sleep apnea for which she uses a CPAP machine at home. She has had iron deficiency anemia requiring repeated iron infusions. She was found to have cirrhosis of the liver in October of this year when she was hospitalized with GI issues. Now she is hospitalized for a peritoneal tap which she successfully underwent yesterday. She has had significant left ventricular diastolic dysfunction and has required chronic use of furosemide. She was started on Spironolactone after discovery of cirrhosis of the liver. Since October she has gone on a very strict low-carb diet losing approximately 29 pounds in the process. This has required reducing her dose of antidiabetics. Physical examination shows an overweight middle aged female who is able to lie virtually flat in bed and breathe comfortably at 16 breaths/min and carry on a conversation. Her heart rate was 74 bpm regular and her blood pressure was 124/74 mmHg. Her jugular venous pressure was not elevated and there was no edema over the lower extremities. Her pedal pulses were feeble but distinctly present. Her extremities were warm and nailbeds were pink. There was no central or peripheral cyanosis. There was no clubbing. Her abdomen was quite protuberant and organomegaly could not be ascertained. The apex was not palpable the first and second heart sounds were normal there was a very brief ejection systolic murmur there was no gallop rhythm there were no rales. Her electrocardiogram shows sinus rhythm with a left bundle branch block which is old finding. An echocardiogram in October of this year showed abnormal septal motion because of left bundle branch block but otherwise left ventricular systolic function was preserved there was diastolic dysfunction of the left ventricle. Her lab data was noted. The patient displayed pancytopenia as a consequence of splenomegaly. Her BUN and creatinine as well as potassium were stable serum albumin level was 3.6 g. AST and ALT are mostly normal. Impression: Stable coronary artery disease in a morbidly obese patient with type 1 diabetes and obstructive sleep apnea. History of myocardial infarction and coronary stenting more than 10 years back. Cirrhosis of the liver with splenomegaly and pancytopenia with ascites which was tapped. The patient is stable from cardiovascular point of view and may be allowed to return home to be managed as an outpatient. Past Patient History - Infectious Disease Hx of Infectious Diseases: None - Past Medical History & Family History Past Medical History?: Yes - Past Social History Smoking Status: Never Smoked - CARDIAC Hx Cardiac Disorders: Yes Hx Congestive Heart Failure: Yes Hx Hypercholesterolemia: Yes Hx Hypertension: Yes Hx Peripheral Edema: Yes - PULMONARY Hx Respiratory Disorders: Yes Hx Asthma: Yes Hx Bronchitis: Yes Hx Pneumonia: Yes Hx Pulmonary Embolism: Yes Hx Sleep Apnea: Yes (use c-pap @ home) - NEUROLOGICAL Hx Neurological Disorder: Yes Hx Transient Ischemic Attacks (TIA): Yes (x2) - HEENT Hx HEENT Problems: Yes Hx Blind: Yes (right eye) - RENAL Hx Chronic Kidney Disease: No - ENDOCRINE/METABOLIC Hx Endocrine Disorders: Yes Hx Diabetes Mellitus Type 2: Yes Hx Hypothyroidism: Yes - HEMATOLOGICAL/ONCOLOGICAL Hx Blood Disorders: Yes Hx Anemia: Yes Hx Cancer: Yes Hx Cirrhosis: Yes - INTEGUMENTARY Hx Dermatological Problems: Yes Other/Comment: peripheral edema - MUSCULOSKELETAL/RHEUMATOLOGICAL Hx Arthritis: Yes Hx Falls: No Hx Fractures: Yes Hx Osteoporosis: Yes - GASTROINTESTINAL Hx Gastrointestinal Disorders: Yes Hx Fatty Liver Disease: Yes Hx Gastroesophageal Reflux: Yes Hx Hemorrhoids: Yes Other/Comment: attempted lap band. gastroparesis- morbid obesity - GENITOURINARY/GYNECOLOGICAL Hx Genitourinary Disorders: No - PSYCHIATRIC Hx Psychophysiologic Disorder: Yes Hx Anxiety: Yes Hx Depression: Yes Hx Substance Use: No - SURGICAL HISTORY Hx Appendectomy: No Hx Cholecystectomy: No Hx Coronary Stent: Yes (x4) Hx Dilation and Curettage: Yes Hx Eye Surgery: Yes (right eye) Hx Tonsillectomy: Yes - ANESTHESIA Hx Anesthesia: Yes Hx Anesthesia Reactions: Yes (takes pre-meds prior to anesthesia) Meds Allergies/Adverse Reactions: Allergies Allergy/AdvReac Type Severity Reaction Status Date / Time amlodipine [From Norvasc] Allergy RASH Verified 10/20/18 08:13 ciprofloxacin [From Cipro] Allergy NAUSEA Verified 12/21/18 12:28 codeine Allergy FATIGUE Verified 12/21/18 12:28 Iodinated Contrast- Oral and Allergy RASH Verified 12/21/18 12:28 IV Dye kiwi Allergy RASH Verified 12/21/18 12:28 mustard Allergy RASH Verified 12/21/18 12:28 Penicillins Allergy ANAPHYLAXIS Verified 12/21/18 12:28 pepper (genus Capsicum) Allergy RASH Verified 12/21/18 12:28 [pepper] Sulfa (Sulfonamide Allergy RASH Verified 12/21/18 12:28 Antibiotics) tomato Allergy RASH Verified 12/21/18 12:28 metoclopramide HCl AdvReac DIZZINESS Verified 12/21/18 12:28 [From Reglan] filberts Allergy SWELLING Uncoded 12/21/18 12:28 IV CONTRAST Allergy RASH Uncoded 12/21/18 12:28 - Medications Medications: Current Medications Albumin Human (Albumin Human 25% (12.5 Gm/50 Ml)) 25 gm IV Q6 [facility] Stop: 01/05/19 10:01 Last Admin: 01/05/19 04:31 Dose: 25 gm Allopurinol (Zyloprim) 300 mg PO DAILY [facility] Last Admin: 01/04/19 11:18 Dose: 300 mg Clonidine HCl (Catapres) 0.2 mg PO Q12 [facility] Last Admin: 01/04/19 22:11 Dose: 0.2 mg Clopidogrel Bisulfate (Plavix) 75 mg PO DAILY [facility] Last Admin: 01/04/19 11:12 Dose: 75 mg Ergocalciferol (Drisdol 50,000 Intl Units Cap) 1 cap PO TH [facility] Famotidine (Pepcid) 20 mg PO BID [facility] Last Admin: 01/04/19 17:18 Dose: 20 mg Furosemide (Lasix) 80 mg PO DAILY [facility] Home Med (Vilazodone Hcl [Viibryd]) 20 mg PO DAILY [facility] Insulin Detemir (Levemir) 5 units SC Q12 [facility] Last Admin: 01/04/19 22:16 Dose: 5 u Insulin Human Lispro (Humalog) 6 units SC ACTID [facility] Last Admin: 01/05/19 08:32 Dose: Not Given Levothyroxine Sodium (Synthroid) 200 mcg PO DAILY@0630 [facility] Last Admin: 01/05/19 06:27 Dose: 200 mcg Loratadine (Claritin) 10 mg PO DAILY [facility] Last Admin: 01/04/19 11:13 Dose: 10 mg Metformin HCl (Glucophage) 500 mg PO BID [facility] Last Admin: 01/04/19 17:17 Dose: 500 mg Metoprolol Succinate (Toprol Xl) 100 mg PO DAILY [facility] Last Admin: 01/04/19 13:31 Dose: 100 mg Montelukast Sodium (Singulair) 10 mg PO HS [facility] Last Admin: 01/04/19 22:11 Dose: 10 mg Ranolazine (Ranexa) 500 mg PO Q12 [facility] Last Admin: 01/04/19 22:12 Dose: 500 mg Spironolactone (Aldactone) 150 mg PO DAILY [facility] Vitamin E (Vitamin E 400 Units Cap) 800 intlu PO QAM [facility] Last Admin: 01/04/19 11:20 Dose: 800 intlu Vitamin E (Vitamin E 400 Units Cap) 1,200 intlu PO HS [facility] Last Admin: 01/04/19 22:12 Dose: 1,200 intlu Results - Vital Signs Recent Vital Signs: Last Vital Signs Temp 97.5 F L 01/05/19 07:35 Pulse 79 01/05/19 07:35 Resp 19 01/05/19 07:35 BP 151/75 H 01/05/19 07:35 Pulse Ox 96 01/05/19 07:35 - Labs Result Diagrams: 01/05/19 05:50 01/05/19 05:50 Labs: Laboratory Results - last 24 hr 01/04/19 01/04/19 01/04/19 11:00 12:24 12:24 WBC RBC Hgb Hct MCV MCH MCHC RDW Plt Count MPV Neut % (Auto) Lymph % (Auto) [place] % (Auto) Eos % (Auto) Baso % (Auto) Neut # (Auto) Lymph # (Auto) [place] # (Auto) Eos # (Auto) Baso # (Auto) PT INR APTT Sodium Potassium Chloride Carbon Dioxide Anion Gap BUN Creatinine Est GFR ( Amer) Est GFR (Non-Af Amer) POC Glucose (mg/dL) 95 Random Glucose Calcium Phosphorus Magnesium Total Bilirubin AST ALT Alkaline Phosphatase Total Protein Albumin Globulin Albumin/Globulin Ratio Fluid Source Peritoneal/ascites Fluid Appearance Cloudy Fluid WBC 119.0 Fluid RBC 3861.0 H Fluid Tot Cell Count 100 H Fluid Neutrophils 5.0 H Fluid Lymphocytes 49.0 H Fld Monocyte/Macrophag 46 H Fluid Total Protein < 2.0 Fluid LDH 179 Fluid Comment Slightly bloody 01/04/19 01/04/19 01/04/19 13:10 15:46 21:21 WBC RBC Hgb Hct MCV MCH MCHC RDW Plt Count MPV Neut % (Auto) Lymph % (Auto) [place] % (Auto) Eos % (Auto) Baso % (Auto) Neut # (Auto) Lymph # (Auto) [place] # (Auto) Eos # (Auto) Baso # (Auto) PT INR APTT Sodium Potassium Chloride Carbon Dioxide Anion Gap BUN Creatinine Est GFR ( Amer) Est GFR (Non-Af Amer) POC Glucose (mg/dL) 121 H 161 H 85 Random Glucose Calcium Phosphorus Magnesium Total Bilirubin AST ALT Alkaline Phosphatase Total Protein Albumin Globulin Albumin/Globulin Ratio Fluid Source Fluid Appearance Fluid WBC Fluid RBC Fluid Tot Cell Count Fluid Neutrophils Fluid Lymphocytes Fld Monocyte/Macrophag Fluid Total Protein Fluid LDH Fluid Comment 01/05/19 01/05/19 01/05/19 05:31 05:50 05:50 WBC 2.6 L RBC 3.94 Hgb 10.8 L Hct 33.2 L MCV 84.2 MCH 27.5 MCHC 32.6 L RDW 19.4 H Plt Count 89 L MPV 8.2 Neut % (Auto) 52.1 Lymph % (Auto) 33.2 [place]gs % (Auto) 8.7 Eos % (Auto) 3.6 Baso % (Auto) 2.4 H Neut # (Auto) 1.4 L Lymph # (Auto) 0.9 L [place] # (Auto) 0.2 Eos # (Auto) 0.1 Baso # (Auto) 0.1 PT INR APTT Sodium 141 Potassium 3.8 Chloride 102 Carbon Dioxide 29 Anion Gap 14 BUN 32 H Creatinine 1.4 H Est GFR ( Amer) 49 Est GFR (Non-Af Amer) 40 POC Glucose (mg/dL) 91 Random Glucose 72 Calcium 9.4 Phosphorus 3.9 Magnesium 1.8 Total Bilirubin 0.9 AST 53 H D ALT 29 Alkaline Phosphatase 64 Total Protein 6.6 Albumin 3.6 Globulin 3.0 Albumin/Globulin Ratio 1.2 Fluid Source Fluid Appearance Fluid WBC Fluid RBC Fluid Tot Cell Count Fluid Neutrophils Fluid Lymphocytes Fld Monocyte/Macrophag Fluid Total Protein Fluid LDH Fluid Comment 01/05/19 01/05/19 05:50 07:28 WBC RBC Hgb Hct MCV MCH MCHC RDW Plt Count MPV Neut % (Auto) Lymph % (Auto) [place] % (Auto) Eos % (Auto) Baso % (Auto) Neut # (Auto) Lymph # (Auto) [place] # (Auto) Eos # (Auto) Baso # (Auto) PT 17.3 H INR 1.5 APTT 38.9 H Sodium Potassium Chloride Carbon Dioxide Anion Gap BUN Creatinine Est GFR ( Amer) Est GFR (Non-Af Amer) POC Glucose (mg/dL) 74 Random Glucose Calcium Phosphorus Magnesium Total Bilirubin AST ALT Alkaline Phosphatase Total Protein Albumin Globulin Albumin/Globulin Ratio Fluid Source Fluid Appearance Fluid WBC Fluid RBC Fluid Tot Cell Count Fluid Neutrophils Fluid Lymphocytes Fld Monocyte/Macrophag Fluid Total Protein Fluid LDH Fluid Comment
[2019-01-05] MEDS: Metoprolol Succinate 100 mg XL Tab PO SCH (10:36)
[2019-01-05] MEDS: Ranolazine 500 mg Extended Release Tablets PO SCH (10:40)
[2019-01-05] MEDS: Insulin Detemir 100 Units/ml Inj SC SCH (10:42)
--- NOTE | 2019-01-05 10:55 | CARD ---
APPROVED REPORT Date of service: 01/05/2019 EKG Measurement Heart [id number] <Conclusion> Sinus rhythm with 1st degree AV block Left bundle branch block Abnormal ECG
--- NOTE | 2019-01-05 11:41 | CP.PCM.DIS ---
Provider - Provider Date of Admission: 01/03/19 15:13 Attending physician: Dimitris Wolf MD Primary care physician: General surgery: Dr. Fan Cardiology: Dr. Kinjal Kincaid Consults: 01/04/19 04:54 Case Management Referral Routine Comment: Physician Instructions: Reason For Exam: Reason for Referral: Discharge Planning 01/04/19 10:13 Physician Consult Routine Comment: Consulting Provider: Esteban Fan Consulting Physician: Esteban Fan Reason for Consult: cirrhosis with ascites 01/04/19 10:57 Cardiology Consult Routine Comment: Consulting Provider: Efrain Kincaid V Consulting Physician: Efrain Kincaid V Reason for Consult: CAD with cirrhosis and ascites Time Spent in preparation of Discharge (in minutes): 30 Diagnosis - Discharge Diagnosis (1) Ascites Status: Acute Comment: S/p paracentesis. Follow up with Liver specialist Dr. Fan as outpatient. Recommended f/u to repeat blood work for monitoring of electrolytes and renal function while in diuresis (2) Hepatic cirrhosis Status: Acute Hospital Course - Lab Results Lab Results: Most Recent Lab Values WBC 2.6 K/uL (4.8-10.8) L 01/05/19 05:50 RBC 3.94 Mil/uL (3.80-5.20) 01/05/19 05:50 Hgb 10.8 g/dL (12.0-16.0) L 01/05/19 05:50 Hct 33.2 % (34.0-47.0) L 01/05/19 05:50 MCV 84.2 fl (81.0-99.0) 01/05/19 05:50 MCH 27.5 pg (27.0-31.0) 01/05/19 05:50 MCHC 32.6 g/dL (33.0-37.0) L 01/05/19 05:50 RDW 19.4 % (11.5-14.5) H 01/05/19 05:50 Plt Count 89 K/uL (130-400) L 01/05/19 05:50 MPV 8.2 fl (7.2-11.7) 01/05/19 05:50 Neut % (Auto) 52.1 % (50.0-75.0) 01/05/19 05:50 Lymph % (Auto) 33.2 % (20.0-40.0) 01/05/19 05:50 [place] % (Auto) 8.7 % (0.0-10.0) 01/05/19 05:50 Eos % (Auto) 3.6 % (0.0-4.0) 01/05/19 05:50 Baso % (Auto) 2.4 % (0.0-2.0) H 01/05/19 05:50 Neut # (Auto) 1.4 K/uL (1.8-7.0) L 01/05/19 05:50 Lymph # (Auto) 0.9 K/uL (1.0-4.3) L 01/05/19 05:50 [place] # (Auto) 0.2 K/uL (0.0-0.8) 01/05/19 05:50 Eos # (Auto) 0.1 K/uL (0.0-0.7) 01/05/19 05:50 Baso # (Auto) 0.1 K/uL (0.0-0.2) 01/05/19 05:50 PT 17.3 Seconds (9.8-13.1) H 01/05/19 05:50 INR 1.5 01/05/19 05:50 APTT 38.9 Seconds (25.6-37.1) H 01/05/19 05:50 Sodium 141 mmol/l (132-148) 01/05/19 05:50 Potassium 3.8 MMOL/L (3.6-5.0) 01/05/19 05:50 Chloride 102 mmol/L (98-107) 01/05/19 05:50 Carbon Dioxide 29 mmol/L (22-30) 01/05/19 05:50 Anion Gap 14 (10-20) 01/05/19 05:50 BUN 32 mg/dl (7-17) H 01/05/19 05:50 Creatinine 1.4 mg/dl (0.7-1.2) H 01/05/19 05:50 Est GFR ( Amer) 49 01/05/19 05:50 Est GFR (Non-Af Amer) 40 01/05/19 05:50 POC Glucose (mg/dL) 125 mg/dL (65-110) H 01/05/19 10:39 Random Glucose 72 mg/dL (65-105) 01/05/19 05:50 Calcium 9.4 mg/dL (8.4-10.2) 01/05/19 05:50 Phosphorus 3.9 mg/dl (2.5-4.5) 01/05/19 05:50 Magnesium 1.8 MG/DL (1.6-2.3) 01/05/19 05:50 Total Bilirubin 0.9 mg/dl (0.2-1.3) 01/05/19 05:50 AST 53 U/L (14-36) H D 01/05/19 05:50 ALT 29 U/L (9-52) 01/05/19 05:50 Alkaline Phosphatase 64 U/L (38-126) 01/05/19 05:50 Total Protein 6.6 G/DL (6.3-8.2) 01/05/19 05:50 Albumin 3.6 g/dL (3.5-5.0) 01/05/19 05:50 Globulin 3.0 gm/dL (2.2-3.9) 01/05/19 05:50 Albumin/Globulin Ratio 1.2 (1.0-2.1) 01/05/19 05:50 Urine HCG, Qual Negative (NEGATIVE) 01/03/19 22:41 Fluid Source Peritoneal/ascites 01/04/19 12:24 Fluid Appearance Cloudy (CLEAR) 01/04/19 12:24 Fluid WBC 119.0 /mm3 (0.0-300.0) 01/04/19 12:24 Fluid RBC 3861.0 /mm3 (0.0-0.0) H 01/04/19 12:24 Fluid Tot Cell Count 100 (0-0) H 01/04/19 12:24 Fluid Neutrophils 5.0 % (0-0) H 01/04/19 12:24 Fluid Lymphocytes 49.0 % (0-0) H 01/04/19 12:24 Fld Monocyte/Macrophag 46 % (0-0) H 01/04/19 12:24 Fluid Total Protein < 2.0 g/dL (NONE ESTABLISHED) 01/04/19 12:24 Fluid LDH 179 IU (NONE ESTABLISHED) 01/04/19 12:24 Fluid Comment Slightly bloody 01/04/19 12:24 - Hospital Course Hospital Course: 48 y/o F with extensive PMHx including Hepatic steatosis, recently diagnosed with Hepatic Cirrhosis, admitted with new onset worsening ascitis associated with dyspnea. On admission patient had a US guided paracentesis by IR specialist. 2.3 liters of clear yellow fluid was removed. Patient's detective homicide squad was consulted on admission. Per Dr. Fan, patient's diuretics were adjusted. Managed with furosemide 80 mg pO daily ( was taking furosemide 40 mg PO BID at home ), spironolactone 150 mg PO daily( was taking 50 mg BID at home). Albumin IV was given as per detective homicide squad recommendations. Patient was seen and evaluated at bedside this morning. Patient feel well, and denies abdominal pain or SOB. Reports has been urinating without any difficulty. Has been afebrile, and BP stable. Cleared for discharged by Cardiology and general surge ry(detective homicide squad). Patient is stable for discharge home and will follow up with PCP and Liver specialist as outpatient. DC meds: c/w current treatment of chronic medical conditions c/w Spironolactone 150 mg PO daily c/w Furosemide 80 mg PO daily - Date & Time of H&P Date of H&P: 01/03/19 Discharge Exam - Head Exam Head Exam: ATRAUMATIC - Eye Exam Eye Exam: Normal appearance - ENT Exam ENT Exam: Mucous Membranes Moist - Respiratory Exam Respiratory Exam: Clear to PA & Lateral, NORMAL BREATHING PATTERN. absent: Decreased Breath Sounds, Rales, Rhonchi - Cardiovascular Exam Cardiovascular Exam: REGULAR RHYTHM, +S1, +S2 - GI/Abdominal Exam GI & Abdominal Exam: Distended (slightly distended, however improved significantly after paracentesis), Normal Bowel Sounds, Organomegaly, Soft. absent: Guarding, Rebound, Rigid, Tenderness - Extremities Exam Extremities exam: normal inspection Additional comments: No edema in lower extremities, no calf tenderness. - Back Exam Back exam: NORMAL INSPECTION. absent: CVA tenderness (L), CVA tenderness (R) - Neurological Exam Neurological exam: Alert, Oriented x3 - Psychiatric Exam Psychiatric exam: Normal Affect, Normal Mood Discharge Plan - Discharge Medications Prescriptions: Furosemide [Lasix] 80 mg PO DAILY #30 tab Spironolactone [Aldactone] 150 mg PO DAILY #90 tab - Follow Up Plan Condition: GOOD Disposition: HOME/ ROUTINE Patient education suggested?: Yes Referrals: Efrain Kincaid MD [Staff Provider] - Esteban Fan MD [Staff Provider] - Hector Granados MD [Family Provider] -
--- NOTE | 2019-01-05 11:48 | CP.PCM.PN ---
Subjective - Date & Time of Evaluation Date of Evaluation: 01/05/19 Time of Evaluation: 11:46 - Subjective Subjective: Surgery Progress note- Dr Phan Patient seen and examined at bedside. Medications altered yesterday. Urine output increased. Patient feeling significantly better. Denies fevers, chills, chest pain. Abd improved. Objective - Vital Signs/Intake and Output Vital Signs (last 24 hours): Temp Pulse Resp BP Pulse Ox 97.5 F L 79 19 151/75 H 96 01/05/19 07:35 01/05/19 10:36 01/05/19 07:35 01/05/19 10:36 01/05/19 07:35 - Medications Medications: Current Medications Allopurinol (Zyloprim) 300 mg PO DAILY [facility] Last Admin: 01/05/19 10:39 Dose: 300 mg Clonidine HCl (Catapres) 0.2 mg PO Q12 [facility] Last Admin: 01/04/19 22:11 Dose: 0.2 mg Clopidogrel Bisulfate (Plavix) 75 mg PO DAILY [facility] Last Admin: 01/05/19 10:30 Dose: 75 mg Ergocalciferol (Drisdol 50,000 Intl Units Cap) 1 cap PO TH [facility] Famotidine (Pepcid) 20 mg PO BID [facility] Last Admin: 01/05/19 10:32 Dose: 20 mg Furosemide (Lasix) 80 mg PO DAILY [facility] Last Admin: 01/05/19 10:32 Dose: 80 mg Home Med (Vilazodone Hcl [Viibryd]) 20 mg PO DAILY [facility] Insulin Detemir (Levemir) 5 units SC Q12 [facility] Last Admin: 01/04/19 22:16 Dose: 5 u Insulin Human Lispro (Humalog) 6 units SC ACTID [facility] Last Admin: 01/05/19 08:32 Dose: Not Given Levothyroxine Sodium (Synthroid) 200 mcg PO DAILY@0630 [facility] Last Admin: 01/05/19 06:27 Dose: 200 mcg Loratadine (Claritin) 10 mg PO DAILY [facility] Last Admin: 01/05/19 10:31 Dose: 10 mg Metformin HCl (Glucophage) 500 mg PO BID [facility] Last Admin: 01/05/19 10:31 Dose: 500 mg Metoprolol Succinate (Toprol Xl) 100 mg PO DAILY [facility] Last Admin: 01/05/19 10:36 Dose: 100 mg Montelukast Sodium (Singulair) 10 mg PO HS [facility] Last Admin: 01/04/19 22:11 Dose: 10 mg Ranolazine (Ranexa) 500 mg PO Q12 [facility] Last Admin: 01/05/19 10:40 Dose: 500 mg Spironolactone (Aldactone) 150 mg PO DAILY [facility] Last Admin: 01/05/19 10:25 Dose: 150 mg Vitamin E (Vitamin E 400 Units Cap) 800 intlu PO QAM [facility] Last Admin: 01/05/19 10:37 Dose: 800 intlu Vitamin E (Vitamin E 400 Units Cap) 1,200 intlu PO HS [facility] Last Admin: 01/04/19 22:12 Dose: 1,200 intlu - Labs Labs: 01/05/19 05:50 01/05/19 05:50 PT 17.3 Seconds (9.8-13.1) H 01/05/19 05:50 INR 1.5 01/05/19 05:50 APTT 38.9 Seconds (25.6-37.1) H 01/05/19 05:50 - Constitutional Appears: Non-toxic, No Acute Distress - Head Exam Head Exam: ATRAUMATIC - Eye Exam Eye Exam: EOMI. absent: Scleral icterus - ENT Exam ENT Exam: Mucous Membranes Moist - Respiratory Exam Respiratory Exam: NORMAL BREATHING PATTERN. absent: Accessory Muscle Use, Respiratory Distress - Cardiovascular Exam Cardiovascular Exam: REGULAR RHYTHM. absent: Bradycardia, Tachycardia - GI/Abdominal Exam GI & Abdominal Exam: Distended (baseline), Soft. absent: Firm, Guarding, Rigid, Tenderness - Neurological Exam Neurological Exam: Alert, Awake, Oriented x3 - Skin Skin Exam: Intact, Normal Color Assessment and Plan - Assessment and Plan (Free Text) Assessment: 48F with liver cirrhosis and ascites Plan: continue w/ medical therapy spironolactone to 150 mg daily furosemide to 80 mg daily\ no acute surgical intervention at this time cleared for discharge from a surgical stand point discussed w/ Surgical attending Merchant [id number]
--- NOTE | 2019-01-05 14:07 | CARD ---
APPROVED REPORT Date of service: 01/03/2019 EKG Measurement Heart [id number] MD [id number] <Conclusion> Normal sinus rhythm Left bundle branch block Abnormal ECG
[2019-01-06] MEDS ORDERED: Ergocalciferol 50,000 Intl Units Cap PO SCH (15:49)
== END 2019-01-05 17:06 | disposition home or self-care (01) ==
LOC: H.ER 11:37 → H.ERHOLD 15:13 → H.MEDSURG1 18:34
DX: K74.60 Unspecified cirrhosis of liver (principal); R18.8 Other ascites; K75.81 Nonalcoholic steatohepatitis (NASH); F41.9 Anxiety disorder, unspecified; M19.90 Unspecified osteoarthritis, unspecified site; J45.909 Unspecified asthma, uncomplicated; I25.10 Atherosclerotic heart disease of native coronary artery without angina pectoris; I50.9 Heart failure, unspecified; F32.9 Major depressive disorder, single episode, unspecified; I11.0 Hypertensive heart disease with heart failure; K21.9 Gastro-esophageal reflux disease without esophagitis; E78.00 Pure hypercholesterolemia, unspecified; E03.9 Hypothyroidism, unspecified; Z86.73 Personal history of transient ischemic attack (TIA), and cerebral infarction without residual deficits; Z87.01 Personal history of pneumonia (recurrent); Z86.711 Personal history of pulmonary embolism; D61.818 Other pancytopenia; G47.33 Obstructive sleep apnea (adult) (pediatric); E78.5 Hyperlipidemia, unspecified; E66.01 Morbid (severe) obesity due to excess calories; N17.9 Acute kidney failure, unspecified; E10.43 Type 1 diabetes mellitus with diabetic autonomic (poly)neuropathy; M81.0 Age-related osteoporosis without current pathological fracture; Z68.43 Body mass index [BMI] 50.0-59.9, adult; Z95.5 Presence of coronary angioplasty implant and graft; Z79.899 Other long term (current) drug therapy; Z79.4 Long term (current) use of insulin; Z79.02 Long term (current) use of antithrombotics/antiplatelets; Z87.440 Personal history of urinary (tract) infections; Z79.890 Hormone replacement therapy; I25.2 Old myocardial infarction
CPT/HCPCS: 36415; 49083; 71045; 76942; 80048; 80053; 82042; 82945; 82948; 83615; 83735; 84100; 84703; 85025; 85610; 85730; 89051; 93005; 99284; C1729; G0378; P9047

== ENCOUNTER 2019-01-10 08:46 | Emergency (ER) | payer MEDICARE ==
[2019-01-10 08:48] VITALS: BMI 44.0
[2019-01-10 08:50] VITALS: RESP 18
--- NOTE | 2019-01-10 10:00 | ED PDOC ---
HPI:Nausea, Vomiting, Diarrhea Time Seen by Provider: 01/10/19 09:08 Chief Complaint (Provider): Dizziness and Nausea History Per: Patient History/Exam Limitations: no limitations Onset/Duration Of Symptoms: Days (x 4) Current Symptoms Are (Timing): Still Present Associated Symptoms: Nausea, Vomiting (x 1), Other (dizziness) Additional Complaint(s): 48 year old female with CHF, DM and HTN presents to the ED for evaluation of dizziness, nausea and vomiting for 4 days. Patient was discharged on the 3rd after paracentesis. Since then, she has experienced a 30 pound weight loss due to increased urine output. She takes Lasix and Spironolactone. Denies headache, chest pain and shortness of breath. PMD: Dr. Granados Past Medical History Reviewed: Historical Data, Nursing Documentation, Vital Signs Vital Signs: Last Vital Signs Temp 97.5 F L 01/10/19 08:48 Pulse 71 01/10/19 08:48 Resp 18 01/10/19 08:48 BP 124/78 01/10/19 08:48 Pulse Ox 99 01/10/19 08:48 - Medical History PMH: Anemia, Anxiety, Arthritis, Asthma, Bronchitis, CAD, CHF, Depression, Diabetes, Deep Vein Thrombosis, Fractures, GERD, HTN, Hypercholesterolemia, Hypothyroidism, Peripheral Edema, Pneumonia, Pulmonary Embolism, Sleep Apnea (use c-pap), TIA (x2 2004/2015) Denies: HIV, Osteoporosis, Chronic Kidney Disease - Surgical History Surgical History: Coronary Stent (x4), Endoscopy, Tonsillectomy Denies: Appendectomy, Cholecystectomy - Family History Family History: States: Unknown Family Hx - Immunization History Hx Tetanus Toxoid Vaccination: No Hx Influenza Vaccination: Yes Hx Pneumococcal Vaccination: No - Home Medications Home Medications: Ambulatory Orders Medication Instructions Recorded Levothyroxine [Synthroid] 200 mcg PO DAILY 05/30/15 Montelukast [Singulair] 10 mg PO HS 07/18/16 Clopidogrel [Plavix] 75 mg PO DAILY #0 tab 08/01/16 Vilazodone HCl [Viibryd] 20 mg PO DAILY 10/07/16 cloNIDine [Catapres] 0.2 mg PO Q12 10/07/16 Ergocalciferol (Vitamin D2) 50,000 unit PO TH 01/28/17 [Vitamin D2] Levocetirizine Dihydrochloride 5 mg PO HS 01/28/17 [Xyzal] Rosuvastatin Calcium [Crestor] 10 mg PO Q72H 01/28/17 metFORMIN [glucOPHAGE] 500 mg PO BID 01/28/17 Metoprolol Succinate XL [Toprol XL] 100 mg PO DAILY 08/03/17 Insulin Aspart, Recombinant 6 unit SC ACTID 08/17/17 [Novolog] Nystatin [Nyamyc] 1 appl TOP BID 09/18/17 Allopurinol [Zyloprim] 300 mg PO DAILY 01/18/18 Vitamin E [Vitamin E 400 Units Cap] 800 unit PO QAM 11/30/18 Famotidine [Pepcid] 20 mg PO BID 01/03/19 Insulin Glargine,Hum.rec.anlog 5 unit SC Q12 01/03/19 [Basaglar Kwikpen U-100] Ranolazine [Ranexa] 500 mg PO Q12 01/03/19 Vitamin E [Vitamin E 400 Units Cap] 1,200 unit PO HS 01/03/19 Furosemide [Lasix] 80 mg PO DAILY #30 tab 01/05/19 Spironolactone [Aldactone] 150 mg PO DAILY #90 tab 01/05/19 - Allergies Allergies/Adverse Reactions: Allergies Allergy/AdvReac Type Severity Reaction Status Date / Time amlodipine [From Norvasc] Allergy RASH Verified 10/20/18 08:13 ciprofloxacin [From Cipro] Allergy NAUSEA Verified 12/21/18 12:28 codeine Allergy FATIGUE Verified 12/21/18 12:28 Iodinated Contrast- Oral and Allergy RASH Verified 12/21/18 12:28 IV Dye kiwi Allergy RASH Verified 12/21/18 12:28 mustard Allergy RASH Verified 12/21/18 12:28 Penicillins Allergy ANAPHYLAXIS Verified 12/21/18 12:28 pepper (genus Capsicum) Allergy RASH Verified 12/21/18 12:28 [pepper] Sulfa (Sulfonamide Allergy RASH Verified 12/21/18 12:28 Antibiotics) tomato Allergy RASH Verified 12/21/18 12:28 metoclopramide HCl AdvReac DIZZINESS Verified 12/21/18 12:28 [From Reglan] filberts Allergy SWELLING Uncoded 12/21/18 12:28 IV CONTRAST Allergy RASH Uncoded 12/21/18 12:28 Review of Systems ROS Statement: Except As Marked, All Systems Reviewed And Found Negative Cardiovascular: Negative for: Chest Pain Respiratory: Negative for: Shortness of Breath Gastrointestinal: Positive for: Nausea Neurological: Positive for: Dizziness. Negative for: Headache Physical Exam - Reviewed Nursing Documentation Reviewed: Yes Vital Signs Reviewed: Yes - Physical Exam Appears: Positive for: No Acute Distress Head Exam: Positive for: ATRAUMATIC, NORMAL INSPECTION, NORMOCEPHALIC Skin: Positive for: Normal Color, Warm, Dry Eye Exam: Positive for: EOMI, PERRL (left eye; patch over right eye) Neck: Positive for: Normal, Painless ROM, Supple Cardiovascular/Chest: Positive for: Regular Rate, Rhythm. Negative for: Murmur Respiratory: Positive for: Crackles (bibasilar crackles). Negative for: Respiratory Distress Gastrointestinal/Abdominal: Positive for: Soft (morbidly obese). Negative for: Tenderness, Distended Back: Positive for: Normal Inspection. Negative for: L CVA Tenderness, R CVA Tenderness Extremity: Positive for: Normal ROM (x 4). Negative for: Deformity Neurological/Psych: Positive for: Awake, Alert, Normal Tone, Oriented (x 3). Negative for: Motor/Sensory Deficits - Laboratory Results Result Diagrams: 01/10/19 09:55 01/10/19 09:55 - ECG Interpretation Of ECG: SR @ 66, LBBB (old compared to 01/03/19). O2 Sat by Pulse Oximetry: 99 (RA) Pulse Ox Interpretation: Normal Medical Decision Making Medical Decision Makin:24 Impression: dizziness and nausea Initial Plan: --Blood type --EKG --CMP --Urine dip --Urine preg --CBC --PTT --PT --CXR --Glucose POC --UA Accession No. : [id number] Patient Name / ID : KLAUS Hernandez / [id number] Exam Date : 01/10/2019 09:34:18 ( Approved ) Study Comment : Sex / Age : F / 48Y Creator : Radha Lindsey MD Dictator : Radha Lindsey MD Manager Of Radiology : Emergency Medicine Physician : Radha Lindsey MD Approver2 : Report Date : 01/10/2019 11:09:24 My Comment : Date of service: 01/10/2019 HISTORY: Dizziness COMPARISON: 01/03/2019. TECHNIQUE: Chest PA and lateral FINDINGS: LINES AND TUBES: None. LUNG AND PLEURA: The lungs are well inflated and clear. No pleural effusion or pneumothorax. HEART AND MEDIASTINUM: The heart is not enlarged. No aortic atherosclerotic calcifications present. The hilar and mediastinal contours are within normal limits. SKELETAL STRUCTURES: The bony structures are within normal limits for the patient's age. VISUALIZED UPPER ABDOMEN: Normal. OTHER FINDINGS: None. IMPRESSION: No active pulmonary disease. 12:[address] Manisha Kincaid, agrees with discharge home. 13:[address] Granados, agrees with discharge home, pt to follow-up with Dr. Moya for reevaluation and possible change in medication. 14:[address] Moya, recommends decreasing dose of both Spironolactone (150 mg) and Lasix (80 mg) by half. Follow-up in office in one week. Scribe Attestation: Documented by Randi June, acting as a scribe for Mae Phelps MD Provider Scribe Attestation: All medical record entries made by the Scribe were at my direction and personally dictated by me. I have reviewed the chart and agree that the record accurately reflects my personal performance of the history, physical exam, medical decision making, and the department course for this patient. I have also personally directed, reviewed, and agree with the discharge instructions and disposition Disposition - Clinical Impression Clinical Impression: Lightheadedness - Disposition Referrals: Esteban Moya MD [Staff Provider] - Disposition: Routine/Home Disposition Time: 13:57 Condition: STABLE Additional Instructions: FOLLOW-UP WITH DR. MOYA IN ONE WEEK. DECREASE THE DOSES OF BOTH STEPH NOLACTONE AND LASIX BY 1/2 (IE. 75 MG AND 40 MG, RESPECTIVELY0. Instructions: Dizziness, Nonvertigo, (DC) Forms: [employer] ([place])
[2019-01-10 10:02] LABS: BASO # 0.1 K/uL (0.0-0.2); BASO % 2.3 % (0.0-2.0); EOS # 0.1 K/uL (0.0-0.7); EOS % 2.8 % (0.0-4.0); HEMOGLOBIN 13.5 g/dL (12.0-16.0); LYMPH # 1.2 K/uL (1.0-4.3); LYMPH % 28.6 % (20.0-40.0); MEAN CELL VOLUME 84.4 fl (81.0-99.0); MEAN CORPUSCULAR HEMOGLOBIN 27.5 pg (27.0-31.0); MEAN CORPUSCULAR HGB CONC 32.6 g/dL (33.0-37.0); MEAN PLATELET VOLUME 8.4 fl (7.2-11.7); MONO # 0.4 K/uL (0.0-0.8); MONO % 10.1 % (0.0-10.0); NEUT # 2.3 K/uL (1.8-7.0); NEUT % 56.2 % (50.0-75.0); NRBC % 0.2 % (0.0-0.0); RBC 4.92 Mil/uL (3.80-5.20); RED CELL DISTRIBUTION WIDTH 19.1 % (11.5-14.5); WHITE BLOOD COUNT 4.1 K/uL (4.8-10.8)
[2019-01-10 10:16] LABS: ALB/GLOB RATIO 1.1 (1.0-2.1); ALBUMIN 4.1 g/dL (3.5-5.0); CALCIUM 10.9 mg/dL (8.4-10.2)
--- NOTE | 2019-01-10 11:13 | RAD ---
Date of service: 01/10/2019 HISTORY: Dizziness COMPARISON: 01/03/2019. TECHNIQUE: Chest PA and lateral FINDINGS: LINES AND TUBES: None. LUNG AND PLEURA: The lungs are well inflated and clear. No pleural effusion or pneumothorax. HEART AND MEDIASTINUM: The heart is not enlarged. No aortic atherosclerotic calcifications present. The hilar and mediastinal contours are within normal limits. SKELETAL STRUCTURES: The bony structures are within normal limits for the patient's age. VISUALIZED UPPER ABDOMEN: Normal. OTHER FINDINGS: None. IMPRESSION: No active pulmonary disease.
[2019-01-10 11:50] LABS: INR 1.3; PROTHROMBIN TIME 14.7 Seconds (9.8-13.1)
[2019-01-10 11:53] LABS: PARTIAL THROMBOPLASTIN TIME 45.2 Seconds (25.6-37.1)
[2019-01-10 12:03] LABS: SQUAMOUS EPITHIAL 1 /hpf (0-5); URINE BACTERIA RARE (<OCC); URINE BILIRUBIN NEGATIVE (NEGATIVE); URINE BLOOD NEGATIVE (NEGATIVE); URINE CLARITY CLEAR (Clear); URINE COLOR YELLOW (YELLOW); URINE GLUCOSE (UA) NEG (NEGATIVE); URINE HYALINE CAST 0-2 /hpf (0-2); URINE LEUKOCYTE ESTERASE TRACE Leu/uL (Negative); URINE PROTEIN NEGATIVE (NEGATIVE); URINE UROBILINOGEN 0.2-1.0 mg/dL (0.2-1.0)
[2019-01-10] MEDS ORDERED: Albuterol 0.083% Inhal Sol (2.5 mg/3 mL) UD INH STA (14:16)
[2019-01-10] MEDS ORDERED: Albuterol 0.083% Inhal Sol (2.5 mg/3 mL) UD ONE (14:47)
--- NOTE | 2019-01-10 15:09 | CARD ---
APPROVED REPORT Date of service: 01/10/2019 EKG Measurement Heart [id number] <Conclusion> Sinus rhythm with 1st degree AV block Left bundle branch block Abnormal ECG
[2019-01-10] MEDS ORDERED: Piperacillin/Tazobact 3.375 gm Inj IVPB ONE (16:34)
[2019-01-10] MEDS ORDERED: Sod Polystyrene Sulf 15 gm/60 ml Susp PO STA (17:00)
[2019-01-10 18:29] VITALS: BP 133/69; PULSE 79; TEMP 97.9; O2SAT 96
== END 2019-01-10 18:25 | disposition home or self-care (01) ==
LOC: H.ER 08:46
DX: R42 Dizziness and giddiness (principal); E03.9 Hypothyroidism, unspecified; E11.9 Type 2 diabetes mellitus without complications; E78.00 Pure hypercholesterolemia, unspecified; I11.0 Hypertensive heart disease with heart failure; K21.9 Gastro-esophageal reflux disease without esophagitis; Z79.4 Long term (current) use of insulin; Z86.711 Personal history of pulmonary embolism; Z86.718 Personal history of other venous thrombosis and embolism; Z86.73 Personal history of transient ischemic attack (TIA), and cerebral infarction without residual deficits; Z88.1 Allergy status to other antibiotic agents; Z88.2 Allergy status to sulfonamides; Z88.8 Allergy status to other drugs, medicaments and biological substances; Z95.5 Presence of coronary angioplasty implant and graft; Z88.0 Allergy status to penicillin
CPT/HCPCS: 71046; 80053; 81003; 81025; 82948; 84132; 85025; 85610; 85730; 86850; 86900; 93005; 94640; 96374; 99285; J2405